=== PATIENT | male | born 1960 | race Caucasian/White ===

== ENCOUNTER → 2017-01-04 | Outpatient (CLI) | payer BC ==
[2016-03-27 10:04] VITALS: BP 153/91
[2017-01-04 15:57] LABS: BLOOD UREA NITROGEN 23 mg/dL (7-18); CALCIUM 8.4 mg/dL (8.5-10.1); CARBON DIOXIDE 27.5 mmol/L (21-32); CHLORIDE 104 mmol/L (98-107); COR NA(FOR HYPERGLY) 144 mmol/L (136-145); GLUCOSE 166 mg/dL (65-99); SODIUM 142 mmol/L (136-145); eGFR BLACK RACES > 60 (>60); eGFR NON BLACK RACES > 60 (>60)
[2017-01-04 16:09] LABS: B-TYPE NATRIURETIC PEPTIDE 76.9 pg/mL (0-79)
--- NOTE | 2017-01-04 16:20 | RAD ---
HISTORY: Edema Study: Chest two-view Comparison: March 26, 2016 Findings: The trachea is midline. The cardiac silhouette is upper limits normal in size. No congestive heart failure is noted.. The lungs are clear without focal infiltrate or effusion. The bony thorax is un remarkable. IMPRESSION: 1. No acute cardiopulmonary disease. Reported By:
== END ==
LOC: LAB 15:23
PROVIDERS: ATTEND Obstetrics & Gynecology Obstetrics
DX: R60.0 Localized edema (principal)
CPT/HCPCS: 36415; 71020; 80048; 83880

== ENCOUNTER 2020-10-19 06:38 | Inpatient (IN) ==
[2020-10-19] MEDS ORDERED: DUONEB 0.5 MG/3 MG (3 mL) NEB ONE (06:50)
[2020-10-19] MEDS ORDERED: NS 1000 ML 1,000 ML ONE ×2 (06:50→22:44)
[2020-10-19] MEDS ORDERED: SOLU-Medrol 125 MG VIAL ONE (06:50)
[2020-10-19] MEDS ORDERED: OFIRMEV IV 1000 MG VIAL 1,000 MG/100 ML VIAL IV ONE ×2 (06:50→07:10)
[2020-10-19 06:59] LABS: ABG BASE EXCESS 3.6 mmol/L (-2.0-2.0); ABG HCO3 25.9 mmol/L (22-26)
[2020-10-19 07:00] LABS: ABG ALLEN TEST POS
[2020-10-19] MEDS ORDERED: SOLU-Medrol 125 MG VIAL IVP ONE (07:05)
[2020-10-19] MEDS: NS 1000 ML 1,000 ML IV SCH ×2 (07:13→22:45)
[2020-10-19] MEDS ORDERED: ZOSYN VIAL 3.375 GRAMS 3.375 G in NS 100 ML IV + SPIKE MINIBAG* 100 ML IV ONE (07:22)
--- NOTE | 2020-10-19 07:23 | DR.SOBA ---
HPI Time Seen Time Seen by Provider: 10/19/20 07:24 Primary Care Physician Primary Care Physician: ANA M ROLAND HPI Comment HPI Comment: PATIENT IS 60YR OLD MALE IN ER WITH INCREASING SOB, COUGH, CONGESTION, LOW OXYGEN SATURATION TIMES 2 DAYS. WORSE TODAY. OXYGEN SATURATION IN THIRTIES IN ER. PATIENT TESTED POSITIVE COVID 19 VIRUS TEST ON 09/12/2021. PATIENT IS WEAK, TIRED AND HAVING GENERALIZED BODY ACHE. PATIENT IS RUNNING FEVER. Complaints Chief Complaint Doctors Comments: INCREASING SOB, LOW OXYGEN SAT, COUGH, CONGESTION AND COVID 19 VIRUS POSITIVE. Chief Complaint:: COVID POSITIVE ON 10/13/20. SHORTNESS OF BREATH BECAME WORSE ON MONDAY. UPON ARRIVAL TO THE ER, PT. EMERY/ASHY IN COLOR. LABORED RESPIRATIONS WITH ACCESSORY MUSCLE USE. SHALLOW RESPIRATIONS. O2 SAT 39% ON ROOM AIR. COVID-19 Coronavirus risk:travel/contact w/high risk person: Yes Has patient experienced Coronavirus symptoms: Yes Coronavirus symptoms experienced: Fever and Shortness of Breath Reviewed Nurses Notes Reviewed: Yes Source History Provided: Patient Mode of Arrival Mode of Arrival: Wheelchair Timing Onset of Chief Complaint: 10/17/20 Duration Duration: Days Context Onset:: At Rest PE Risk Factors:: None History of:: None Currently on:: Neither Modifying Factors Worsens:: Exertion and Lying Flat Improves:: Rest and Sitting Up Associated Signs and Symptoms Associated Signs and Symptoms: Cough and Nasal Congestion If Chest Pain Quality: Aching and Pleuritic Location: Substernal If Cough Cough: Productive and Yellow PMH PMH Past Medical History: Yes Past Medical History: Diabetes, Hypertension and SVT Past Surgical History: Yes Surgical History: Appendectomy and Ortho Surgery Family History History of Family Medical Conditions: Yes Family Medical History: Diabetes Mellitus, Cancer and Hypertension Social History Does patient currently use any type of tobacco product: No Have you used tobacco products in the last 12 months: No Type of Tobacco Use: None Does any household member use tobacco: No Alcohol Use: None Do you use any recreational Drugs:: No Lives With: Family Lives Where: Home Travel Risk Coronavirus risk:travel/contact w/high risk person: Yes Has patient experienced Coronavirus symptoms: Yes Coronavirus symptoms experienced: Fever and Shortness of Breath Infectious screening In the last 2 months have you had wt loss of >10#?: NO Have you had fever, night sweats or hemotysis?: No Have you traveled outside the country in the last 6 months?: No Isolation: Droplet ROS Review of Systems Constitutional: See HPI, Fever, Weakness and Fatigue Eyes: No Symptoms Reported and See HPI ENTM: See HPI, Nose Discharge and Nose Congestion Respiratoy: See HPI, Productive Cough, Short of Breath and Wheezing Cardiovascular: See HPI and Chest Pain (PLEURITIC CHEST PAIN.) Gastrointestinal/Abdominal: No Symptoms Reported and See HPI; negative Abdominal Pain, Diarrhea and Vomiting Genitourinary: No Symptoms Reported and See HPI; negative Dysuria, Frequency and Hematuria Neurological: See HPI, Headache and Weakness Musculoskeletal: See HPI, Back Pain and Muscle Pain Integumentary: No Symptoms Reported and See HPI; negative Change in Color, Rash and Juandice Hematologic/Lymphatic: No Symptoms Reported and See HPI; negative Easy Bruising and Swollen Glands Endocrine: No Symptoms Reported and See HPI; negative Increased Thirst and Increased Urine Psychiatric: No Symptoms Reported and See HPI All Other Systems: Reviewed and Negative PE Vital Signs Vitals: Temperature 103.3 F Pulse Rate 97 Respiratory Rate 29 Blood Pressure [Left Arm] 133/73 Blood Pressure 96/58 O2 Sat by Pulse Oximetry 98 General Limitations: No Limitations General Appearance: Alert and In Distress Head Head Exam: Normal Inspection and Atraumatic Eyes Eye exam: Normal Appearance and PERRL; negative Scleral Icterus and Conjunctival Injection ENT ENT Exam: Normal External Ear Exam and TM's Normal Bilaterally; negative Normal Oropharynx Neck Neck Exam: Normal Inspection, Trachea Midline and Lymphadenopathy; negative Tenderness Chest Chest Inspection: Normal Inspection and Symmetric Chest Wall Rise; negative Tenderness Respiratory Respiratory Exam: Normal Lung Sounds Bilat; negative Accessory Muscle Use Respiratory Exam: Bilateral: Wheezing and Bilateral: Crackles and Lower: Wheezing and Lower: Crackles Cardiovascular Cardiovascular Exam: Regular Rate, Normal Rhythm and Normal Heart Sounds; negative Systolic Murmur and Diastolic Murmur Abdominal Exam Abdominal Exam: Normal Inspection, Normal Bowel Sounds and Soft; negative Tenderness Extremities Extremities Exam: Normal Inspection, Tenderness and Normal Capillary Refill; negative Edema and Calf Tenderness Back Back Exam: Normal Inspection and Tenderness Neurologic Neurological Exam: Alert, Oriented X3 and CN II-XII Intact; negative Motor Sensory Deficit Psychiatric Psychiatric Exam: Normal Affect and Anxious Skin Skin Exam: Dry MDM Additional Information Obtained Additional Information Obtained From: Old Records Differential Diagnosis Differential Diagnosis: Asthma, Bronchitis, CHF, Mycardial Infarction, Pneumonia, Pneumothorax, Pulmonary embolism and Respiratory Insufficiency COURSE Treatment Treatment: SEE ORDERS. PATIENT PLACED ON BI-PAP BY RT IN ER, O2 SAT IMPROVED. NS 1L IV BOLUS, SOLUMEDROL 125MG IV, DUO NEB, TYLENOL 1GM IVPB, ZOSYN 3.375MG IVPB AND REMDISIVIR 200MG IVPB IN ER. Reevaluation 1st: Improved (TEMP IMPROVED) Consultation Consultation Comments: DISCUSSED PATIENT WITH DR. BRUMFIELD. HE WILL ADMIT PATIENT. Education/Counseling Education/Counseling: Patient Educated On: Diagnosis ROR Labs Reviewed Laboratory Results Reviewed?: Yes Result Diagrams: 11/05/20 04:25 11/05/20 04:25 Laboratory: 10/19/20 06:50 Blood Blood Culture - Final 10/19/20 06:50 Blood Blood Culture - Final WBC 23.0 X10^3/uL (3.6-10.0) H 10/19/20 06:50 RBC 4.69 X10^6/uL (4.7-6.0) L 10/19/20 06:50 Hgb 14.8 g/dL (13.5-18.0) 10/19/20 06:50 Hct 43.3 % (42.0-54.0) 10/19/20 06:50 MCV 92.2 fL (80.0-100.0) 10/19/20 06:50 MCH 31.6 pg (27.0-34.0) 10/19/20 06:50 MCHC 34.3 g/dL (33.0-35.0) 10/19/20 06:50 RDW 13.3 % (11.6-16.5) 10/19/20 06:50 Plt Count 331 X10^3/uL (150.0-450.0) 10/19/20 06:50 Plt Count Comment Adequate (ADEQUATE) 10/19/20 06:50 MPV 7.9 fL (7.4-11.0) 10/19/20 06:50 Neut % (Auto) 88.4 % (42.0-75.0) H 10/19/20 06:50 Lymph % (Auto) 4.6 % (21.0-51.0) L 10/19/20 06:50 Lake % (Auto) 6.6 % (0.0-13.0) 10/19/20 06:50 Eos % (Auto) 0.0 % (0.9-2.9) L 10/19/20 06:50 Baso % (Auto) 0.4 % (0.2-1.0) 10/19/20 06:50 Neut # (Auto) 20.3 x10^3/uL (2.2-4.8) H 10/19/20 06:50 Lymph # (Auto) 1.1 X10^3/uL (1.3-2.9) L 10/19/20 06:50 Lake # (Auto) 1.5 x10^3/uL (0.3-0.8) H 10/19/20 06:50 Eos # (Auto) 0.0 x10^3/uL (0.0-0.2) 10/19/20 06:50 Baso # (Auto) 0.1 X10^3/uL (0.0-0.1) 10/19/20 06:50 Absolute Nucleated RBC 0.1 /100WBC 10/19/20 06:50 Total Counted 100 10/19/20 06:50 Neutrophils % (Manual) 93 % (39-76) H 10/19/20 06:50 Band Neutrophils % 1 % (0-10) 10/19/20 06:50 Lymphocytes % (Manual) 3 % (13-43) L 10/19/20 06:50 Monocytes % (Manual) 5 % (4-9) 10/19/20 06:50 Plt Morphology Comment Normal (NORMAL) 10/19/20 06:50 RBC Morphology Normal (NORMAL) 10/19/20 06:50 PT 16.1 SECONDS (11.8-14.3) 10/19/20 06:50 INR Target Range - 10/19/20 06:50 INR 1.33 (0.8-1.3) H 10/19/20 06:50 APTT 31.5 SECONDS (22.9-36.5) 10/19/20 06:50 PTT Comment - 10/19/20 06:50 D-Dimer 0.76 ug/ml (0.0-0.57) H* 10/19/20 06:50 Sample Site Rrad 10/19/20 06:47 ABG pH 7.530 (7.35-7.45) H 10/19/20 06:47 ABG pCO2 31.0 mmHg (35.0-45.0) L 10/19/20 06:47 ABG pO2 33.0 mmHg (80.0-100.0) L* 10/19/20 06:47 ABG HCO3 25.9 mmol/L (22-26) 10/19/20 06:47 ABG O2 Saturation 73.0 % (90-100) L* 10/19/20 06:47 ABG Base Excess 3.6 mmol/L (-2.0-2.0) H 10/19/20 06:47 Abad Test Pos 10/19/20 06:47 A-a Gradient 641.0 mmHg 10/19/20 06:47 FiO2 100.0 10/19/20 06:47 Blood Gas Comments Gail well ah 10/19/20 06:47 Sodium 139 mmol/L (136-145) 10/19/20 06:50 Corrected Sodium 145 mmol/L (136-145) 10/19/20 06:50 Potassium 3.4 mmol/L (3.5-5.1) L 10/19/20 06:50 Chloride 100 mmol/L (98-107) 10/19/20 06:50 Carbon Dioxide 23.5 mmol/L (21-32) 10/19/20 06:50 BUN 26 mg/dL (7-18) H 10/19/20 06:50 Creatinine 1.80 mg/dL (0.70-1.30) H 10/19/20 06:50 Est GFR (MDRD) Af Amer 50 (>60) L 10/19/20 06:50 Est GFR (MDRD) Non-Af 41 (>60) L 10/19/20 06:50 Glucose 361 mg/dL (65-99) H 10/19/20 06:50 Lactic Acid 3.9 mmol/L (0.4-2.0) H 10/19/20 06:50 Calcium 9.7 mg/dL (8.5-10.1) 10/19/20 06:50 Corrected Calcium 10.5 mg/dL (8.5-10.1) H 10/19/20 06:50 Ferritin 779 ng/mL (26-388) H 10/19/20 06:50 Total Bilirubin 1.00 mg/dL (0.2-1.0) 10/19/20 06:50 AST 25 Units/L (15-37) 10/19/20 06:50 ALT 18 Units/L (12-78) 10/19/20 06:50 Alkaline Phosphatase 107 Units/L (46-116) 10/19/20 06:50 Creatine Kinase 49 Units/L (39-308) 10/19/20 06:50 CK-MB (CK-2) < 1.0 ng/mL (0-4.0) 10/19/20 06:50 CK/CKMB % Calc 2.0 % (<4) 10/19/20 06:50 Troponin I 0.07 ng/mL (0-1.5) 10/19/20 06:50 C-Reactive Protein 373.20 mg/L (0-3.0) H 10/19/20 06:50 B-Natriuretic Peptide 227 pg/mL (0-79) H 10/19/20 06:50 Total Protein 8.7 g/dL (6.4-8.2) H 10/19/20 06:50 Albumin 3.0 g/dL (3.4-5.0) L 10/19/20 06:50 Globulin 5.7 g/dL (2.5-4.5) H 10/19/20 06:50 Albumin/Globulin Ratio 0.5 Ratio (1.1-2.1) L 10/19/20 06:50 XRAY XRAY Interpreted by: Radiologist (REPORT NOTED AND DISCUSSED WITH PATIENT.) and Self EKG Rate: 109 Barton: Normal Rhythm: ST Block: RBBB and IVCD Hypertrophy: LAE ST: Nonsp Opioid Opioid Risk Tool Age (Luiz box if 16-45): No History of Preadolescent Sexual Abuse: No Total: 0 Total Score Risk Category: Low Risk Copyright: Rah KRAFT predicting aberrant behaviors Diagnosis Discharge Problem: Hypoxia, Acute respiratory distress Pneumonia Qualifiers: Pneumonia type: due to unspecified organism Laterality: bilateral Lung location: lower lobe of lung Qualified Code(s): J18.9 - Pneumonia, unspecified organism Instructions Forms: EUA Consent Excuse From Work or School Precautions for COVID19 Patient Portal Social Distancing
--- NOTE | 2020-10-19 07:27 | RAD ---
HISTORYShortness of breath, COVID-19STUDYChest AP portableCOMPARISONNoneFINDINGSPatient is rotated slightly to the left. Hypo inflation accentuates the heart size. It is likely within normal limits. Bilateral mild interstitial lung changes are present. No definite ground-glass or alveolar infiltrates or pleural effusions identified. Bony thorax is unremarkable.IMPRESSIONHypo inflationBilateral perihilar interstitial infiltrates, mildElectronically signed by: HERNAN GALVIN (Oct 19, 2020 07:24:47)
[2020-10-19 07:42] LABS: BASOPHILS # (AUTO) 0.1 X10^3/uL (0.0-0.1); BASOPHILS % (AUTO) 0.4 % (0.2-1.0); HEMATOCRIT 43.3 % (42.0-54.0); HEMOGLOBIN 14.8 g/dL (13.5-18.0); LYMPHOCYTES # (AUTO) 1.1 X10^3/uL (1.3-2.9); LYMPHOCYTES % (AUTO) 4.6 % (21.0-51.0); MEAN CORPUSCULAR HEMOGLOBIN 31.6 pg (27.0-34.0); MEAN CORPUSCULAR HGB CONC 34.3 g/dL (33.0-35.0); MEAN CORPUSCULAR VOLUME 92.2 fL (80.0-100.0); MEAN PLATELET VOLUME 7.9 fL (7.4-11.0); MONOCYTES # (AUTO) 1.5 x10^3/uL (0.3-0.8); MONOCYTES % (AUTO) 6.6 % (0.0-13.0); NEUTROPHILS # (AUTO) 20.3 x10^3/uL (2.2-4.8); NEUTROPHILS % (AUTO) 88.4 % (42.0-75.0); PLATELET COUNT 331 X10^3/uL (150.0-450.0); RED BLOOD COUNT 4.69 X10^6/uL (4.7-6.0); RED CELL DISTRIBUTION WIDTH 13.3 % (11.6-16.5)
[2020-10-19] MEDS ORDERED: ZOSYN VIAL 3.375 GRAMS IV ONE ×3 (07:52→22:03)
[2020-10-19 07:58] LABS: BLOOD UREA NITROGEN 26 mg/dL (7-18); CALCIUM 9.7 mg/dL (8.5-10.1); CARBON DIOXIDE 23.5 mmol/L (21-32); CHLORIDE 100 mmol/L (98-107); COR NA(FOR HYPERGLY) 145 mmol/L (136-145); LACTIC ACID 3.9 mmol/L (0.4-2.0); SODIUM 139 mmol/L (136-145); TROPONIN I 0.07 ng/mL (0-1.5); eGFR NON BLACK RACES 41 (>60)
[2020-10-19 08:02] LABS: ALANINE AMINOTRANSFERASE 18 Units/L (12-78); ALKALINE PHOSPHATASE 107 Units/L (46-116); ASPARTATE AMINO TRANSFERASE 25 Units/L (15-37); COR CA(FOR HYPOALB) 10.5 mg/dL (8.5-10.1); CREATINE KINASE 49 Units/L (39-308); CREATINE KINASE MB < 1.0 ng/mL (0-4.0); TOTAL PROTEIN 8.7 g/dL (6.4-8.2)
[2020-10-19 08:08] LABS: BAND NEUTROPHILS % 1 % (0-10); PLATELET MORPHOLOGY COMMENT NORMAL (NORMAL)
[2020-10-19] MEDS: ZOSYN VIAL 3.375 GRAMS 3.375 G in NS 100 ML IV + SPIKE MINIBAG* 100 ML IV SCH ×3 (09:41→23:25)
[2020-10-19] MEDS ORDERED: NS 250 ML IV 250 ML IV ONE ×2 (09:42→12:48)
[2020-10-19] MEDS ORDERED: REMDESIVIR IV ONE (09:42)
[2020-10-19] MEDS: REMDESIVIR 200 MG in NS 250 ML IV 250 ML IV ONE ×2 (09:52→09:53)
[2020-10-19] MEDS ORDERED: REMDESIVIR 200 MG in NS 250 ML IV 250 ML IV ONE (09:54)
[2020-10-19] MEDS ORDERED: TUSSIONEX PENNKINETIC SUSP PO PRN (09:54)
[2020-10-19] MEDS ORDERED: VITAMIN D (1.25MG) PO SCH (09:54)
[2020-10-19] MEDS ORDERED: VITAMIN A PO SCH (09:54)
[2020-10-19] MEDS ORDERED: LIPITOR TAB 80 MG ONE (10:35)
[2020-10-19] MEDS ORDERED: TRICOR TAB 160 MG ONE (10:36)
[2020-10-19] MEDS ORDERED: PEPCID TAB 40 MG ONE ×2 (10:36→22:02)
[2020-10-19] MEDS ORDERED: ROBITUSSIN DM ONE ×4 (10:36→22:03)
[2020-10-19] MEDS ORDERED: LOVENOX INJ 30 MG SYR SC ONE ×3 (10:36→22:24)
[2020-10-19] MEDS ORDERED: ZINC SULFATE ONE ×2 (10:36→22:02)
[2020-10-19] MEDS ORDERED: NS 100 ML IV 100 ML IV ONE ×2 (10:38→22:03)
[2020-10-19] MEDS: ASCORBIC ACID INJ MULTI-DOSE VIAL 1,500 MG in NS 100 ML IV 100 ML IV SCH ×3 (10:39→22:21)
[2020-10-19] MEDS: LIPITOR TAB 80 MG PO SCH (10:40)
[2020-10-19] MEDS: LOVENOX INJ 30 MG SYR SC SCH ×2 (10:41→22:25)
[2020-10-19] MEDS: PEPCID TAB 40 MG PO SCH ×2 (10:41→22:15)
[2020-10-19] MEDS: TRICOR TAB 160 MG PO SCH (10:42)
[2020-10-19] MEDS: ROBITUSSIN DM PO SCH ×4 (10:42→22:16)
[2020-10-19] MEDS: VSL#3 PO SCH (10:43)
[2020-10-19] MEDS: ZINC SULFATE PO SCH ×2 (10:44→22:15)
[2020-10-19] MEDS: NS 1/2 1000 ML IV 1,000 ML IV SCH ×2 (10:45→23:32)
[2020-10-19 11:30] VITALS: BMI 36.9
[2020-10-19] MEDS: HumuLIN R SUBCUT PRN ×3 (12:42→22:20)
[2020-10-19] MEDS ORDERED: HumuLIN R ONE ×4 (12:44→22:11)
[2020-10-19] MEDS ORDERED: ZITHROMAX INJ 500 MG VIAL IV ONE (12:47)
[2020-10-19] MEDS: ZITHROMAX INJ 500 MG VIAL 500 MG in NS 250 ML IV 250 ML IV SCH ×2 (12:53→12:54)
[2020-10-19] MEDS ORDERED: NS 100 ML IV + SPIKE MINIBAG* 100 ML IV ONE ×2 (14:49→22:03)
[2020-10-19] MEDS ORDERED: ASCORBIC ACID INJ MULTI-DOSE VIAL IV ONE ×2 (16:51→22:04)
[2020-10-19] MEDS ORDERED: NS 50 ML IV 50 ML IV ONE (16:51)
--- NOTE | 2020-10-19 18:55 | DR.H&P ---
H&P - History & Physical for Day of: H&P Date: 10/19/20 - Chief Complaint Chief Complaint: SOB, CHEST PRESSURE, COVID 19 + - History of Present Illness History of Present Illness: COVID POSITIVE ON 10/13/20. SHORTNESS OF BREATH BECAME WORSE ON MONDAY. UPON ARRIVAL TO THE ER, PT. EMERY/ASHY IN COLOR. LABORED RESPIRATIONS WITH ACCESSORY MUSCLE USE. SHALLOW RESPIRATIONS. O2 SAT 39% ON ROOM AIR. PT HAS TAKE ROUND OF ANTIBIOTICS AND STEROIDS SINCE 10/13. PT HAS PMH OF HTN AND DM. PT ADMITTED FOR TREATMENT OF COVID PNEUMONIA WITH ACUTE RESPIRATORY FAILURE. - Past Medical History Past Medical History: Arthritis, Diabetes, Hypertension, SVT - Past Surgical History Surgical History: Appendectomy, Ortho Surgery - Family History Family Medical History: Diabetes Mellitus, Cancer, Hypertension - Social History Does patient currently use any type of tobacco product: No Have you used tobacco products in the last 12 months: No Type of Tobacco Use: None Does any household member use tobacco: No Alcohol Use: None Drug Use: None - Medications Home Medications: No Known Drug Allergies Allergy (Verified 10/19/20 06:47) - Review of Systems Constitutional: Weakness, Malaise Eyes: No Symptoms Reported ENT: No Symptoms Reported Respiratory: Cough, Shortness of Breath, SOB with Excertion, Wheezing Cardiovascular: Chest Pain Gastrointestinal: Nausea Genitourinary: No Symptoms Reported Musculoskeletal: No Symptoms Reported Skin: No Symptoms Reported Neurological: No Symptoms Reported - Physical Exam Vital Signs: Temperature 98.2 F Pulse Rate [Apical] 77 Pulse Rate 115 Respiratory Rate 16 Blood Pressure [Left Arm] 125/62 Blood Pressure 96/58 O2 Sat by Pulse Oximetry 100 Oriented: Normal Eyes: Normal Ear: Normal Nose: Normal Throat: Normal Respiratory: Diminished Throughout Cardiovascular: Tachycardia : Normal Auscultation: Bowel Sounds: Normal Palpation: Normal Tenderness: Normal Skin: Decreased Turgur Musculoskeletal: Normal Psychiatric: Anxiety Affect: Anxious Speech Pattern: Clear, Appropriate - Assessment/Plan (1) Pneumonia due to COVID-19 virus Status: Acute Plan: ADMIT, SUPPLEMENTAL O2, BIPAP PRN. ADMISSION ABG, REPEAT Q AM, AM CXR. ADMISSION LABS, IV REMDESIVIR, IV ATBX. IV SOLU MEDROL, RT, PT, IV HYDRATION. BS CONTROL, BP AND CARDIAC MONITORING. (2) Hypertension Status: Acute (3) COVID-19 Status: Acute (4) Diabetes mellitus Status: Acute - Allergies Allergies/Adverse Reactions: Allergies Allergy/AdvReac Type Severity Reaction Status Date / Time No Known Drug Allergies Allergy Verified 10/19/20 06:47
[2020-10-19 19:56] LABS: CKMB % 1.7 % (<4); CREATINE KINASE 58 Units/L (39-308); CREATINE KINASE MB < 1.0 ng/mL (0-4.0)
[2020-10-19] MEDS: SNACK - Diabetic Appropriate PO SCH (22:08)
[2020-10-20] MEDS ORDERED: NS 100 ML IV 100 ML IV ONE ×3 (02:22→13:45)
[2020-10-20] MEDS ORDERED: ASCORBIC ACID INJ MULTI-DOSE VIAL IV ONE (02:22)
[2020-10-20] MEDS: ASCORBIC ACID INJ MULTI-DOSE VIAL 1,500 MG in NS 100 ML IV 100 ML IV SCH ×4 (03:18→21:18)
[2020-10-20 04:45] LABS: ABG ALLEN TEST POS; ABG BASE EXCESS 4.3 mmol/L (-2.0-2.0); ABG HCO3 29.2 mmol/L (22-26)
--- NOTE | 2020-10-20 05:09 | RAD ---
PROCEDURE: Chest X-ray 1 View .HISTORY: PNEUMONIA .TECHNIQUE: AP view .COMPARISON: 10/19/2020.TECHNICAL QUALITY: Satisfactory .FINDINGS:Patient is rotated to the left.Unchanged cardiomediastinal silhouette.Some mild consolidation lung bases consistent with pneumonia slightly increased on the right and unchanged on the left. No pleural fluid or pneumothorax.IMPRESSION:Some increase in pneumonia on the right and unchanged on the left.Electronically signed by: Manpreet Klein (Oct 20, 2020 05:07:59)
[2020-10-20] MEDS ORDERED: ZOSYN VIAL 3.375 GRAMS IV ONE ×2 (05:20→13:45)
[2020-10-20] MEDS ORDERED: NS 100 ML IV + SPIKE MINIBAG* 100 ML IV ONE ×2 (05:21→13:45)
[2020-10-20] MEDS: ZOSYN VIAL 3.375 GRAMS 3.375 G in NS 100 ML IV + SPIKE MINIBAG* 100 ML IV SCH ×3 (05:37→22:27)
[2020-10-20] MEDS ORDERED: HumuLIN R ONE ×2 (05:42→11:15)
[2020-10-20] MEDS: HumuLIN R SUBCUT PRN ×4 (05:45→21:08)
[2020-10-20 06:52] LABS: BASOPHILS % (AUTO) 0.1 % (0.2-1.0); HEMATOCRIT 37.4 % (42.0-54.0); HEMOGLOBIN 12.8 g/dL (13.5-18.0); LYMPHOCYTES # (AUTO) 0.5 X10^3/uL (1.3-2.9); LYMPHOCYTES % (AUTO) 2.5 % (21.0-51.0); MEAN CORPUSCULAR HEMOGLOBIN 31.7 pg (27.0-34.0); MEAN CORPUSCULAR HGB CONC 34.2 g/dL (33.0-35.0); MEAN CORPUSCULAR VOLUME 92.5 fL (80.0-100.0); MEAN PLATELET VOLUME 8.1 fL (7.4-11.0); MONOCYTES # (AUTO) 1.3 x10^3/uL (0.3-0.8); MONOCYTES % (AUTO) 6.7 % (0.0-13.0); NEUTROPHILS # (AUTO) 17.8 x10^3/uL (2.2-4.8); NEUTROPHILS % (AUTO) 90.7 % (42.0-75.0); PLATELET COUNT 258 X10^3/uL (150.0-450.0); RED BLOOD COUNT 4.04 X10^6/uL (4.7-6.0); RED CELL DISTRIBUTION WIDTH 13.7 % (11.6-16.5); WHITE BLOOD COUNT 19.6 X10^3/uL (3.6-10.0)
[2020-10-20 07:19] LABS: ALANINE AMINOTRANSFERASE 21 Units/L (12-78); ALBUMIN 2.6 g/dL (3.4-5.0); ALKALINE PHOSPHATASE 85 Units/L (46-116); ASPARTATE AMINO TRANSFERASE 24 Units/L (15-37); BLOOD UREA NITROGEN 39 mg/dL (7-18); CALCIUM 8.6 mg/dL (8.5-10.1); CARBON DIOXIDE 25.3 mmol/L (21-32); CHLORIDE 105 mmol/L (98-107); CKMB % 0.9 % (<4); COR CA(FOR HYPOALB) 9.7 mg/dL (8.5-10.1); COR NA(FOR HYPERGLY) 147 mmol/L (136-145); CREATINE KINASE 107 Units/L (39-308); CREATINE KINASE MB < 1.0 ng/mL (0-4.0); CREATININE 1.63 mg/dL (0.70-1.30); SODIUM 142 mmol/L (136-145); TOTAL PROTEIN 7.6 g/dL (6.4-8.2); TROPONIN I 0.14 ng/mL (0-1.5); eGFR NON BLACK RACES 46 (>60)
[2020-10-20] MEDS ORDERED: LIPITOR TAB 80 MG ONE (07:45)
[2020-10-20] MEDS ORDERED: TRICOR TAB 160 MG ONE (07:45)
[2020-10-20] MEDS ORDERED: ZINC SULFATE ONE (07:45)
[2020-10-20] MEDS ORDERED: PEPCID TAB 40 MG ONE (07:46)
[2020-10-20] MEDS ORDERED: REMDESIVIR IV ONE (07:47)
[2020-10-20] MEDS ORDERED: LOVENOX INJ 30 MG SYR SC ONE (07:47)
[2020-10-20] MEDS ORDERED: ZITHROMAX INJ 500 MG VIAL IV ONE (07:47)
[2020-10-20] MEDS ORDERED: ROBITUSSIN DM ONE ×2 (07:48→13:45)
[2020-10-20] MEDS ORDERED: NS 250 ML IV 500 ML IV ONE (07:48)
[2020-10-20 08:08] LABS: BAND NEUTROPHILS % 2 % (0-10); PLATELET MORPHOLOGY COMMENT NORMAL (NORMAL)
[2020-10-20] MEDS: ZITHROMAX INJ 500 MG VIAL 500 MG in NS 250 ML IV 250 ML IV SCH (08:24)
[2020-10-20] MEDS: ZINC SULFATE PO SCH ×2 (08:25→21:05)
[2020-10-20] MEDS: TRICOR TAB 160 MG PO SCH (08:26)
[2020-10-20] MEDS: VSL#3 PO SCH (08:26)
[2020-10-20] MEDS: ROBITUSSIN DM PO SCH ×4 (08:27→21:06)
[2020-10-20] MEDS: LIPITOR TAB 80 MG PO SCH (08:27)
[2020-10-20] MEDS: REMDESIVIR 100 MG in NS 250 ML IV 250 ML IV SCH (08:29)
[2020-10-20] MEDS: PEPCID TAB 40 MG PO SCH (08:30)
[2020-10-20] MEDS: LOVENOX INJ 30 MG SYR SC SCH ×2 (08:31→21:14)
[2020-10-20] MEDS ORDERED: ZOFRAN INJ 4 MG VIAL IVP ONE (10:35)
[2020-10-20] MEDS ORDERED: TYLENOL 325 MG TAB PO ONE ×3 (10:35→22:05)
[2020-10-20] MEDS ORDERED: ZOFRAN INJ 4 MG VIAL ONE (10:39)
[2020-10-20] MEDS ORDERED: PROTONIX INJ 40 MG VIAL ONE (13:45)
[2020-10-20 14:10] LABS: CKMB % 0.8 % (<4); CREATINE KINASE 129 Units/L (39-308); CREATINE KINASE MB < 1.0 ng/mL (0-4.0)
[2020-10-20 14:11] LABS: LACTIC ACID 1.4 mmol/L (0.4-2.0)
[2020-10-20 14:15] LABS: BILIRUBIN,URINE NEGATIVE (NEGATIVE); BLOOD/HEMOGLOBIN,URINE 1+ (NEGATIVE); GLUCOSE, URINE 3+ (NEGATIVE); KETONES,URINE NEGATIVE (NEGATIVE); LEUKOCYTE ESTERASE ,URINE NEGATIVE (NEGATIVE); NITRITES,URINE NEGATIVE (NEGATIVE); PROTEIN,URINE 2+ (NEGATIVE); UROBILINOGEN,URINE NORMAL (NORMAL)
[2020-10-20] MEDS: PROTONIX INJ 40 MG VIAL IVP SCH ×2 (14:16→21:13)
[2020-10-20 14:24] LABS: APPEARANCE,URINE HAZY (CLEAR); COLOR,URINE YELLOW (YELLOW)
[2020-10-20 14:25] LABS: AMORPHOUS SEDIMENT,UR 1+ /HPF (NEGATIVE); BACTERIA,URINE 1+ /HPF (NEGATIVE); MUCUS,URINE FEW /HPF (NEGATIVE); RBC,URINE 0-2 /HPF (0-3); SQUAMOUS EPITHELIAL CELL,UR RARE /HPF (NEGATIVE)
[2020-10-20] MEDS: NS 1/2 1000 ML IV 1,000 ML IV SCH (14:25)
[2020-10-20] MEDS ORDERED: POTASSIUM CHL 60 MEQ/NS 0.45% 500 ML IV PRN (19:35)
[2020-10-20] MEDS ORDERED: MICRO K EXTEN CAP 10 MEQ PO PRN (19:35)
[2020-10-20] MEDS ORDERED: KLOR-CON PO PRN (19:35)
[2020-10-20] MEDS ORDERED: POTASSIUM CHL 40 MEQ/NS 0.45% 500 ML IV PRN (19:35)
[2020-10-20] MEDS: SNACK - Diabetic Appropriate PO SCH (20:46)
[2020-10-20] MEDS: TYLENOL 325 MG TAB PO PRN (22:18)
[2020-10-20] MEDS: K-RIDER 10 MEQ/NS 100 ML 10 MEQ/100 ML BAG IV PRN ×2 (22:21→23:39)
[2020-10-21] MEDS ORDERED: NS 1/2 1000 ML IV 1,000 ML IV ONE (02:19)
[2020-10-21] MEDS: ASCORBIC ACID INJ MULTI-DOSE VIAL 1,500 MG in NS 100 ML IV 100 ML IV SCH ×4 (02:26→20:46)
[2020-10-21] MEDS: NS 1/2 1000 ML IV 1,000 ML IV SCH ×3 (02:27→18:24)
[2020-10-21] MEDS: ZOSYN VIAL 3.375 GRAMS 3.375 G in NS 100 ML IV + SPIKE MINIBAG* 100 ML IV SCH ×3 (05:05→21:50)
[2020-10-21] MEDS: HumuLIN R SUBCUT PRN ×2 (05:43→21:52)
[2020-10-21] MEDS ORDERED: LEVEMIR SC ONE ×2 (08:24→11:55)
[2020-10-21] MEDS: ZINC SULFATE PO SCH ×2 (08:30→20:48)
[2020-10-21] MEDS: ROBITUSSIN DM PO SCH ×4 (08:30→20:49)
[2020-10-21] MEDS: REMDESIVIR 100 MG in NS 250 ML IV 250 ML IV SCH (08:30)
[2020-10-21] MEDS: ZITHROMAX INJ 500 MG VIAL 500 MG in NS 250 ML IV 250 ML IV SCH (08:30)
[2020-10-21] MEDS: PROTONIX INJ 40 MG VIAL IVP SCH ×2 (08:30→20:50)
[2020-10-21] MEDS: VITAMIN D3 125 mcg (5,000 UNITS) PO SCH (08:30)
[2020-10-21] MEDS: TRICOR TAB 160 MG PO SCH (08:30)
[2020-10-21] MEDS: LOVENOX INJ 30 MG SYR SC SCH ×2 (08:30→20:51)
[2020-10-21] MEDS: VITAMIN A PO SCH (08:30)
[2020-10-21] MEDS: LIPITOR TAB 80 MG PO SCH (08:30)
[2020-10-21] MEDS: PEPCID TAB 40 MG PO SCH (08:30)
[2020-10-21] MEDS: VSL#3 PO SCH (08:30)
[2020-10-21 08:59] LABS: BASOPHILS % (AUTO) 0.1 % (0.2-1.0); EOSINOPHILS % (AUTO) 0.1 % (0.9-2.9); HEMATOCRIT 35.8 % (42.0-54.0); HEMOGLOBIN 12.2 g/dL (13.5-18.0); LYMPHOCYTES # (AUTO) 0.6 X10^3/uL (1.3-2.9); LYMPHOCYTES % (AUTO) 3.6 % (21.0-51.0); MEAN CORPUSCULAR HEMOGLOBIN 31.6 pg (27.0-34.0); MEAN CORPUSCULAR HGB CONC 33.9 g/dL (33.0-35.0); MEAN CORPUSCULAR VOLUME 93.2 fL (80.0-100.0); MEAN PLATELET VOLUME 7.8 fL (7.4-11.0); MONOCYTES # (AUTO) 1.6 x10^3/uL (0.3-0.8); MONOCYTES % (AUTO) 9.8 % (0.0-13.0); NEUTROPHILS # (AUTO) 14.4 x10^3/uL (2.2-4.8); NEUTROPHILS % (AUTO) 86.4 % (42.0-75.0); PLATELET COUNT 222 X10^3/uL (150.0-450.0); RED BLOOD COUNT 3.84 X10^6/uL (4.7-6.0); RED CELL DISTRIBUTION WIDTH 13.7 % (11.6-16.5); WHITE BLOOD COUNT 16.7 X10^3/uL (3.6-10.0)
[2020-10-21 09:02] LABS: ABG BASE EXCESS 5.3 mmol/L (-2.0-2.0)
[2020-10-21 09:03] LABS: ABG HCO3 30.5 mmol/L (22-26)
[2020-10-21 09:38] LABS: CKMB % 0.8 % (<4); CREATINE KINASE 120 Units/L (39-308); CREATINE KINASE MB < 1.0 ng/mL (0-4.0); TROPONIN I 0.04 ng/mL (0-1.5)
[2020-10-21 09:43] LABS: ALBUMIN 2.3 g/dL (3.4-5.0); CALCIUM 8.6 mg/dL (8.5-10.1); CARBON DIOXIDE 26.5 mmol/L (21-32); CREATININE 1.62 mg/dL (0.70-1.30); TOTAL PROTEIN 7.3 g/dL (6.4-8.2)
--- NOTE | 2020-10-21 09:53 | RAD ---
HISTORYPNEUMONIA, COVIDSTUDYCHEST, 1 VIEWCOMPARISONPortable chest October 20, 2020FINDINGSThe trachea is midline. The cardiac silhouette is enlarged and stable in size. There are low lung volumes with elevation the right hemidiaphragm.. The lungs are clear without focal infiltrate or effusion. The bony thorax is unremarkable.IMPRESSIONLow lung volumes especially on the right cardiomegaly and stable interstitial infiltrates in both lung bases without change compared to October 20, 2020 but mildly increased compared to the film of October 19, 2020.Electronically signed by: JENNIE BECERRA (Oct 21, 2020 09:51:55)
[2020-10-21] MEDS: TYLENOL 325 MG TAB PO PRN (11:28)
[2020-10-21] MEDS: SOLU-Medrol 125 MG VIAL IVP SCH ×3 (12:30→21:51)
[2020-10-21] MEDS ORDERED: SNACK - Diabetic Appropriate PO SCH (20:00)
[2020-10-21] MEDS: SNACK - Diabetic Appropriate PO SCH (22:22)
[2020-10-22] MEDS: ASCORBIC ACID INJ MULTI-DOSE VIAL 1,500 MG in NS 100 ML IV 100 ML IV SCH ×4 (02:51→22:21)
[2020-10-22 04:40] LABS: ABG BASE EXCESS 6.1 mmol/L (-2.0-2.0)
[2020-10-22 04:41] LABS: ABG ALLEN TEST POS
[2020-10-22] MEDS: ZOSYN VIAL 3.375 GRAMS 3.375 G in NS 100 ML IV + SPIKE MINIBAG* 100 ML IV SCH ×3 (05:00→22:22)
[2020-10-22] MEDS: SOLU-Medrol 125 MG VIAL IVP SCH ×3 (05:38→22:22)
[2020-10-22] MEDS: HumuLIN R SUBCUT PRN ×4 (06:00→22:23)
[2020-10-22 06:24] LABS: BASOPHILS % (AUTO) 0.1 % (0.2-1.0); HEMATOCRIT 34.9 % (42.0-54.0); HEMOGLOBIN 11.7 g/dL (13.5-18.0); LYMPHOCYTES # (AUTO) 0.4 X10^3/uL (1.3-2.9); LYMPHOCYTES % (AUTO) 3.2 % (21.0-51.0); MEAN CORPUSCULAR HEMOGLOBIN 31.2 pg (27.0-34.0); MEAN CORPUSCULAR HGB CONC 33.5 g/dL (33.0-35.0); MEAN CORPUSCULAR VOLUME 93.3 fL (80.0-100.0); MEAN PLATELET VOLUME 7.9 fL (7.4-11.0); MONOCYTES # (AUTO) 0.4 x10^3/uL (0.3-0.8); MONOCYTES % (AUTO) 3.1 % (0.0-13.0); NEUTROPHILS % (AUTO) 93.6 % (42.0-75.0); PLATELET COUNT 216 X10^3/uL (150.0-450.0); RED BLOOD COUNT 3.74 X10^6/uL (4.7-6.0); RED CELL DISTRIBUTION WIDTH 13.9 % (11.6-16.5); WHITE BLOOD COUNT 13.9 X10^3/uL (3.6-10.0)
[2020-10-22 06:36] LABS: ALANINE AMINOTRANSFERASE 19 Units/L (12-78); ALBUMIN 2.1 g/dL (3.4-5.0); ALKALINE PHOSPHATASE 77 Units/L (46-116); ASPARTATE AMINO TRANSFERASE 24 Units/L (15-37); BLOOD UREA NITROGEN 36 mg/dL (7-18); CALCIUM 8.5 mg/dL (8.5-10.1); CARBON DIOXIDE 28.9 mmol/L (21-32); CHLORIDE 108 mmol/L (98-107); COR NA(FOR HYPERGLY) 149 mmol/L (136-145); CREATININE 1.43 mg/dL (0.70-1.30); SODIUM 145 mmol/L (136-145); TOTAL PROTEIN 6.9 g/dL (6.4-8.2); eGFR NON BLACK RACES 54 (>60)
[2020-10-22 07:28] LABS: BAND NEUTROPHILS % 1 % (0-10); PLATELET MORPHOLOGY COMMENT NORMAL (NORMAL)
[2020-10-22] MEDS: PROTONIX INJ 40 MG VIAL IVP SCH ×2 (10:00→22:22)
[2020-10-22] MEDS: ZINC SULFATE PO SCH ×2 (10:00→22:22)
[2020-10-22] MEDS: TRICOR TAB 160 MG PO SCH (10:00)
[2020-10-22] MEDS: VITAMIN D3 125 mcg (5,000 UNITS) PO SCH (10:00)
[2020-10-22] MEDS: REMDESIVIR 100 MG in NS 250 ML IV 250 ML IV SCH (10:00)
[2020-10-22] MEDS: PEPCID TAB 40 MG PO SCH (10:00)
[2020-10-22] MEDS: VITAMIN A PO SCH (10:00)
[2020-10-22] MEDS: LIPITOR TAB 80 MG PO SCH (10:00)
[2020-10-22] MEDS: ZITHROMAX INJ 500 MG VIAL 500 MG in NS 250 ML IV 250 ML IV SCH (10:00)
[2020-10-22] MEDS: VSL#3 PO SCH (10:00)
[2020-10-22] MEDS: ROBITUSSIN DM PO SCH ×4 (10:00→22:23)
[2020-10-22] MEDS: LOVENOX INJ 30 MG SYR SC SCH ×2 (11:49→22:21)
[2020-10-22] MEDS: NS 1/2 1000 ML IV 1,000 ML IV SCH ×2 (16:10→22:22)
[2020-10-22] MEDS: SNACK - Diabetic Appropriate PO SCH (22:21)
[2020-10-23] MEDS: ASCORBIC ACID INJ MULTI-DOSE VIAL 1,500 MG in NS 100 ML IV 100 ML IV SCH ×4 (02:32→23:59)
[2020-10-23] MEDS: SOLU-Medrol 125 MG VIAL IVP SCH ×2 (05:27→14:27)
[2020-10-23] MEDS: ZOSYN VIAL 3.375 GRAMS 3.375 G in NS 100 ML IV + SPIKE MINIBAG* 100 ML IV SCH ×2 (05:27→15:00)
--- NOTE | 2020-10-23 05:39 | RAD ---
PROCEDURE: Chest X-ray 1 View .HISTORY: COVID+; F/U .TECHNIQUE: AP view .COMPARISON: 10/21/2020.TECHNICAL QUALITY: Poor inspiratory effort.FINDINGS:Unchanged prominent size heart.Mediastinum and hilar regions are unremarkable.Normal central vascularity.Increased density to the patient's pneumonia bilaterally with no pleural fluid or pneumothorax.IMPRESSION:Mild increase pneumonia bilaterally.Electronically signed by: Manpreet Klein (Oct 23, 2020 05:38:04)
[2020-10-23] MEDS: HumuLIN R SUBCUT PRN ×4 (05:52→22:32)
[2020-10-23 06:20] LABS: ABG BASE EXCESS 6.3 mmol/L (-2.0-2.0)
[2020-10-23 06:21] LABS: ABG HCO3 30.6 mmol/L (22-26)
[2020-10-23 06:22] LABS: ABG ALLEN TEST POSS
[2020-10-23 06:52] LABS: BASOPHILS % (AUTO) 0.1 % (0.2-1.0); HEMATOCRIT 36.6 % (42.0-54.0); HEMOGLOBIN 11.9 g/dL (13.5-18.0); LYMPHOCYTES # (AUTO) 0.5 X10^3/uL (1.3-2.9); MEAN CORPUSCULAR HEMOGLOBIN 30.6 pg (27.0-34.0); MEAN CORPUSCULAR HGB CONC 32.6 g/dL (33.0-35.0); MEAN CORPUSCULAR VOLUME 93.7 fL (80.0-100.0); MEAN PLATELET VOLUME 8.9 fL (7.4-11.0); MONOCYTES # (AUTO) 0.7 x10^3/uL (0.3-0.8); MONOCYTES % (AUTO) 2.9 % (0.0-13.0); NEUTROPHILS # (AUTO) 22.2 x10^3/uL (2.2-4.8); PLATELET COUNT 263 X10^3/uL (150.0-450.0); RED CELL DISTRIBUTION WIDTH 13.7 % (11.6-16.5)
[2020-10-23 06:56] LABS: ALANINE AMINOTRANSFERASE 19 Units/L (12-78); ALBUMIN 2.1 g/dL (3.4-5.0); ALKALINE PHOSPHATASE 87 Units/L (46-116); ASPARTATE AMINO TRANSFERASE 26 Units/L (15-37); BLOOD UREA NITROGEN 43 mg/dL (7-18); CALCIUM 8.7 mg/dL (8.5-10.1); CARBON DIOXIDE 25.7 mmol/L (21-32); CHLORIDE 105 mmol/L (98-107); COR CA(FOR HYPOALB) 10.2 mg/dL (8.5-10.1); COR NA(FOR HYPERGLY) 151 mmol/L (136-145); CREATININE 1.41 mg/dL (0.70-1.30); SODIUM 144 mmol/L (136-145); TOTAL PROTEIN 6.7 g/dL (6.4-8.2); eGFR NON BLACK RACES 55 (>60)
[2020-10-23 07:33] LABS: WHITE BLOOD COUNT 23.4 X10^3/uL (3.6-10.0)
[2020-10-23 07:34] LABS: BAND NEUTROPHILS % 1 % (0-10); PLATELET MORPHOLOGY COMMENT NORMAL (NORMAL)
[2020-10-23] MEDS: LIPITOR TAB 80 MG PO SCH (08:51)
[2020-10-23] MEDS: PEPCID TAB 40 MG PO SCH (08:55)
[2020-10-23] MEDS: LOVENOX INJ 30 MG SYR SC SCH ×2 (08:56→22:32)
[2020-10-23] MEDS: ROBITUSSIN DM PO SCH ×3 (09:02→18:09)
[2020-10-23] MEDS: TRICOR TAB 160 MG PO SCH (09:03)
[2020-10-23] MEDS: REMDESIVIR 100 MG in NS 250 ML IV 250 ML IV SCH (09:03)
[2020-10-23] MEDS: VITAMIN D3 125 mcg (5,000 UNITS) PO SCH (09:04)
[2020-10-23] MEDS: VITAMIN A PO SCH (09:05)
[2020-10-23] MEDS: VSL#3 PO SCH (09:06)
[2020-10-23] MEDS: ZINC SULFATE PO SCH ×2 (09:07→21:29)
[2020-10-23] MEDS: PROTONIX INJ 40 MG VIAL IVP SCH (10:00)
[2020-10-23] MEDS: ZITHROMAX INJ 500 MG VIAL 500 MG in NS 250 ML IV 250 ML IV SCH (11:00)
[2020-10-23] MEDS: NS 1/2 1000 ML IV 1,000 ML IV SCH ×2 (14:28→18:08)
[2020-10-23 16:00] LABS: ABG ALLEN TEST POS; ABG BASE EXCESS 6.3 mmol/L (-2.0-2.0); ABG HCO3 29.4 mmol/L (22-26)
[2020-10-23] MEDS ORDERED: LASIX IVP SCH (16:00)
[2020-10-23] MEDS ORDERED: K-DUR TAB 20 MEQ PO SCH (16:00)
[2020-10-23] MEDS: COREG TAB 12.5 MG PO SCH ×2 (17:45→21:28)
[2020-10-23] MEDS: ZESTRIL TAB 5 MG PO SCH (17:45)
[2020-10-23] MEDS ORDERED: NS 1/2 1000 ML IV 1,000 ML IV ONE (17:53)
[2020-10-23] MEDS ORDERED: SNACK - Diabetic Appropriate PO SCH (20:00)
[2020-10-23] MEDS: SNACK - Diabetic Appropriate PO SCH (21:19)
[2020-10-23] MEDS: ARTIFICIAL TEARS DROPS AFFEYE SCH (23:59)
[2020-10-24] MEDS: ASCORBIC ACID INJ MULTI-DOSE VIAL 1,500 MG in NS 100 ML IV 100 ML IV SCH ×4 (02:31→21:15)
[2020-10-24] MEDS: SOLU-Medrol 125 MG VIAL IVP SCH ×4 (05:31→21:30)
[2020-10-24] MEDS: NS 1/2 1000 ML IV 1,000 ML IV SCH ×2 (05:31→18:55)
[2020-10-24] MEDS: ZOSYN VIAL 3.375 GRAMS 3.375 G in NS 100 ML IV + SPIKE MINIBAG* 100 ML IV SCH ×5 (05:31→22:00)
[2020-10-24 06:20] LABS: ABG BASE EXCESS 6.4 mmol/L (-2.0-2.0)
[2020-10-24 06:21] LABS: BASOPHILS % (AUTO) 0.1 % (0.2-1.0); HEMATOCRIT 35.9 % (42.0-54.0); HEMOGLOBIN 12.3 g/dL (13.5-18.0); LYMPHOCYTES # (AUTO) 0.3 X10^3/uL (1.3-2.9); LYMPHOCYTES % (AUTO) 1.7 % (21.0-51.0); MEAN CORPUSCULAR HEMOGLOBIN 31.1 pg (27.0-34.0); MEAN CORPUSCULAR HGB CONC 34.1 g/dL (33.0-35.0); MEAN CORPUSCULAR VOLUME 91.3 fL (80.0-100.0); MEAN PLATELET VOLUME 7.7 fL (7.4-11.0); MONOCYTES # (AUTO) 0.9 x10^3/uL (0.3-0.8); NEUTROPHILS # (AUTO) 17.3 x10^3/uL (2.2-4.8); NEUTROPHILS % (AUTO) 93.2 % (42.0-75.0); PLATELET COUNT 265 X10^3/uL (150.0-450.0); RED BLOOD COUNT 3.94 X10^6/uL (4.7-6.0); RED CELL DISTRIBUTION WIDTH 13.6 % (11.6-16.5); WHITE BLOOD COUNT 18.5 X10^3/uL (3.6-10.0)
[2020-10-24 06:21] LABS: ABG ALLEN TEST POSS; ABG HCO3 30.5 mmol/L (22-26)
[2020-10-24 06:34] LABS: ALANINE AMINOTRANSFERASE 23 Units/L (12-78); ALBUMIN 2.3 g/dL (3.4-5.0); ALKALINE PHOSPHATASE 99 Units/L (46-116); ASPARTATE AMINO TRANSFERASE 33 Units/L (15-37); BLOOD UREA NITROGEN 42 mg/dL (7-18); CALCIUM 8.5 mg/dL (8.5-10.1); CARBON DIOXIDE 28.8 mmol/L (21-32); CHLORIDE 107 mmol/L (98-107); COR CA(FOR HYPOALB) 9.9 mg/dL (8.5-10.1); COR NA(FOR HYPERGLY) 152 mmol/L (136-145); CREATININE 1.39 mg/dL (0.70-1.30); SODIUM 146 mmol/L (136-145); TOTAL PROTEIN 6.6 g/dL (6.4-8.2); eGFR NON BLACK RACES 56 (>60)
--- NOTE | 2020-10-24 06:43 | RAD ---
HISTORYPneumonia SOBSTUDYAP [id number]/2021FINDINGSHeart size is unchanged, cardiac margins partly obscured by adjacent confluent airspace disease bilaterally. Subcutaneous emphysema and pneumomediastinum identified. No pneumothorax or large pleural effusion seen.IMPRESSIONStable extent and distribution of bilateral pulmonary densities/pneumonia. Extrapulmonary air identified in the subcutaneous tissues and mediastinum. No pneumothorax seen.Electronically signed by: KLEBER LONDON (Oct 24, 2020 06:41:25)
[2020-10-24 07:42] LABS: BAND NEUTROPHILS % 3 % (0-10); BASOPHILS % (MANUAL) 1 % (0-1); MYELOCYTES % 4; PLATELET MORPHOLOGY COMMENT NORMAL (NORMAL)
[2020-10-24] MEDS: HumuLIN R SUBCUT PRN ×4 (08:21→21:15)
[2020-10-24] MEDS: COREG TAB 12.5 MG PO SCH ×2 (08:42→21:15)
[2020-10-24] MEDS: LIPITOR TAB 80 MG PO SCH (08:43)
[2020-10-24] MEDS: LOVENOX INJ 30 MG SYR SC SCH ×2 (08:43→21:15)
[2020-10-24] MEDS: PEPCID TAB 40 MG PO SCH (08:44)
[2020-10-24] MEDS: PROTONIX INJ 40 MG VIAL IVP SCH ×3 (08:44→21:15)
[2020-10-24] MEDS: TRICOR TAB 160 MG PO SCH (08:45)
[2020-10-24] MEDS: ROBITUSSIN DM PO SCH ×4 (08:45→17:04)
[2020-10-24] MEDS: ZESTRIL TAB 5 MG PO SCH (08:46)
[2020-10-24] MEDS: VSL#3 PO SCH (08:46)
[2020-10-24] MEDS: VITAMIN D3 125 mcg (5,000 UNITS) PO SCH (08:46)
[2020-10-24] MEDS: ZITHROMAX INJ 500 MG VIAL 500 MG in NS 250 ML IV 250 ML IV SCH (08:47)
[2020-10-24] MEDS: ZINC SULFATE PO SCH ×2 (08:47→21:15)
[2020-10-24] MEDS ORDERED: LEVEMIR SC SCH (09:00)
[2020-10-24] MEDS: VITAMIN A PO SCH (09:09)
[2020-10-24] MEDS: DUONEB 0.5 MG/3 MG (3 mL) NEB SCH ×3 (09:15→20:00)
[2020-10-24] MEDS: K-DUR TAB 20 MEQ PO PRN (11:00)
--- NOTE | 2020-10-24 13:31 | RAD ---
EXAM: CHEST X-RAYHISTORY: Verification of PICC line position status post PICC placementTECHNIQUE: AP chest x-ray dated 10/24/2020 at 1:07 PM.COMPARISON: CXR dated 10/24/2020 at 4:53 AM.FINDINGS:Note: Exam degraded by shallow inspiratory effort.There is a new left upper extremity PICC line with the distal tip in the expected location of the SVC (adequate position). Recommend careful clinical correlation to ensure venous blood return.There is evidence for borderline cardiomegaly. There are diffuse bilateral lung infiltrates, consistent with moderate CHF or volume overload in the appropriate clinical setting; differential diagnosis includes (but is not limited to) acute pneumonia in the appropriate clinical setting.There is no gross focal lung consolidation, pleural effusion, or pneumothorax seen. The visualized bony structures are within normal limits.IMPRESSION:1. New left upper extremity PICC line with the distal tip in the expected location of the SVC (adequate position). Recommend careful clinical correlation to ensure venous blood return.2. Findings in keeping with moderate CHF or volume overload in the appropriate clinical setting; DDX includes (but is not limited to) severe acute pneumonia (e.g. Covid pneumonia) in the appropriate clinical setting.3. Recommend clinical correlation and appropriate follow evaluation to ensure interval clearance as clinically warranted.Electronically signed by: Concepcion Maxwell (Oct 24, 2020 13:30:02)
--- NOTE | 2020-10-24 13:37 | DR.UPDATE ---
H&P Update History and Physical Update: History and Physical reviewed and patient examined. Changes noted: NO Yes with the following:agree with H&P. Will place central line for poor iv access H&P Reviewed: Yes Patient was examined?: Yes Procedures (ALL) - Central Line Placement PCM.CLCO: written consent Time out performed: Yes Patient placed pm monitor/pulse ox: Yes MD prep: mask, gown, gloves, other Centrial line prep: chlorhexidine scrub, sterile drapes applied Local anesthsia used: lidocane 1% Ultrasound used for placement: Yes (left basilic id'd via u/s, cannulated under direct u/s vis.) Central line lumen ininserted: double (5.5fr arrow picc. 50cm cath, 3cm exposed) Post procedure: good blood return, all ports aspirated, flushed,capped, sterile dressing applied Post procedure xray: tip oc catheter in good position, no pneumothorax seen Patient tolerated procedure: Yes Complications: none
[2020-10-24] MEDS ORDERED: DUONEB 0.5 MG/3 MG (3 mL) NEB ONE (14:25)
[2020-10-24] MEDS: SNACK - Diabetic Appropriate PO SCH (20:00)
[2020-10-24] MEDS: ARTIFICIAL TEARS DROPS AFFEYE SCH (21:00)
[2020-10-25] MEDS: ROBITUSSIN DM PO SCH ×6 (00:21→22:32)
[2020-10-25] MEDS: ASCORBIC ACID INJ MULTI-DOSE VIAL 1,500 MG in NS 100 ML IV 100 ML IV SCH ×4 (02:48→22:34)
[2020-10-25] MEDS: DUONEB 0.5 MG/3 MG (3 mL) NEB SCH ×3 (05:00→20:50)
[2020-10-25] MEDS: SOLU-Medrol 125 MG VIAL IVP SCH ×3 (05:18→22:32)
[2020-10-25] MEDS: ZOSYN VIAL 3.375 GRAMS 3.375 G in NS 100 ML IV + SPIKE MINIBAG* 100 ML IV SCH ×3 (05:18→22:34)
[2020-10-25] MEDS: HumuLIN R SUBCUT PRN ×4 (05:58→22:33)
[2020-10-25 06:12] LABS: BASOPHILS % (AUTO) 0 % (0.2-1.0); HEMATOCRIT 36.1 % (42.0-54.0); HEMOGLOBIN 12.1 g/dL (13.5-18.0); LYMPHOCYTES # (AUTO) 0.3 X10^3/uL (1.3-2.9); LYMPHOCYTES % (AUTO) 1.8 % (21.0-51.0); MEAN CORPUSCULAR HGB CONC 33.6 g/dL (33.0-35.0); MEAN CORPUSCULAR VOLUME 92.5 fL (80.0-100.0); MONOCYTES # (AUTO) 0.8 x10^3/uL (0.3-0.8); MONOCYTES % (AUTO) 4.5 % (0.0-13.0); NEUTROPHILS # (AUTO) 16.5 x10^3/uL (2.2-4.8); NEUTROPHILS % (AUTO) 93.7 % (42.0-75.0); PLATELET COUNT 247 X10^3/uL (150.0-450.0); RED CELL DISTRIBUTION WIDTH 13.4 % (11.6-16.5); WHITE BLOOD COUNT 17.6 X10^3/uL (3.6-10.0)
[2020-10-25 06:13] LABS: ABG BASE EXCESS 8.2 mmol/L (-2.0-2.0)
[2020-10-25 06:15] LABS: ABG ALLEN TEST POSS; ABG HCO3 31.9 mmol/L (22-26)
[2020-10-25 06:20] LABS: ALANINE AMINOTRANSFERASE 25 Units/L (12-78); ALBUMIN 2.2 g/dL (3.4-5.0); ALKALINE PHOSPHATASE 93 Units/L (46-116); ASPARTATE AMINO TRANSFERASE 25 Units/L (15-37); BLOOD UREA NITROGEN 33 mg/dL (7-18); CALCIUM 8.3 mg/dL (8.5-10.1); CARBON DIOXIDE 29.7 mmol/L (21-32); CHLORIDE 107 mmol/L (98-107); COR CA(FOR HYPOALB) 9.7 mg/dL (8.5-10.1); COR NA(FOR HYPERGLY) 153 mmol/L (136-145); CREATININE 1.24 mg/dL (0.70-1.30); SODIUM 146 mmol/L (136-145); TOTAL PROTEIN 6.5 g/dL (6.4-8.2); eGFR NON BLACK RACES > 60 (>60)
--- NOTE | 2020-10-25 06:27 | RAD ---
HISTORYcovidSTUDYPortable AP [id number]/16/2021FINDINGSMild stable cardiac enlargement. Persistent bilateral airspace disease with slight interval improvement in aeration of the lungs. No complicating pneumothorax or large pleural effusion. Stable position of left PICC.IMPRESSIONStable cardiac enlargement with interval improvement in bilateral pneumonia/edema. No new abnormality demonstrated.Electronically signed by: KLEBER LONDON (Oct 25, 2020 06:25:30)
[2020-10-25] MEDS: NS 1/2 1000 ML IV 1,000 ML IV SCH (06:44)
[2020-10-25 06:46] LABS: PLATELET MORPHOLOGY COMMENT NORMAL (NORMAL)
[2020-10-25] MEDS: LIPITOR TAB 80 MG PO SCH (09:03)
[2020-10-25] MEDS: PROTONIX INJ 40 MG VIAL IVP SCH ×2 (09:05→22:34)
[2020-10-25] MEDS: LEVEMIR SC SCH (09:05)
[2020-10-25] MEDS: LOVENOX INJ 30 MG SYR SC SCH ×2 (09:05→22:33)
[2020-10-25] MEDS: ZESTRIL TAB 5 MG PO SCH (09:05)
[2020-10-25] MEDS: COREG TAB 12.5 MG PO SCH ×2 (09:05→22:34)
[2020-10-25] MEDS: PEPCID TAB 40 MG PO SCH (09:06)
[2020-10-25] MEDS: ZINC SULFATE PO SCH ×2 (09:06→22:32)
[2020-10-25] MEDS: TRICOR TAB 160 MG PO SCH (09:07)
[2020-10-25] MEDS: VITAMIN A PO SCH (09:07)
[2020-10-25] MEDS: VSL#3 PO SCH (09:08)
[2020-10-25] MEDS: VITAMIN D3 125 mcg (5,000 UNITS) PO SCH (09:08)
[2020-10-25] MEDS: ZITHROMAX INJ 500 MG VIAL 500 MG in NS 250 ML IV 250 ML IV SCH (09:12)
[2020-10-25] MEDS ORDERED: APRESOLINE INJ 20 MG VIAL IVP ONE (09:39)
[2020-10-25] MEDS ORDERED: APRESOLINE INJ 20 MG VIAL ONE (09:46)
[2020-10-25] MEDS ORDERED: BENADRYL INJ 50 MG VIAL IVP ONE (09:49)
[2020-10-25] MEDS ORDERED: LASIX IVP SCH (10:00)
[2020-10-25] MEDS ORDERED: NYSTATIN POWDER ONE (10:44)
[2020-10-25 10:47] LABS: ABG BASE EXCESS 8.1 mmol/L (-2.0-2.0)
[2020-10-25] MEDS ORDERED: NS 100 ML IV 100 ML IV ONE (14:03)
[2020-10-25] MEDS: NYSTATIN POWDER TOP SCH (22:00)
[2020-10-25] MEDS: SNACK - Diabetic Appropriate PO SCH (22:31)
[2020-10-25] MEDS: ARTIFICIAL TEARS DROPS AFFEYE SCH (22:31)
[2020-10-26] MEDS: NS 1/2 1000 ML IV 1,000 ML IV SCH ×2 (00:07→22:39)
[2020-10-26] MEDS: ASCORBIC ACID INJ MULTI-DOSE VIAL 1,500 MG in NS 100 ML IV 100 ML IV SCH ×4 (02:30→21:24)
[2020-10-26 04:19] LABS: ABG BASE EXCESS 13.2 mmol/L (-2.0-2.0)
[2020-10-26 04:21] LABS: ABG ALLEN TEST POS; ABG HCO3 36.7 mmol/L (22-26)
[2020-10-26] MEDS: DUONEB 0.5 MG/3 MG (3 mL) NEB SCH ×3 (05:20→20:20)
[2020-10-26] MEDS: SOLU-Medrol 125 MG VIAL IVP SCH ×3 (06:18→21:24)
[2020-10-26] MEDS: HumuLIN R SUBCUT PRN ×4 (06:18→21:31)
[2020-10-26] MEDS: ZOSYN VIAL 3.375 GRAMS 3.375 G in NS 100 ML IV + SPIKE MINIBAG* 100 ML IV SCH ×3 (06:18→21:24)
[2020-10-26 06:29] LABS: ALANINE AMINOTRANSFERASE 21 Units/L (12-78); ALBUMIN 2.2 g/dL (3.4-5.0); ALKALINE PHOSPHATASE 97 Units/L (46-116); ASPARTATE AMINO TRANSFERASE 26 Units/L (15-37); BLOOD UREA NITROGEN 31 mg/dL (7-18); CALCIUM 8.3 mg/dL (8.5-10.1); CARBON DIOXIDE 30.5 mmol/L (21-32); CHLORIDE 106 mmol/L (98-107); COR CA(FOR HYPOALB) 9.7 mg/dL (8.5-10.1); COR NA(FOR HYPERGLY) 150 mmol/L (136-145); CREATININE 1.25 mg/dL (0.70-1.30); SODIUM 146 mmol/L (136-145); TOTAL PROTEIN 6.4 g/dL (6.4-8.2); eGFR NON BLACK RACES > 60 (>60)
--- NOTE | 2020-10-26 07:00 | RAD ---
HISTORYPNEUMONIA, COVID+STUDYCHEST, 1 VIEWCOMPARISONOne day prior.TECHNIQUEAP view of the chestFINDINGSThe cardiac silhouette is stably enlarged. Mediastinal contours appear stable. Left upper extremity PICC line in good position. No significant change in hazy bilateral lung opacities. No large pleural effusion. No pneumothorax.IMPRESSIONNo significant change.Electronically signed by: David Ladd (Oct 26, 2020 06:58:58)
[2020-10-26 07:23] LABS: BASOPHILS # (AUTO) 0.1 X10^3/uL (0.0-0.1); BASOPHILS % (AUTO) 0.5 % (0.2-1.0); HEMOGLOBIN 12.5 g/dL (13.5-18.0); LYMPHOCYTES # (AUTO) 0.3 X10^3/uL (1.3-2.9); LYMPHOCYTES % (AUTO) 1.4 % (21.0-51.0); MEAN CORPUSCULAR HEMOGLOBIN 30.5 pg (27.0-34.0); MEAN CORPUSCULAR HGB CONC 32.8 g/dL (33.0-35.0); MEAN PLATELET VOLUME 8.6 fL (7.4-11.0); MONOCYTES # (AUTO) 0.5 x10^3/uL (0.3-0.8); MONOCYTES % (AUTO) 2.7 % (0.0-13.0); NEUTROPHILS # (AUTO) 18.4 x10^3/uL (2.2-4.8); NEUTROPHILS % (AUTO) 95.4 % (42.0-75.0); PLATELET COUNT 256 X10^3/uL (150.0-450.0); RED BLOOD COUNT 4.08 X10^6/uL (4.7-6.0); RED CELL DISTRIBUTION WIDTH 13.5 % (11.6-16.5); WHITE BLOOD COUNT 19.3 X10^3/uL (3.6-10.0)
[2020-10-26 08:00] LABS: PLATELET MORPHOLOGY COMMENT NORMAL (NORMAL)
[2020-10-26] MEDS: LIPITOR TAB 80 MG PO SCH (08:03)
[2020-10-26] MEDS: LOVENOX INJ 30 MG SYR SC SCH ×2 (08:03→21:24)
[2020-10-26] MEDS: COREG TAB 12.5 MG PO SCH ×2 (08:03→21:24)
[2020-10-26] MEDS: NYSTATIN POWDER TOP SCH ×2 (08:04→21:30)
[2020-10-26] MEDS: PROTONIX INJ 40 MG VIAL IVP SCH ×2 (08:04→21:25)
[2020-10-26] MEDS: PEPCID TAB 40 MG PO SCH (08:04)
[2020-10-26] MEDS: VITAMIN D3 125 mcg (5,000 UNITS) PO SCH (08:05)
[2020-10-26] MEDS: TRICOR TAB 160 MG PO SCH (08:05)
[2020-10-26] MEDS: VITAMIN A PO SCH (08:05)
[2020-10-26] MEDS: ZINC SULFATE PO SCH ×2 (08:06→21:25)
[2020-10-26] MEDS: VSL#3 PO SCH (08:06)
[2020-10-26] MEDS: ZESTRIL TAB 5 MG PO SCH (08:06)
[2020-10-26] MEDS: ZITHROMAX INJ 500 MG VIAL 500 MG in NS 250 ML IV 250 ML IV SCH (08:06)
[2020-10-26] MEDS: LEVEMIR SC SCH (09:48)
[2020-10-26] MEDS: ROBITUSSIN DM PO SCH ×4 (10:41→21:31)
[2020-10-26] MEDS ORDERED: K-DUR TAB 20 MEQ PO SCH (14:00)
[2020-10-26 14:26] LABS: ABG BASE EXCESS 11.5 mmol/L (-2.0-2.0)
[2020-10-26 14:28] LABS: ABG ALLEN TEST POS; ABG HCO3 35.9 mmol/L (22-26)
[2020-10-26] MEDS ORDERED: LEXAPRO ONE (14:29)
[2020-10-26] MEDS: LEXAPRO PO SCH (14:38)
[2020-10-26] MEDS: LASIX IVP SCH (14:38)
[2020-10-26] MEDS: DIFLUCAN 200 MG IV PREMIX* 200 MG/100 ML BAG IV SCH (14:51)
[2020-10-26] MEDS ORDERED: DIFLUCAN 100 MG IV (MIX by PHARMACY)* 100 MG/50 ML BAG IV SCH (15:00)
[2020-10-26] MEDS: SNACK - Diabetic Appropriate PO SCH (21:23)
[2020-10-26] MEDS: ARTIFICIAL TEARS DROPS AFFEYE SCH (21:23)
[2020-10-27] MEDS: NS 1/2 1000 ML IV 1,000 ML IV SCH ×2 (00:52→14:28)
[2020-10-27] MEDS: K-DUR TAB 20 MEQ PO PRN (01:01)
[2020-10-27] MEDS: ASCORBIC ACID INJ MULTI-DOSE VIAL 1,500 MG in NS 100 ML IV 100 ML IV SCH ×4 (02:31→21:26)
[2020-10-27 04:48] LABS: ABG ALLEN TEST POS; ABG BASE EXCESS 13.5 mmol/L (-2.0-2.0); ABG HCO3 37.6 mmol/L (22-26)
[2020-10-27] MEDS: ZOSYN VIAL 3.375 GRAMS 3.375 G in NS 100 ML IV + SPIKE MINIBAG* 100 ML IV SCH ×3 (05:50→22:10)
[2020-10-27] MEDS: SOLU-Medrol 125 MG VIAL IVP SCH ×3 (05:50→21:24)
[2020-10-27 05:53] LABS: BASOPHILS # (AUTO) 0.1 X10^3/uL (0.0-0.1); BASOPHILS % (AUTO) 0.3 % (0.2-1.0); HEMATOCRIT 38.2 % (42.0-54.0); HEMOGLOBIN 12.8 g/dL (13.5-18.0); LYMPHOCYTES # (AUTO) 0.4 X10^3/uL (1.3-2.9); LYMPHOCYTES % (AUTO) 1.9 % (21.0-51.0); MEAN CORPUSCULAR HEMOGLOBIN 30.6 pg (27.0-34.0); MEAN CORPUSCULAR HGB CONC 33.5 g/dL (33.0-35.0); MEAN CORPUSCULAR VOLUME 91.4 fL (80.0-100.0); MEAN PLATELET VOLUME 8.3 fL (7.4-11.0); MONOCYTES % (AUTO) 4.5 % (0.0-13.0); NEUTROPHILS % (AUTO) 93.3 % (42.0-75.0); PLATELET COUNT 244 X10^3/uL (150.0-450.0); RED BLOOD COUNT 4.17 X10^6/uL (4.7-6.0); RED CELL DISTRIBUTION WIDTH 13.4 % (11.6-16.5); WHITE BLOOD COUNT 21.5 X10^3/uL (3.6-10.0)
[2020-10-27 05:56] LABS: ALANINE AMINOTRANSFERASE 22 Units/L (12-78); ALBUMIN 2.1 g/dL (3.4-5.0); ALKALINE PHOSPHATASE 93 Units/L (46-116); ASPARTATE AMINO TRANSFERASE 25 Units/L (15-37); BLOOD UREA NITROGEN 28 mg/dL (7-18); CALCIUM 8.2 mg/dL (8.5-10.1); CARBON DIOXIDE 31.5 mmol/L (21-32); CHLORIDE 106 mmol/L (98-107); COR CA(FOR HYPOALB) 9.7 mg/dL (8.5-10.1); COR NA(FOR HYPERGLY) 148 mmol/L (136-145); CREATININE 1.12 mg/dL (0.70-1.30); SODIUM 145 mmol/L (136-145); TOTAL PROTEIN 6.2 g/dL (6.4-8.2); eGFR NON BLACK RACES > 60 (>60)
--- NOTE | 2020-10-27 06:15 | RAD ---
HISTORYPNEUMONIA, COVID+STUDYCHEST, 1 VIEWCOMPARISONOne day prior.TECHNIQUEAP view of the chestFINLif[facility] in good position. The cardiac silhouette is stably enlarged. Mediastinal contours appear stable. No significant change in bilateral airspace and interstitial opacities. No large pleural effusion. No pneumothorax. Soft tissue attenuation limits evaluation.IMPRESSIONNo significant change.Electronically signed by: David Ladd (Oct 27, 2020 06:14:37)
[2020-10-27] MEDS ORDERED: MORPHINE SULFATE INJ 2 MG INJ IVP ONE (06:33)
[2020-10-27] MEDS ORDERED: MORPHINE SULFATE INJ 2 MG INJ ONE (06:36)
[2020-10-27 06:53] LABS: PLATELET MORPHOLOGY COMMENT NORMAL (NORMAL)
[2020-10-27] MEDS ORDERED: LEXAPRO ONE (07:59)
[2020-10-27] MEDS: COREG TAB 12.5 MG PO SCH ×2 (08:26→21:26)
[2020-10-27] MEDS: VSL#3 PO SCH (08:27)
[2020-10-27] MEDS: ZINC SULFATE PO SCH ×2 (08:27→21:25)
[2020-10-27] MEDS: ZESTRIL TAB 5 MG PO SCH (08:27)
[2020-10-27] MEDS: VITAMIN D3 125 mcg (5,000 UNITS) PO SCH (08:27)
[2020-10-27] MEDS: TRICOR TAB 160 MG PO SCH (08:28)
[2020-10-27] MEDS: LASIX IVP SCH (08:28)
[2020-10-27] MEDS: ROBITUSSIN DM PO SCH ×4 (08:28→21:23)
[2020-10-27] MEDS: LEXAPRO PO SCH (08:28)
[2020-10-27] MEDS: PEPCID TAB 40 MG PO SCH (08:28)
[2020-10-27] MEDS: LIPITOR TAB 80 MG PO SCH (08:28)
[2020-10-27] MEDS: VITAMIN A PO SCH (08:28)
[2020-10-27] MEDS: DIFLUCAN 200 MG IV PREMIX* 200 MG/100 ML BAG IV SCH (09:31)
[2020-10-27] MEDS: LOVENOX INJ 30 MG SYR SC SCH ×2 (09:31→22:09)
[2020-10-27] MEDS: PROTONIX INJ 40 MG VIAL IVP SCH ×2 (09:31→21:25)
[2020-10-27] MEDS: LEVEMIR SC SCH (09:31)
[2020-10-27] MEDS: ZITHROMAX INJ 500 MG VIAL 500 MG in NS 250 ML IV 250 ML IV SCH (10:30)
[2020-10-27] MEDS ORDERED: NS 100 ML IV 100 ML IV ONE (10:38)
[2020-10-27] MEDS: NYSTATIN POWDER TOP SCH ×2 (10:48→22:10)
[2020-10-27] MEDS: DUONEB 0.5 MG/3 MG (3 mL) NEB SCH ×2 (14:05→21:58)
[2020-10-27] MEDS: HumuLIN R SUBCUT PRN ×2 (17:15→22:11)
[2020-10-27] MEDS ORDERED: BUTT CREAM (COMPOUND) ONE (20:24)
[2020-10-27] MEDS: SNACK - Diabetic Appropriate PO SCH (21:22)
[2020-10-27] MEDS: BUTT CREAM (COMPOUND) TOP PRN (21:24)
[2020-10-27] MEDS: ARTIFICIAL TEARS DROPS AFFEYE SCH (21:26)
[2020-10-28] MEDS ORDERED: NS 1/2 1000 ML IV 1,000 ML IV ONE ×2 (01:54→08:09)
[2020-10-28] MEDS: ASCORBIC ACID INJ MULTI-DOSE VIAL 1,500 MG in NS 100 ML IV 100 ML IV SCH ×4 (02:38→21:47)
[2020-10-28 05:02] LABS: ABG BASE EXCESS 13.8 mmol/L (-2.0-2.0)
[2020-10-28 05:05] LABS: ABG ALLEN TEST POS; ABG HCO3 39.5 mmol/L (22-26)
[2020-10-28] MEDS: ZOSYN VIAL 3.375 GRAMS 3.375 G in NS 100 ML IV + SPIKE MINIBAG* 100 ML IV SCH ×3 (05:16→21:48)
[2020-10-28] MEDS: SOLU-Medrol 125 MG VIAL IVP SCH ×3 (05:16→21:48)
[2020-10-28] MEDS: DUONEB 0.5 MG/3 MG (3 mL) NEB SCH ×3 (05:25→22:32)
[2020-10-28] MEDS: HumuLIN R SUBCUT PRN ×4 (05:43→22:10)
[2020-10-28 06:33] LABS: ALANINE AMINOTRANSFERASE 21 Units/L (12-78); ALBUMIN 2.2 g/dL (3.4-5.0); ALKALINE PHOSPHATASE 92 Units/L (46-116); ASPARTATE AMINO TRANSFERASE 22 Units/L (15-37); BLOOD UREA NITROGEN 33 mg/dL (7-18); CALCIUM 8.4 mg/dL (8.5-10.1); CARBON DIOXIDE 32.4 mmol/L (21-32); CHLORIDE 105 mmol/L (98-107); COR CA(FOR HYPOALB) 9.8 mg/dL (8.5-10.1); COR NA(FOR HYPERGLY) 151 mmol/L (136-145); CREATININE 1.16 mg/dL (0.70-1.30); SODIUM 147 mmol/L (136-145); TOTAL PROTEIN 6.3 g/dL (6.4-8.2); eGFR NON BLACK RACES > 60 (>60)
[2020-10-28 06:40] LABS: BASOPHILS % (AUTO) 0.2 % (0.2-1.0); HEMOGLOBIN 12.8 g/dL (13.5-18.0); LYMPHOCYTES # (AUTO) 0.2 X10^3/uL (1.3-2.9); LYMPHOCYTES % (AUTO) 1.3 % (21.0-51.0); MEAN CORPUSCULAR HEMOGLOBIN 30.4 pg (27.0-34.0); MEAN CORPUSCULAR HGB CONC 32.9 g/dL (33.0-35.0); MEAN CORPUSCULAR VOLUME 92.3 fL (80.0-100.0); MEAN PLATELET VOLUME 8.8 fL (7.4-11.0); MONOCYTES # (AUTO) 0.4 x10^3/uL (0.3-0.8); MONOCYTES % (AUTO) 2.1 % (0.0-13.0); NEUTROPHILS # (AUTO) 18.5 x10^3/uL (2.2-4.8); NEUTROPHILS % (AUTO) 96.4 % (42.0-75.0); PLATELET COUNT 255 X10^3/uL (150.0-450.0); RED BLOOD COUNT 4.22 X10^6/uL (4.7-6.0); RED CELL DISTRIBUTION WIDTH 13.4 % (11.6-16.5); WHITE BLOOD COUNT 19.2 X10^3/uL (3.6-10.0)
[2020-10-28 07:31] LABS: PLATELET MORPHOLOGY COMMENT NORMAL (NORMAL)
[2020-10-28] MEDS ORDERED: LEXAPRO ONE (08:07)
[2020-10-28] MEDS: DIFLUCAN 200 MG IV PREMIX* 200 MG/100 ML BAG IV SCH (08:20)
[2020-10-28] MEDS: LASIX IVP SCH (08:22)
[2020-10-28] MEDS: LEVEMIR SC SCH (08:24)
[2020-10-28] MEDS: COREG TAB 12.5 MG PO SCH ×2 (08:25→21:51)
[2020-10-28] MEDS: VSL#3 PO SCH (08:26)
[2020-10-28] MEDS: LEXAPRO PO SCH (08:27)
[2020-10-28] MEDS: LIPITOR TAB 80 MG PO SCH (08:27)
[2020-10-28] MEDS: LOVENOX INJ 30 MG SYR SC SCH ×2 (08:27→21:51)
[2020-10-28] MEDS: PEPCID TAB 40 MG PO SCH (08:28)
[2020-10-28] MEDS: NYSTATIN POWDER TOP SCH ×2 (08:28→21:49)
[2020-10-28] MEDS: ROBITUSSIN DM PO SCH ×5 (08:29→21:48)
[2020-10-28] MEDS: PROTONIX INJ 40 MG VIAL IVP SCH ×2 (08:29→21:49)
[2020-10-28] MEDS: TRICOR TAB 160 MG PO SCH (08:29)
[2020-10-28] MEDS: VITAMIN D3 125 mcg (5,000 UNITS) PO SCH (08:30)
[2020-10-28] MEDS: VITAMIN A PO SCH (08:30)
[2020-10-28] MEDS: ZINC SULFATE PO SCH ×2 (08:30→21:48)
[2020-10-28] MEDS: ZESTRIL TAB 5 MG PO SCH (08:31)
[2020-10-28] MEDS: ZITHROMAX INJ 500 MG VIAL 500 MG in NS 250 ML IV 250 ML IV SCH (08:31)
[2020-10-28] MEDS ORDERED: IMODIUM CAP 2 MG PO PRN (13:54)
[2020-10-28] MEDS: SNACK - Diabetic Appropriate PO SCH (21:49)
[2020-10-28] MEDS: K-DUR TAB 20 MEQ PO PRN (21:50)
[2020-10-28] MEDS: ARTIFICIAL TEARS DROPS AFFEYE SCH (21:51)
[2020-10-28] MEDS: NS 1/2 1000 ML IV 1,000 ML IV SCH ×2 (21:52→21:53)
[2020-10-29] MEDS ORDERED: NS 100 ML IV 100 ML IV ONE (02:22)
[2020-10-29] MEDS: ASCORBIC ACID INJ MULTI-DOSE VIAL 1,500 MG in NS 100 ML IV 100 ML IV SCH ×4 (02:42→21:45)
[2020-10-29 06:09] LABS: BASOPHILS % (AUTO) 0 % (0.2-1.0); HEMOGLOBIN 12.9 g/dL (13.5-18.0); LYMPHOCYTES # (AUTO) 0.3 X10^3/uL (1.3-2.9); LYMPHOCYTES % (AUTO) 1.5 % (21.0-51.0); MEAN CORPUSCULAR HEMOGLOBIN 30.8 pg (27.0-34.0); MEAN CORPUSCULAR HGB CONC 33.9 g/dL (33.0-35.0); MEAN CORPUSCULAR VOLUME 91.1 fL (80.0-100.0); MEAN PLATELET VOLUME 8.6 fL (7.4-11.0); MONOCYTES # (AUTO) 0.6 x10^3/uL (0.3-0.8); MONOCYTES % (AUTO) 3.3 % (0.0-13.0); NEUTROPHILS # (AUTO) 17.6 x10^3/uL (2.2-4.8); NEUTROPHILS % (AUTO) 95.2 % (42.0-75.0); PLATELET COUNT 221 X10^3/uL (150.0-450.0); RED BLOOD COUNT 4.18 X10^6/uL (4.7-6.0); RED CELL DISTRIBUTION WIDTH 13.4 % (11.6-16.5); WHITE BLOOD COUNT 18.5 X10^3/uL (3.6-10.0)
[2020-10-29 06:24] LABS: ALANINE AMINOTRANSFERASE 20 Units/L (12-78); ALBUMIN 2.1 g/dL (3.4-5.0); ALKALINE PHOSPHATASE 89 Units/L (46-116); ASPARTATE AMINO TRANSFERASE 18 Units/L (15-37); BLOOD UREA NITROGEN 31 mg/dL (7-18); CALCIUM 8.2 mg/dL (8.5-10.1); CARBON DIOXIDE 36.1 mmol/L (21-32); CHLORIDE 103 mmol/L (98-107); COR CA(FOR HYPOALB) 9.7 mg/dL (8.5-10.1); COR NA(FOR HYPERGLY) 148 mmol/L (136-145); CREATININE 1.08 mg/dL (0.70-1.30); SODIUM 145 mmol/L (136-145); eGFR NON BLACK RACES > 60 (>60)
--- NOTE | 2020-10-29 06:25 | RAD ---
HISTORYCOVID+; F/USTUDYCHEST, 1 [id number]/19/2021TECHNIQUEAP view of the chestFINGe[facility] P[facility] line in good position. The cardiac silhouette is stably enlarged. Mediastinal contours appear stable. No significant change in bilateral airspace and interstitial opacities. No large pleural effusion. No pneumothorax. Soft tissue attenuation limits evaluation.IMPRESSIONNo significant change.Electronically signed by: David Ladd (Oct 29, 2020 06:23:54)
[2020-10-29] MEDS: DUONEB 0.5 MG/3 MG (3 mL) NEB SCH ×3 (06:30→20:05)
[2020-10-29] MEDS: SOLU-Medrol 125 MG VIAL IVP SCH ×3 (06:44→21:45)
[2020-10-29] MEDS: ZOSYN VIAL 3.375 GRAMS 3.375 G in NS 100 ML IV + SPIKE MINIBAG* 100 ML IV SCH (06:44)
[2020-10-29] MEDS: NS 1/2 1000 ML IV 1,000 ML IV SCH ×2 (06:45→17:41)
[2020-10-29] MEDS: HumuLIN R SUBCUT PRN ×3 (07:00→22:30)
[2020-10-29 07:17] LABS: BAND NEUTROPHILS % 1 % (0-10); PLATELET MORPHOLOGY COMMENT NORMAL (NORMAL)
[2020-10-29 07:17] LABS: ABG BASE EXCESS 16.4 mmol/L (-2.0-2.0)
[2020-10-29 07:20] LABS: ABG ALLEN TEST POS; ABG HCO3 41.6 mmol/L (22-26)
[2020-10-29] MEDS ORDERED: LEXAPRO ONE (09:23)
[2020-10-29] MEDS: DIFLUCAN 200 MG IV PREMIX* 200 MG/100 ML BAG IV SCH (09:32)
[2020-10-29] MEDS: COREG TAB 12.5 MG PO SCH ×2 (09:32→21:45)
[2020-10-29] MEDS: LEVEMIR SC SCH (09:33)
[2020-10-29] MEDS: LASIX IVP SCH (09:33)
[2020-10-29] MEDS: LEXAPRO PO SCH (09:34)
[2020-10-29] MEDS: LOVENOX INJ 30 MG SYR SC SCH ×2 (09:35→21:45)
[2020-10-29] MEDS: LIPITOR TAB 80 MG PO SCH (09:35)
[2020-10-29] MEDS: NYSTATIN POWDER TOP SCH ×2 (09:35→21:45)
[2020-10-29] MEDS: TRICOR TAB 160 MG PO SCH (09:36)
[2020-10-29] MEDS: VITAMIN D3 125 mcg (5,000 UNITS) PO SCH (09:36)
[2020-10-29] MEDS: PEPCID TAB 40 MG PO SCH (09:36)
[2020-10-29] MEDS: PROTONIX INJ 40 MG VIAL IVP SCH ×2 (09:36→21:45)
[2020-10-29] MEDS: VITAMIN A PO SCH (09:37)
[2020-10-29] MEDS: VSL#3 PO SCH (09:37)
[2020-10-29] MEDS: ZESTRIL TAB 5 MG PO SCH (09:37)
[2020-10-29] MEDS: ROBITUSSIN DM PO SCH ×5 (09:37→23:32)
[2020-10-29] MEDS: ZINC SULFATE PO SCH ×2 (09:38→21:45)
[2020-10-29] MEDS: ZITHROMAX INJ 500 MG VIAL 500 MG in NS 250 ML IV 250 ML IV SCH (09:38)
[2020-10-29] MEDS ORDERED: LANTISEPTIC TOP PRN (16:34)
[2020-10-29] MEDS: K-DUR TAB 20 MEQ PO PRN ×2 (17:00→17:43)
[2020-10-29] MEDS: ARTIFICIAL TEARS DROPS AFFEYE SCH (21:45)
[2020-10-29] MEDS: SNACK - Diabetic Appropriate PO SCH ×2 (21:45→23:36)
[2020-10-30] MEDS: ASCORBIC ACID INJ MULTI-DOSE VIAL 1,500 MG in NS 100 ML IV 100 ML IV SCH ×4 (03:00→20:31)
[2020-10-30] MEDS: DUONEB 0.5 MG/3 MG (3 mL) NEB SCH ×3 (05:31→20:45)
[2020-10-30 06:21] LABS: ALANINE AMINOTRANSFERASE 19 Units/L (12-78); ALBUMIN 2.1 g/dL (3.4-5.0); ALKALINE PHOSPHATASE 87 Units/L (46-116); ASPARTATE AMINO TRANSFERASE 18 Units/L (15-37); BLOOD UREA NITROGEN 32 mg/dL (7-18); CALCIUM 8.2 mg/dL (8.5-10.1); CARBON DIOXIDE 37.8 mmol/L (21-32); CHLORIDE 104 mmol/L (98-107); COR CA(FOR HYPOALB) 9.7 mg/dL (8.5-10.1); COR NA(FOR HYPERGLY) 148 mmol/L (136-145); CREATININE 1.09 mg/dL (0.70-1.30); SODIUM 145 mmol/L (136-145); TOTAL PROTEIN 5.8 g/dL (6.4-8.2); eGFR NON BLACK RACES > 60 (>60)
[2020-10-30 06:36] LABS: BASOPHILS # (AUTO) 0.1 X10^3/uL (0.0-0.1); BASOPHILS % (AUTO) 0.3 % (0.2-1.0); HEMATOCRIT 38.4 % (42.0-54.0); HEMOGLOBIN 12.7 g/dL (13.5-18.0); LYMPHOCYTES # (AUTO) 0.3 X10^3/uL (1.3-2.9); LYMPHOCYTES % (AUTO) 1.4 % (21.0-51.0); MEAN CORPUSCULAR HEMOGLOBIN 30.2 pg (27.0-34.0); MEAN CORPUSCULAR HGB CONC 33.1 g/dL (33.0-35.0); MEAN CORPUSCULAR VOLUME 91.3 fL (80.0-100.0); MEAN PLATELET VOLUME 8.8 fL (7.4-11.0); MONOCYTES # (AUTO) 0.4 x10^3/uL (0.3-0.8); MONOCYTES % (AUTO) 2.4 % (0.0-13.0); NEUTROPHILS # (AUTO) 17.7 x10^3/uL (2.2-4.8); NEUTROPHILS % (AUTO) 95.9 % (42.0-75.0); PLATELET COUNT 255 X10^3/uL (150.0-450.0); RED CELL DISTRIBUTION WIDTH 13.1 % (11.6-16.5); WHITE BLOOD COUNT 18.4 X10^3/uL (3.6-10.0)
[2020-10-30 06:37] LABS: BAND NEUTROPHILS % 2 % (0-10); PLATELET MORPHOLOGY COMMENT NORMAL (NORMAL)
[2020-10-30] MEDS: SOLU-Medrol 125 MG VIAL IVP SCH ×3 (06:41→22:11)
[2020-10-30] MEDS: NS 1/2 1000 ML IV 1,000 ML IV SCH ×3 (07:21→20:30)
[2020-10-30] MEDS ORDERED: LEXAPRO ONE (07:35)
[2020-10-30] MEDS: LASIX IVP SCH (08:15)
[2020-10-30] MEDS: COREG TAB 12.5 MG PO SCH ×2 (09:07→20:51)
[2020-10-30] MEDS: LEVEMIR SC SCH (09:08)
[2020-10-30] MEDS: LOVENOX INJ 30 MG SYR SC SCH ×2 (09:09→20:28)
[2020-10-30] MEDS: LEXAPRO PO SCH (09:09)
[2020-10-30] MEDS: LIPITOR TAB 80 MG PO SCH (09:09)
[2020-10-30] MEDS: NYSTATIN POWDER TOP SCH ×2 (09:09→21:47)
[2020-10-30] MEDS: PROTONIX INJ 40 MG VIAL IVP SCH ×2 (09:10→20:33)
[2020-10-30] MEDS: VITAMIN D3 125 mcg (5,000 UNITS) PO SCH (09:10)
[2020-10-30] MEDS: ROBITUSSIN DM PO SCH ×4 (09:10→21:48)
[2020-10-30] MEDS: VITAMIN A PO SCH (09:10)
[2020-10-30] MEDS: PEPCID TAB 40 MG PO SCH (09:10)
[2020-10-30] MEDS: TRICOR TAB 160 MG PO SCH (09:10)
[2020-10-30] MEDS: ZESTRIL TAB 5 MG PO SCH (09:11)
[2020-10-30] MEDS: VSL#3 PO SCH (09:11)
[2020-10-30] MEDS: ZINC SULFATE PO SCH ×2 (09:11→20:51)
[2020-10-30 09:58] LABS: ABG BASE EXCESS 18.1 mmol/L (-2.0-2.0)
[2020-10-30 09:59] LABS: ABG ALLEN TEST POS; ABG HCO3 42.9 mmol/L (22-26)
[2020-10-30] MEDS: DIFLUCAN 200 MG IV PREMIX* 200 MG/100 ML BAG IV SCH (10:02)
[2020-10-30] MEDS: ZITHROMAX INJ 500 MG VIAL 500 MG in NS 250 ML IV 250 ML IV SCH (11:55)
[2020-10-30] MEDS: HumuLIN R SUBCUT PRN ×3 (12:02→21:10)
[2020-10-30] MEDS ORDERED: NS 100 ML IV 100 ML IV ONE (14:52)
--- NOTE | 2020-10-30 16:35 | CT ---
HISTORYCOVID PNEUMONIA, HYPOXIASTUDYCTA CHESTCOMPARISONNone availableTECHNIQUECT scan was performed following ALARA (As low as Reasonably Achievable).Coronal and Sagittal reformatted images were performed.. Pulmonary angiogram protocol was performed after the administration of contrast. 3D MIPS images were performed.FINDINGSThe thyroid gland is no significant enlarged. There is no axillary or mediastinal adenopathy. There is atrace pericardial effusion, no pleural effusions. There is a right lateral limb adrenal nodule measuring 1.8 by 1.5 centimeters with Hounsfield units less than 10 probably an adenoma. The left adrenal gland is unremarkable, there is no gallstones, the stomach is not distended, the pancreas demonstrate no focal abnormalities, there is no ascites in the included images. No significant mediastinal or axillary adenopathyThere is no evidence of pulmonary embolism, no focal filling defects are seen despite motion artifactLung windows there is severe ground-glass and alveolar radiopacities involving the entire lower lobes and patchy ground-glass radiopacities in the upper lobes there is some air bronchogram in the bases as well as in the right middle lobe and lingula.. There is pneumomediastinum surrounding the left heart border and at the anterior mediastinum.Bone windows there is no evidence of acute fractures multiple anterior bridging osteophytes.The ascending aorta measures 3.8 by 3.9 centimeters. AndIMPRESSIONNo evidence of central pulmonary edema. Pneumomediastinum. no pneumothoraxSevere confluent ground-glass and alveolar radiopacities with air bronchograms in the bases and in the middle lobes and ground-glass radiopacities in the upper lobes.Electronically signed by: Colette Fofana (Oct 30, 2020 16:33:42)
[2020-10-30] MEDS: SNACK - Diabetic Appropriate PO SCH (20:03)
[2020-10-30] MEDS: ARTIFICIAL TEARS DROPS AFFEYE SCH (20:36)
[2020-10-31] MEDS: BUTT CREAM (COMPOUND) TOP PRN
[2020-10-31] MEDS: ASCORBIC ACID INJ MULTI-DOSE VIAL 1,500 MG in NS 100 ML IV 100 ML IV SCH ×4 (02:47→21:36)
[2020-10-31] MEDS: APRESOLINE INJ 20 MG VIAL IVP PRN (04:17)
[2020-10-31] MEDS: SOLU-Medrol 125 MG VIAL IVP SCH ×3 (05:26→21:38)
[2020-10-31] MEDS: NS 1/2 1000 ML IV 1,000 ML IV SCH ×2 (05:31→21:34)
[2020-10-31] MEDS: HumuLIN R SUBCUT PRN ×4 (05:43→21:00)
[2020-10-31 05:46] LABS: BASOPHILS % (AUTO) 0.1 % (0.2-1.0); HEMATOCRIT 38.1 % (42.0-54.0); HEMOGLOBIN 12.6 g/dL (13.5-18.0); LYMPHOCYTES # (AUTO) 0.3 X10^3/uL (1.3-2.9); LYMPHOCYTES % (AUTO) 1.4 % (21.0-51.0); MEAN CORPUSCULAR HEMOGLOBIN 30.6 pg (27.0-34.0); MEAN CORPUSCULAR HGB CONC 33.1 g/dL (33.0-35.0); MEAN CORPUSCULAR VOLUME 92.6 fL (80.0-100.0); MEAN PLATELET VOLUME 8.9 fL (7.4-11.0); MONOCYTES # (AUTO) 0.6 x10^3/uL (0.3-0.8); MONOCYTES % (AUTO) 3.1 % (0.0-13.0); NEUTROPHILS # (AUTO) 18.1 x10^3/uL (2.2-4.8); NEUTROPHILS % (AUTO) 95.4 % (42.0-75.0); PLATELET COUNT 246 X10^3/uL (150.0-450.0); RED BLOOD COUNT 4.11 X10^6/uL (4.7-6.0); RED CELL DISTRIBUTION WIDTH 13.2 % (11.6-16.5)
[2020-10-31 05:48] LABS: ABG BASE EXCESS 15.7 mmol/L (-2.0-2.0)
[2020-10-31 05:49] LABS: ABG ALLEN TEST POS; ABG HCO3 40.2 mmol/L (22-26)
[2020-10-31] MEDS: DUONEB 0.5 MG/3 MG (3 mL) NEB SCH ×3 (06:00→20:30)
[2020-10-31 06:05] LABS: ALANINE AMINOTRANSFERASE 23 Units/L (12-78); ALBUMIN 2.1 g/dL (3.4-5.0); ALKALINE PHOSPHATASE 96 Units/L (46-116); ASPARTATE AMINO TRANSFERASE 19 Units/L (15-37); BLOOD UREA NITROGEN 30 mg/dL (7-18); CALCIUM 8.2 mg/dL (8.5-10.1); CARBON DIOXIDE 36.4 mmol/L (21-32); CHLORIDE 103 mmol/L (98-107); COR CA(FOR HYPOALB) 9.7 mg/dL (8.5-10.1); COR NA(FOR HYPERGLY) 147 mmol/L (136-145); CREATININE 0.92 mg/dL (0.70-1.30); SODIUM 144 mmol/L (136-145); TOTAL PROTEIN 5.6 g/dL (6.4-8.2); eGFR NON BLACK RACES > 60 (>60)
--- NOTE | 2020-10-31 06:14 | RAD ---
HISTORYSOBSTUDYAP [id number]/21/2021FINDINGSSimilar heart size, upper-normal. Bilateral infiltrates are present, similar on the left and slightly increased at the right base. There is no evidence for pneumothorax or large pleural effusion. Stable position of left PICC.IMPRESSIONPersistent bilateral pneumonia with slight interval progression in the right lower lobe.Electronically signed by: KLEBER LONDON (Oct 31, 2020 06:12:00)
[2020-10-31 07:39] LABS: PLATELET MORPHOLOGY COMMENT NORMAL (NORMAL)
[2020-10-31] MEDS ORDERED: LEXAPRO ONE (08:23)
[2020-10-31] MEDS: ZESTRIL TAB 5 MG PO SCH (08:40)
[2020-10-31] MEDS: COREG TAB 12.5 MG PO SCH ×2 (08:40→21:36)
[2020-10-31] MEDS: TRICOR TAB 160 MG PO SCH (08:40)
[2020-10-31] MEDS: PROTONIX INJ 40 MG VIAL IVP SCH ×2 (08:40→21:37)
[2020-10-31] MEDS: LOVENOX INJ 30 MG SYR SC SCH ×2 (08:40→21:36)
[2020-10-31] MEDS: LIPITOR TAB 80 MG PO SCH (08:40)
[2020-10-31] MEDS: VITAMIN A PO SCH (08:40)
[2020-10-31] MEDS: PEPCID TAB 40 MG PO SCH (08:40)
[2020-10-31] MEDS: NYSTATIN POWDER TOP SCH ×2 (08:40→21:37)
[2020-10-31] MEDS: LEXAPRO PO SCH (08:40)
[2020-10-31] MEDS: LEVEMIR SC SCH (08:40)
[2020-10-31] MEDS: LASIX IVP SCH (08:40)
[2020-10-31] MEDS: VITAMIN D3 125 mcg (5,000 UNITS) PO SCH (08:40)
[2020-10-31] MEDS: ZINC SULFATE PO SCH ×2 (08:40→21:38)
[2020-10-31] MEDS: VSL#3 PO SCH (08:57)
[2020-10-31] MEDS: ROBITUSSIN DM PO SCH ×5 (08:59→22:13)
[2020-10-31] MEDS: DIFLUCAN 200 MG IV PREMIX* 200 MG/100 ML BAG IV SCH (09:20)
[2020-10-31] MEDS: ZITHROMAX INJ 500 MG VIAL 500 MG in NS 250 ML IV 250 ML IV SCH (10:31)
[2020-10-31] MEDS: SNACK - Diabetic Appropriate PO SCH (20:00)
[2020-10-31] MEDS: ARTIFICIAL TEARS DROPS AFFEYE SCH (21:00)
[2020-11-01] MEDS: ASCORBIC ACID INJ MULTI-DOSE VIAL 1,500 MG in NS 100 ML IV 100 ML IV SCH ×4 (02:29→21:00)
[2020-11-01] MEDS ORDERED: NS 1/2 1000 ML IV 1,000 ML IV ONE (03:08)
[2020-11-01] MEDS: NS 1/2 1000 ML IV 1,000 ML IV SCH ×3 (03:25→21:37)
[2020-11-01 05:01] LABS: ABG BASE EXCESS 15.4 mmol/L (-2.0-2.0)
[2020-11-01 05:02] LABS: ABG ALLEN TEST POS; ABG HCO3 40.1 mmol/L (22-26)
[2020-11-01] MEDS: DUONEB 0.5 MG/3 MG (3 mL) NEB SCH ×3 (05:03→22:05)
[2020-11-01 05:14] LABS: BASOPHILS # (AUTO) 0.1 X10^3/uL (0.0-0.1); BASOPHILS % (AUTO) 0.3 % (0.2-1.0); HEMATOCRIT 39.4 % (42.0-54.0); LYMPHOCYTES # (AUTO) 0.3 X10^3/uL (1.3-2.9); LYMPHOCYTES % (AUTO) 1.3 % (21.0-51.0); MEAN CORPUSCULAR HEMOGLOBIN 30.4 pg (27.0-34.0); MEAN CORPUSCULAR HGB CONC 33.1 g/dL (33.0-35.0); MEAN CORPUSCULAR VOLUME 91.8 fL (80.0-100.0); MEAN PLATELET VOLUME 8.7 fL (7.4-11.0); MONOCYTES # (AUTO) 0.7 x10^3/uL (0.3-0.8); MONOCYTES % (AUTO) 3.2 % (0.0-13.0); NEUTROPHILS # (AUTO) 20.2 x10^3/uL (2.2-4.8); NEUTROPHILS % (AUTO) 95.2 % (42.0-75.0); PLATELET COUNT 271 X10^3/uL (150.0-450.0); RED BLOOD COUNT 4.29 X10^6/uL (4.7-6.0); RED CELL DISTRIBUTION WIDTH 12.8 % (11.6-16.5); WHITE BLOOD COUNT 21.2 X10^3/uL (3.6-10.0)
[2020-11-01 05:21] LABS: ALANINE AMINOTRANSFERASE 25 Units/L (12-78); ALBUMIN 2.1 g/dL (3.4-5.0); ALKALINE PHOSPHATASE 99 Units/L (46-116); ASPARTATE AMINO TRANSFERASE 22 Units/L (15-37); BLOOD UREA NITROGEN 30 mg/dL (7-18); CALCIUM 8.5 mg/dL (8.5-10.1); CARBON DIOXIDE 35.2 mmol/L (21-32); CHLORIDE 105 mmol/L (98-107); COR NA(FOR HYPERGLY) 149 mmol/L (136-145); CREATININE 1.05 mg/dL (0.70-1.30); SODIUM 145 mmol/L (136-145); TOTAL PROTEIN 5.8 g/dL (6.4-8.2); eGFR NON BLACK RACES > 60 (>60)
[2020-11-01 05:50] LABS: PLATELET MORPHOLOGY COMMENT NORMAL (NORMAL)
--- NOTE | 2020-11-01 06:21 | RAD ---
HISTORYSOB pneumoniaSTUDYPortable AP [id number]/23/2021FINDINGSMild stable cardiomegaly. Similar degree and distribution of bilateral interstitial-airspace infiltrates. Interval development of extrapulmonary air in the subcutaneous tissues and mediastinum. No definite pneumothorax seen. Left PICC stable in position.IMPRESSIONPersistent cardiac prominence and similar appearance of bilateral pneumonia. Interval appearance of subcutaneous emphysema and pneumomediastinum.Electronically signed by: KLEBER LONDON (Nov 01, 2020 06:19:59)
[2020-11-01] MEDS: SOLU-Medrol 125 MG VIAL IVP SCH ×3 (06:33→22:10)
[2020-11-01] MEDS: HumuLIN R SUBCUT PRN ×3 (06:34→21:00)
[2020-11-01] MEDS ORDERED: LEXAPRO ONE (08:56)
[2020-11-01] MEDS: ZINC SULFATE PO SCH ×2 (09:30→21:00)
[2020-11-01] MEDS: LEXAPRO PO SCH (09:30)
[2020-11-01] MEDS: VITAMIN A PO SCH (09:30)
[2020-11-01] MEDS: ZESTRIL TAB 5 MG PO SCH (09:30)
[2020-11-01] MEDS: LEVEMIR SC SCH (09:30)
[2020-11-01] MEDS: COREG TAB 12.5 MG PO SCH ×2 (09:30→21:00)
[2020-11-01] MEDS: VITAMIN D3 125 mcg (5,000 UNITS) PO SCH (09:30)
[2020-11-01] MEDS: LASIX IVP SCH (09:30)
[2020-11-01] MEDS: LIPITOR TAB 80 MG PO SCH (09:30)
[2020-11-01] MEDS: VSL#3 PO SCH (09:30)
[2020-11-01] MEDS: ZITHROMAX INJ 500 MG VIAL 500 MG in NS 250 ML IV 250 ML IV SCH (10:15)
[2020-11-01] MEDS: TRICOR TAB 160 MG PO SCH (10:17)
[2020-11-01] MEDS: PROTONIX INJ 40 MG VIAL IVP SCH ×2 (10:18→21:00)
[2020-11-01] MEDS: LOVENOX INJ 30 MG SYR SC SCH ×2 (10:18→21:00)
[2020-11-01] MEDS: ROBITUSSIN DM PO SCH ×4 (10:18→22:14)
[2020-11-01] MEDS: PEPCID TAB 40 MG PO SCH (10:18)
[2020-11-01] MEDS: NYSTATIN POWDER TOP SCH ×2 (10:20→21:00)
[2020-11-01] MEDS ORDERED: PHARMACY CONSULT - TPN XX SCH (11:00)
[2020-11-01] MEDS: DIFLUCAN 200 MG IV PREMIX* 200 MG/100 ML BAG IV SCH (13:29)
[2020-11-01] MEDS: CLINIMIX 4.25 %/10 % 1,000 ML with TPN ELECTROLYTES 20 ML, MVI INJ (ADULT) 10 ML IV SCH ×3 (14:15)
--- NOTE | 2020-11-01 19:58 | PCM.PROG ---
Progress Note - Progress Note for Day of Date of Exam: 10/31/20 - Subjective Subjective: WAS ADMITTED FOR TREATMENT OF PNEUMONIA DUE TO COVID-19 AND HYPOXIA. TODAY, HE IS ALERT, LYING IN BED ON MORNING ROUNDS. HE CONTINUES WITH COMPLAINT OF A NON-PRODUCTIVE COUGH, SHORTNESS OF BREATH, AND GENERALIZED WEAKNESS. HE DENIES SIGNIFICANT IMPROVEMENT SINCE PREVIOUS DAY. HE IS CURRENTLY ON THE BIPAP. HIS OXYGEN SATURATIONS HAVE BEEN 92-94% THIS MORNING AND THROUGHOUT THE NIGHT. CONVALESCENT PLASMA HAS BEEN ORDERED, BUT HAS NOT ARRIVED AT THIS TIME. ON EXAMINATION, HEART IS REGULAR IN RATE AND RHYTHM. BILATERAL LUNGS ARE NOTED WITH RALES THROUGHOUT. ABDOMEN IS ROUND, SOFT, AND NON-TENDER WITH NORMAL BOWEL SOUNDS NOTED IN ALL QUADRANTS. HIS VITALS THIS MORNING ARE: 98.8-74-19-93%-188/89. LABS WERE OBTAINED. ABNORMAL LAB VALUES INCLUDE THE FOLLOWING: WBC 19.0, RBC 4.11, HGB 12.6, HCT 38.1, D-DIMER 2.02, CARBON DIOXIDE 36.4, BUN 30, GLUCOSE 227, CALCIUM 8.2, CRP 11.50, BNP 157, TOTAL PROTEIN 5.6, ALBUMIN 2.1 BLOOD CULTURES ARE PENDING. AN ABG WAS OBTAINED AND REVEALED: PH 7.460, PC02 40, P02 75, HC03 28.4, 02 SAT 96, BASE EXCESS 4.2, A-A GRADIENT 531, FI02 92. BLOOD CULTURES ARE PENDING. A CHEST XRAY WAS OBTAINED AND REVEALED: Persistent bilateral pneumonia with slight interval progression in the right lower lobe. HE HAS RECEIVED A COURSE OF REMDESIVIR. WE WILL CONTINUE WITH IV FLUIDS, IV ANTIBIOTICS, NEB TX, AND CURRENT PLAN OF CARE. OTHERWISE, WE PLAN TO FOLLOW UP WITH AM LABS, XRAY, ABG AND CONTINUE TO MONITOR. TIME SPENT ON CLINICAL ASSESSMENT, REVIEWING LABS AND IMAGING, DECISION MAKING, AND DOCUMENTATION GREATER THAN 75 MINUTES. - Past Medical Family Social History Past Med/Fam/Surg Hx: No changes since H&P Allergies: Allergies No Known Drug Allergies Allergy (Verified 10/19/20 06:47) - Review of Systems ROS: No change since H&P - Vital Signs and I&O's Vital Signs: Temperature 99.1 F Pulse Rate [Apical] 80 Pulse Rate 80 Respiratory Rate 26 Blood Pressure [Right Arm] 155/86 Blood Pressure [Right Radial 162/77 Artery] Blood Pressure [Left Arm] 188/81 Blood Pressure 170/81 O2 Sat by Pulse Oximetry 92 Intake and Output: Intake & Output 10/30/20 10/31/20 11/01/20 11/02/20 11:59 11:59 11:59 11:59 Intake Total 4700 / 4700 3510 / 3510 2169 / 2169 1200 / 1200 Output Total 1500 / 1500 2630 / 2630 2300 / 2300 950 / 950 Balance 3200 / 3200 880 / 880 -131 / -131 250 / 250 - Physical Exam Oriented: Normal Eyes: Normal Ear: Normal Nose: Normal Throat: Normal Cardiovascular: Normal : Normal Auscultation: Bowel Sounds: Normal Palpation: Normal Tenderness: Normal Skin: Decreased Turgur Musculoskeletal: Normal Psychiatric: Anxiety Affect: Anxious Speech Pattern: Clear, Appropriate - Laboratory and Diagnostics Result Diagrams: 11/01/20 04:35 11/01/20 04:35 Labs: 10/28/20 14:45 Stool Stool Culture - Final 10/28/20 14:45 Stool - Final 10/19/20 06:50 Blood Blood Culture - Final 10/19/20 06:50 Blood Blood Culture - Final 10/20/20 13:30 Urine,Clean Catch Urine Culture - Final 10/21/20 04:05 Sputum - Expectorated Sputum Sputum Culture - Final 10/21/20 04:05 Sputum - Expectorated Sputum - Final Laboratory WBC 21.2 X10^3/uL (3.6-10.0) H 11/01/20 04:35 RBC 4.29 X10^6/uL (4.7-6.0) L 11/01/20 04:35 Hgb 13.0 g/dL (13.5-18.0) L 11/01/20 04:35 Hct 39.4 % (42.0-54.0) L 11/01/20 04:35 MCV 91.8 fL (80.0-100.0) 11/01/20 04:35 MCH 30.4 pg (27.0-34.0) 11/01/20 04:35 MCHC 33.1 g/dL (33.0-35.0) 11/01/20 04:35 RDW 12.8 % (11.6-16.5) 11/01/20 04:35 Plt Count 271 X10^3/uL (150.0-450.0) 11/01/20 04:35 Plt Count Comment Adequate (ADEQUATE) 11/01/20 04:35 MPV 8.7 fL (7.4-11.0) 11/01/20 04:35 Neut % (Auto) 95.2 % (42.0-75.0) H 11/01/20 04:35 Lymph % (Auto) 1.3 % (21.0-51.0) L 11/01/20 04:35 [place] % (Auto) 3.2 % (0.0-13.0) 11/01/20 04:35 Eos % (Auto) 0.0 % (0.9-2.9) L 11/01/20 04:35 Baso % (Auto) 0.3 % (0.2-1.0) 11/01/20 04:35 Neut # (Auto) 20.2 x10^3/uL (2.2-4.8) H 11/01/20 04:35 Lymph # (Auto) 0.3 X10^3/uL (1.3-2.9) L 11/01/20 04:35 [place] # (Auto) 0.7 x10^3/uL (0.3-0.8) 11/01/20 04:35 Eos # (Auto) 0.0 x10^3/uL (0.0-0.2) 11/01/20 04:35 Baso # (Auto) 0.1 X10^3/uL (0.0-0.1) 11/01/20 04:35 Absolute Nucleated RBC 0.0 /100WBC 11/01/20 04:35 Total Counted 100 11/01/20 04:35 Neutrophils % (Manual) 97 % (39-76) H 11/01/20 04:35 Band Neutrophils % 2 % (0-10) 10/30/20 04:50 Lymphocytes % (Manual) 2 % (13-43) L 11/01/20 04:35 Monocytes % (Manual) 1 % (4-9) L 11/01/20 04:35 Basophils % (Manual) 1 % (0-1) 10/24/20 06:05 Myelocytes % 4 10/24/20 06:05 Plt Clumps, EDTA Few 10/23/20 05:35 Plt Morphology Comment Normal (NORMAL) 11/01/20 04:35 RBC Morphology Normal (NORMAL) 11/01/20 04:35 PT 16.1 SECONDS (11.8-14.3) 10/19/20 06:50 INR Target Range - 10/19/20 06:50 INR 1.33 (0.8-1.3) H 10/19/20 06:50 APTT 31.5 SECONDS (22.9-36.5) 10/19/20 06:50 PTT Comment - 10/19/20 06:50 D-Dimer 1.95 ug/ml (0.0-0.57) H* 11/01/20 04:45 Sample Site Rr 11/01/20 04:55 ABG pH 7.530 (7.35-7.45) H 11/01/20 04:55 ABG pCO2 48.0 mmHg (35.0-45.0) H 11/01/20 04:55 ABG pO2 61.0 mmHg (80.0-100.0) L 11/01/20 04:55 ABG HCO3 40.1 mmol/L (22-26) H* 11/01/20 04:55 ABG O2 Saturation 94.0 % (90-100) 11/01/20 04:55 ABG Base Excess 15.4 mmol/L (-2.0-2.0) H 11/01/20 04:55 Abad Test Pos 11/01/20 04:55 A-a Gradient 307.0 mmHg 11/01/20 04:55 FiO2 60.0 11/01/20 04:55 Blood Gas Comments Gail well ae 11/01/20 04:55 Sodium 145 mmol/L (136-145) 11/01/20 04:35 Corrected Sodium 149 mmol/L (136-145) H 11/01/20 04:35 Potassium 3.8 mmol/L (3.5-5.1) 11/01/20 04:35 Chloride 105 mmol/L (98-107) 11/01/20 04:35 Carbon Dioxide 35.2 mmol/L (21-32) H 11/01/20 04:35 BUN 30 mg/dL (7-18) H 11/01/20 04:35 Creatinine 1.05 mg/dL (0.70-1.30) 11/01/20 04:35 Est GFR (MDRD) Af Amer > 60 (>60) 11/01/20 04:35 Est GFR (MDRD) Non-Af > 60 (>60) 11/01/20 04:35 Glucose 263 mg/dL (65-99) H 11/01/20 04:35 POC Glucose (mg/dL) 313 mg/dL (65-99) H 11/01/20 19:45 Hemoglobin A1c 6.7 % 10/21/20 08:40 Lactic Acid 1.4 mmol/L (0.4-2.0) 10/20/20 13:43 Calcium 8.5 mg/dL (8.5-10.1) 11/01/20 04:35 Corrected Calcium 10.0 mg/dL (8.5-10.1) 11/01/20 04:35 Magnesium 2.4 mg/dL (1.7-2.9) 10/30/20 04:50 Ferritin 779 ng/mL (26-388) H 10/19/20 06:50 Total Bilirubin 0.70 mg/dL (0.2-1.0) 11/01/20 04:35 AST 22 Units/L (15-37) 11/01/20 04:35 ALT 25 Units/L (12-78) 11/01/20 04:35 Alkaline Phosphatase 99 Units/L (46-116) 11/01/20 04:35 Creatine Kinase 120 Units/L (39-308) 10/21/20 08:40 CK-MB (CK-2) < 1.0 ng/mL (0-4.0) 10/21/20 08:40 CK/CKMB % Calc 0.8 % (<4) 10/21/20 08:40 Troponin I 0.04 ng/mL (0-1.5) 10/21/20 08:40 C-Reactive Protein 8.50 mg/L (0-3.0) H 11/01/20 04:35 B-Natriuretic Peptide 202 pg/mL (0-79) H 11/01/20 04:35 Total Protein 5.8 g/dL (6.4-8.2) L 11/01/20 04:35 Albumin 2.1 g/dL (3.4-5.0) L 11/01/20 04:35 Globulin 3.7 g/dL (2.5-4.5) 11/01/20 04:35 Albumin/Globulin Ratio 0.6 Ratio (1.1-2.1) L 11/01/20 04:35 Prealbumin 17.7 mg/dL (18-35.7) L 11/01/20 04:35 Specimen Type Clean catch urine 10/20/20 13:30 Urine Color Yellow (YELLOW) 10/20/20 13:30 Urine Appearance Hazy (CLEAR) 10/20/20 13:30 Urine pH 5.0 (5.0 - 8.0) 10/20/20 13:30 Ur Specific [place] 1.020 (1.000-1.030) 10/20/20 13:30 Urine Protein 2+ (NEGATIVE) 10/20/20 13:30 Urine Glucose (UA) 3+ (NEGATIVE) 10/20/20 13:30 Urine Ketones Negative (NEGATIVE) 10/20/20 13:30 Urine Occult Blood 1+ (NEGATIVE) 10/20/20 13:30 Urine Nitrite Negative (NEGATIVE) 10/20/20 13:30 Urine Bilirubin Negative (NEGATIVE) 10/20/20 13:30 Urine Urobilinogen Normal (NORMAL) 10/20/20 13:30 Ur Leukocyte Esterase Negative (NEGATIVE) 10/20/20 13:30 Urine RBC 0-2 /HPF (0-3) 10/20/20 13:30 Urine WBC 0-2 /HPF (0-5) 10/20/20 13:30 Ur Squamous Epith Cells Rare /HPF (NEGATIVE) 10/20/20 13:30 Amorphous Sediment 1+ /HPF (NEGATIVE) 10/20/20 13:30 Urine Bacteria 1+ /HPF (NEGATIVE) 10/20/20 13:30 Urine Mucus Few /HPF (NEGATIVE) 10/20/20 13:30 Ur Culture Indicated? Yes/culture set up 10/20/20 13:30 SARS CoV-2 RNA Rapid HARINDER Positive (NEGATIVE) A 10/19/20 12:28 Miscellaneous Test Cancelled 10/29/20 16:35 Blood Type B POSITIVE 10/21/20 08:40 - Plan (1) Pneumonia due to COVID-19 virus Status: Acute Plan: BIPAP, IV FLUIDS, IV ANTIBIOTICS, NEB TS, CONTINUE CURRENT PLAN OF CARE, CONTINUE TO MONITOR. (2) Hypoxia Status: Acute
[2020-11-01] MEDS: SNACK - Diabetic Appropriate PO SCH (20:00)
--- NOTE | 2020-11-01 20:21 | PCM.PROG ---
Progress Note - Progress Note for Day of Date of Exam: 11/01/20 - Subjective Subjective: WAS ADMITTED FOR TREATMENT OF PNEUMONIA DUE TO COVID-19 AND HYPOXIA. TODAY, HE IS ALERT, LYING IN BED ON MORNING ROUNDS. HE CONTINUES WITH COMPLAINT OF A NON-PRODUCTIVE COUGH, SHORTNESS OF BREATH, AND GENERALIZED WEAKNESS. HE REPORTS SLIGHT INCREASE IN SHORTNESS OF BREATH THIS MORNING. HE IS CURRENTLY ON THE BIPAP. HIS OXYGEN SATURATIONS HAVE BEEN 87-92% THIS MORNING AND THROUGHOUT THE NIGHT. CONVALESCENT PLASMA HAS BEEN ORDERED, BUT HAS NOT ARRIVED AT THIS TIME. ON EXAMINATION, HEART IS REGULAR IN RATE AND RHYTHM. BILATERAL LUNGS ARE NOTED WITH RALES THROUGHOUT. ABDOMEN IS ROUND, SOFT, AND NON-TENDER WITH NORMAL BOWEL SOUNDS NOTED IN ALL QUADRANTS. HIS VITALS THIS MORNING ARE: 99.1-81-21-87%BIPAP-192/98. LABS WERE OBTAINED. ABNORMAL LAB VALUES INCLUDE THE FOLLOWING: WBC 21.2, RBC 4.29, HGB 13.0, HCT 39.4, D-DIMER 1.95, CARBON DIOXIDE 35.2, BUN 30, GLUCOSE 263, CRP 8.50, BNP 202, TOTAL PROTEIN 5.8, ALBUMIN 2.1. AN ABG WAS OBTAINED AND REVEALED: PH 7.530, PC02 48, P02 61, HC03 40.1, P02 94, BASE EXCESS 15.4, A-A GRADIENT 307, FI02 60. A CHEST XRAY WAS OBTAINED AND REVEALED: Persistent cardiac prominence and similar appearance of bilateral pneumonia. Interval appearance of subcutaneous emphysema and pneumomediastinum. HE HAS RECEIVED A COURSE OF REMDESIVIR. WE WILL CONTINUE WITH IV FLUIDS, IV ANTIBIOTICS, NEB TX, AND CURRENT PLAN OF CARE. WE WILL ADD TPN. OTHERWISE, WE PLAN TO FOLLOW UP WITH AM LABS, XRAY, ABG AND CONTINUE TO MONITOR. TIME SPENT ON CLINICAL ASSESSMENT, REVIEWING LABS AND IMAGING, DECISION MAKING, AND DOCUMENTATION GREATER THAN 75 MINUTES. - Past Medical Family Social History Past Med/Fam/Surg Hx: No changes since H&P Allergies: Allergies No Known Drug Allergies Allergy (Verified 10/19/20 06:47) - Review of Systems ROS: No change since H&P - Vital Signs and I&O's Vital Signs: Temperature 99.1 F Pulse Rate [Apical] 80 Pulse Rate 80 Respiratory Rate 26 Blood Pressure [Right Arm] 155/86 Blood Pressure [Right Radial 162/77 Artery] Blood Pressure [Left Arm] 188/81 Blood Pressure 170/81 O2 Sat by Pulse Oximetry 92 Intake and Output: Intake & Output 10/30/20 10/31/20 11/01/20 11/02/20 11:59 11:59 11:59 11:59 Intake Total 4700 / 4700 3510 / 3510 2169 / 2169 1200 / 1200 Output Total 1500 / 1500 2630 / 2630 2300 / 2300 950 / 950 Balance 3200 / 3200 880 / 880 -131 / -131 250 / 250 - Physical Exam Oriented: Normal Eyes: Normal Ear: Normal Nose: Normal Throat: Normal Cardiovascular: Normal : Normal Auscultation: Bowel Sounds: Normal Palpation: Normal Tenderness: Normal Skin: Decreased [place]urgur Musculoskeletal: Normal Psychiatric: Anxiety Affect: Anxious Speech Pattern: Clear, Appropriate - Laboratory and Diagnostics Result Diagrams: 11/01/20 04:35 11/01/20 04:35 Labs: 10/28/20 14:45 Stool Stool Culture - Final 10/28/20 14:45 Stool - Final 10/19/20 06:50 Blood Blood Culture - Final 10/19/20 06:50 Blood Blood Culture - Final 10/20/20 13:30 Urine,Clean Catch Urine Culture - Final 10/21/20 04:05 Sputum - Expectorated Sputum Sputum Culture - Final 10/21/20 04:05 Sputum - Expectorated Sputum - Final Laboratory WBC 21.2 X10^3/uL (3.6-10.0) H 11/01/20 04:35 RBC 4.29 X10^6/uL (4.7-6.0) L 11/01/20 04:35 Hgb 13.0 g/dL (13.5-18.0) L 11/01/20 04:35 Hct 39.4 % (42.0-54.0) L 11/01/20 04:35 MCV 91.8 fL (80.0-100.0) 11/01/20 04:35 MCH 30.4 pg (27.0-34.0) 11/01/20 04:35 MCHC 33.1 g/dL (33.0-35.0) 11/01/20 04:35 RDW 12.8 % (11.6-16.5) 11/01/20 04:35 Plt Count 271 X10^3/uL (150.0-450.0) 11/01/20 04:35 Plt Count Comment Adequate (ADEQUATE) 11/01/20 04:35 MPV 8.7 fL (7.4-11.0) 11/01/20 04:35 Neut % (Auto) 95.2 % (42.0-75.0) H 11/01/20 04:35 Lymph % (Auto) 1.3 % (21.0-51.0) L 11/01/20 04:35 [place] % (Auto) 3.2 % (0.0-13.0) 11/01/20 04:35 Eos % (Auto) 0.0 % (0.9-2.9) L 11/01/20 04:35 Baso % (Auto) 0.3 % (0.2-1.0) 11/01/20 04:35 Neut # (Auto) 20.2 x10^3/uL (2.2-4.8) H 11/01/20 04:35 Lymph # (Auto) 0.3 X10^3/uL (1.3-2.9) L 11/01/20 04:35 [place] # (Auto) 0.7 x10^3/uL (0.3-0.8) 11/01/20 04:35 Eos # (Auto) 0.0 x10^3/uL (0.0-0.2) 11/01/20 04:35 Baso # (Auto) 0.1 X10^3/uL (0.0-0.1) 11/01/20 04:35 Absolute Nucleated RBC 0.0 /100WBC 11/01/20 04:35 Total Counted 100 11/01/20 04:35 Neutrophils % (Manual) 97 % (39-76) H 11/01/20 04:35 Band Neutrophils % 2 % (0-10) 10/30/20 04:50 Lymphocytes % (Manual) 2 % (13-43) L 11/01/20 04:35 Monocytes % (Manual) 1 % (4-9) L 11/01/20 04:35 Basophils % (Manual) 1 % (0-1) 10/24/20 06:05 Myelocytes % 4 10/24/20 06:05 Plt Clumps, EDTA Few 10/23/20 05:35 Plt Morphology Comment Normal (NORMAL) 11/01/20 04:35 RBC Morphology Normal (NORMAL) 11/01/20 04:35 PT 16.1 SECONDS (11.8-14.3) 10/19/20 06:50 INR Target Range - 10/19/20 06:50 INR 1.33 (0.8-1.3) H 10/19/20 06:50 APTT 31.5 SECONDS (22.9-36.5) 10/19/20 06:50 PTT Comment - 10/19/20 06:50 D-Dimer 1.95 ug/ml (0.0-0.57) H* 11/01/20 04:45 Sample Site Rr 11/01/20 04:55 ABG pH 7.530 (7.35-7.45) H 11/01/20 04:55 ABG pCO2 48.0 mmHg (35.0-45.0) H 11/01/20 04:55 ABG pO2 61.0 mmHg (80.0-100.0) L 11/01/20 04:55 ABG HCO3 40.1 mmol/L (22-26) H* 11/01/20 04:55 ABG O2 Saturation 94.0 % (90-100) 11/01/20 04:55 ABG Base Excess 15.4 mmol/L (-2.0-2.0) H 11/01/20 04:55 Abad Test Pos 11/01/20 04:55 A-a Gradient 307.0 mmHg 11/01/20 04:55 FiO2 60.0 11/01/20 04:55 Blood Gas Comments Gail well ae 11/01/20 04:55 Sodium 145 mmol/L (136-145) 11/01/20 04:35 Corrected Sodium 149 mmol/L (136-145) H 11/01/20 04:35 Potassium 3.8 mmol/L (3.5-5.1) 11/01/20 04:35 Chloride 105 mmol/L (98-107) 11/01/20 04:35 Carbon Dioxide 35.2 mmol/L (21-32) H 11/01/20 04:35 BUN 30 mg/dL (7-18) H 11/01/20 04:35 Creatinine 1.05 mg/dL (0.70-1.30) 11/01/20 04:35 Est GFR (MDRD) Af Amer > 60 (>60) 11/01/20 04:35 Est GFR (MDRD) Non-Af > 60 (>60) 11/01/20 04:35 Glucose 263 mg/dL (65-99) H 11/01/20 04:35 POC Glucose (mg/dL) 313 mg/dL (65-99) H 11/01/20 19:45 Hemoglobin A1c 6.7 % 10/21/20 08:40 Lactic Acid 1.4 mmol/L (0.4-2.0) 10/20/20 13:43 Calcium 8.5 mg/dL (8.5-10.1) 11/01/20 04:35 Corrected Calcium 10.0 mg/dL (8.5-10.1) 11/01/20 04:35 Magnesium 2.4 mg/dL (1.7-2.9) 10/30/20 04:50 Ferritin 779 ng/mL (26-388) H 10/19/20 06:50 Total Bilirubin 0.70 mg/dL (0.2-1.0) 11/01/20 04:35 AST 22 Units/L (15-37) 11/01/20 04:35 ALT 25 Units/L (12-78) 11/01/20 04:35 Alkaline Phosphatase 99 Units/L (46-116) 11/01/20 04:35 Creatine Kinase 120 Units/L (39-308) 10/21/20 08:40 CK-MB (CK-2) < 1.0 ng/mL (0-4.0) 10/21/20 08:40 CK/CKMB % Calc 0.8 % (<4) 10/21/20 08:40 Troponin I 0.04 ng/mL (0-1.5) 10/21/20 08:40 C-Reactive Protein 8.50 mg/L (0-3.0) H 11/01/20 04:35 B-Natriuretic Peptide 202 pg/mL (0-79) H 11/01/20 04:35 Total Protein 5.8 g/dL (6.4-8.2) L 11/01/20 04:35 Albumin 2.1 g/dL (3.4-5.0) L 11/01/20 04:35 Globulin 3.7 g/dL (2.5-4.5) 11/01/20 04:35 Albumin/Globulin Ratio 0.6 Ratio (1.1-2.1) L 11/01/20 04:35 Prealbumin 17.7 mg/dL (18-35.7) L 11/01/20 04:35 Specimen Type Clean catch urine 10/20/20 13:30 Urine Color Yellow (YELLOW) 10/20/20 13:30 Urine Appearance Hazy (CLEAR) 10/20/20 13:30 Urine pH 5.0 (5.0 - 8.0) 10/20/20 13:30 Ur Specific [place] 1.020 (1.000-1.030) 10/20/20 13:30 Urine Protein 2+ (NEGATIVE) 10/20/20 13:30 Urine Glucose (UA) 3+ (NEGATIVE) 10/20/20 13:30 Urine Ketones Negative (NEGATIVE) 10/20/20 13:30 Urine Occult Blood 1+ (NEGATIVE) 10/20/20 13:30 Urine Nitrite Negative (NEGATIVE) 10/20/20 13:30 Urine Bilirubin Negative (NEGATIVE) 10/20/20 13:30 Urine Urobilinogen Normal (NORMAL) 10/20/20 13:30 Ur Leukocyte Esterase Negative (NEGATIVE) 10/20/20 13:30 Urine RBC 0-2 /HPF (0-3) 10/20/20 13:30 Urine WBC 0-2 /HPF (0-5) 10/20/20 13:30 Ur Squamous Epith Cells Rare /HPF (NEGATIVE) 10/20/20 13:30 Amorphous Sediment 1+ /HPF (NEGATIVE) 10/20/20 13:30 Urine Bacteria 1+ /HPF (NEGATIVE) 10/20/20 13:30 Urine Mucus Few /HPF (NEGATIVE) 10/20/20 13:30 Ur Culture Indicated? Yes/culture set up 10/20/20 13:30 SARS CoV-2 RNA Rapid HARINDER Positive (NEGATIVE) A 10/19/20 12:28 Miscellaneous Test Cancelled 10/29/20 16:35 Blood Type B POSITIVE 10/21/20 08:40 - Plan (1) Pneumonia due to COVID-19 virus Status: Acute Plan: BIPAP, IV FLUIDS, IV ANTIBIOTICS, NEB TS, CONTINUE CURRENT PLAN OF CARE, CONTINUE TO MONITOR. (2) Hypoxia Status: Acute
[2020-11-01] MEDS: ARTIFICIAL TEARS DROPS AFFEYE SCH (21:00)
[2020-11-02] MEDS: ASCORBIC ACID INJ MULTI-DOSE VIAL 1,500 MG in NS 100 ML IV 100 ML IV SCH ×4 (03:51→21:00)
[2020-11-02 05:23] LABS: BASOPHILS # (AUTO) 0.1 X10^3/uL (0.0-0.1); BASOPHILS % (AUTO) 0.2 % (0.2-1.0); HEMATOCRIT 40.7 % (42.0-54.0); HEMOGLOBIN 13.4 g/dL (13.5-18.0); LYMPHOCYTES # (AUTO) 0.3 X10^3/uL (1.3-2.9); LYMPHOCYTES % (AUTO) 1.4 % (21.0-51.0); MEAN CORPUSCULAR HEMOGLOBIN 30.4 pg (27.0-34.0); MEAN CORPUSCULAR VOLUME 92.4 fL (80.0-100.0); MEAN PLATELET VOLUME 8.7 fL (7.4-11.0); MONOCYTES # (AUTO) 0.7 x10^3/uL (0.3-0.8); NEUTROPHILS # (AUTO) 22.3 x10^3/uL (2.2-4.8); NEUTROPHILS % (AUTO) 95.4 % (42.0-75.0); PLATELET COUNT 317 X10^3/uL (150.0-450.0); RED BLOOD COUNT 4.41 X10^6/uL (4.7-6.0); WHITE BLOOD COUNT 23.4 X10^3/uL (3.6-10.0)
[2020-11-02] MEDS ORDERED: NS 1/2 1000 ML IV 1,000 ML IV ONE (05:26)
[2020-11-02 05:34] LABS: ALANINE AMINOTRANSFERASE 27 Units/L (12-78); ALBUMIN 2.2 g/dL (3.4-5.0); ALKALINE PHOSPHATASE 93 Units/L (46-116); ASPARTATE AMINO TRANSFERASE 20 Units/L (15-37); BLOOD UREA NITROGEN 34 mg/dL (7-18); CALCIUM 8.3 mg/dL (8.5-10.1); CHLORIDE 104 mmol/L (98-107); COR CA(FOR HYPOALB) 9.7 mg/dL (8.5-10.1); COR NA(FOR HYPERGLY) 151 mmol/L (136-145); CREATININE 1.17 mg/dL (0.70-1.30); SODIUM 146 mmol/L (136-145); TOTAL PROTEIN 5.9 g/dL (6.4-8.2); eGFR NON BLACK RACES > 60 (>60)
[2020-11-02 06:06] LABS: PLATELET MORPHOLOGY COMMENT NORMAL (NORMAL)
[2020-11-02] MEDS: SOLU-Medrol 125 MG VIAL IVP SCH ×3 (06:18→21:33)
[2020-11-02] MEDS: NS 1/2 1000 ML IV 1,000 ML IV SCH ×3 (06:18→11:48)
[2020-11-02] MEDS: HumuLIN R SUBCUT PRN ×4 (06:19→21:38)
[2020-11-02] MEDS: DUONEB 0.5 MG/3 MG (3 mL) NEB SCH ×3 (06:45→21:50)
[2020-11-02 06:54] LABS: ABG ALLEN TEST POS
[2020-11-02 07:10] LABS: ABG BASE EXCESS 15.5 mmol/L (-2.0-2.0)
[2020-11-02 07:11] LABS: ABG HCO3 40.7 mmol/L (22-26)
--- NOTE | 2020-11-02 07:17 | RAD ---
HISTORYShortness of breathSTUDYChest AP [id number]/24/2021FINDINGSThere is a left-sided PICC line with its tip in the superior vena cava. Hypo inflation accentuates the heart size. It is likely mildly enlarged. No congestive heart f ailure is noted. No change subcutaneous emphysema and mediastinal air likely due to a poorly demonstr ated pneumomediastinum. There does appear to be a trace right pneumothorax visualized along the right lateral chest wall. Bilateral infiltrates are unchanged. Bony thorax is unremarkable.IMPRESSIONInter diallo visualization of a trace right pneumothorax since the prior examinationNo change subcutaneous emp hysema and mediastinal air likely due to pneumomediastinumNo change bilateral infiltratesElectronical ly signed by: HERNAN GALVIN (Nov 02, 2020 07:16:31)
[2020-11-02] MEDS ORDERED: LEXAPRO ONE (09:08)
[2020-11-02] MEDS: ROBITUSSIN DM PO SCH ×4 (09:35→21:37)
[2020-11-02] MEDS: VITAMIN A PO SCH (09:35)
[2020-11-02] MEDS: TRICOR TAB 160 MG PO SCH (09:35)
[2020-11-02] MEDS: LEXAPRO PO SCH (09:35)
[2020-11-02] MEDS: PROTONIX INJ 40 MG VIAL IVP SCH ×2 (09:35→21:33)
[2020-11-02] MEDS: LASIX IVP SCH (09:35)
[2020-11-02] MEDS: LEVEMIR SC SCH (09:35)
[2020-11-02] MEDS: NYSTATIN POWDER TOP SCH ×2 (09:35→21:33)
[2020-11-02] MEDS: PEPCID TAB 40 MG PO SCH (09:35)
[2020-11-02] MEDS: ZINC SULFATE PO SCH ×2 (09:35→21:32)
[2020-11-02] MEDS: ZESTRIL TAB 5 MG PO SCH ×2 (09:35→21:32)
[2020-11-02] MEDS: VITAMIN D3 125 mcg (5,000 UNITS) PO SCH (09:35)
[2020-11-02] MEDS: COREG TAB 12.5 MG PO SCH ×2 (09:35→21:32)
[2020-11-02] MEDS: ZITHROMAX INJ 500 MG VIAL 500 MG in NS 250 ML IV 250 ML IV SCH (09:35)
[2020-11-02] MEDS: VSL#3 PO SCH (09:35)
[2020-11-02] MEDS: LIPITOR TAB 80 MG PO SCH (09:40)
[2020-11-02] MEDS: LOVENOX INJ 30 MG SYR SC SCH ×2 (09:40→21:37)
[2020-11-02] MEDS: DIFLUCAN 200 MG IV PREMIX* 200 MG/100 ML BAG IV SCH (09:40)
[2020-11-02] MEDS: CLINIMIX 4.25 %/10 % 1,000 ML with TPN ELECTROLYTES 20 ML, MVI INJ (ADULT) 10 ML IV SCH ×3 (11:48)
--- NOTE | 2020-11-02 17:16 | RAD ---
HISTORYFOLLOW UP RT TRACE PTXSTUDYCHEST, 1 VIEWCOMPARISONEarlier same dayFINDINGSThe trachea is midline. The cardiac silhouette is unremarkable. Left-sided PICC line is in stable position. The lungs demonstrate stable subcutaneous emphysema in pneumomediastinum similar to prior. A stable tiny pneumothorax is noted. The lungs demonstrate scattered airspace opacities which are unchanged the bony thorax is unremarkable.IMPRESSIONStable chest.Electronically signed by: LOPEZ MERA (Nov 02, 2020 17:13:50)
[2020-11-02] MEDS: SNACK - Diabetic Appropriate PO SCH (21:31)
[2020-11-02] MEDS: ARTIFICIAL TEARS DROPS AFFEYE SCH (21:32)
[2020-11-02] MEDS: VIBRAMYCIN 100 MG in D5W 250 ML IV 250 ML IV SCH (21:33)
[2020-11-02] MEDS: BUTT CREAM (COMPOUND) TOP PRN (21:49)
[2020-11-03] MEDS: ASCORBIC ACID INJ MULTI-DOSE VIAL 1,500 MG in NS 100 ML IV 100 ML IV SCH ×4 (02:14→21:50)
[2020-11-03] MEDS: NS 1/2 1000 ML IV 1,000 ML IV SCH ×2 (03:17→18:06)
[2020-11-03] MEDS: APRESOLINE INJ 20 MG VIAL IVP PRN ×2 (05:30→23:10)
[2020-11-03] MEDS: SOLU-Medrol 125 MG VIAL IVP SCH ×3 (05:46→22:07)
[2020-11-03 05:48] LABS: ABG BASE EXCESS 14.7 mmol/L (-2.0-2.0)
[2020-11-03 05:49] LABS: ABG ALLEN TEST POS; ABG HCO3 39.3 mmol/L (22-26)
[2020-11-03] MEDS: DUONEB 0.5 MG/3 MG (3 mL) NEB SCH ×3 (05:50→21:50)
[2020-11-03] MEDS: HumuLIN R SUBCUT PRN ×3 (06:00→21:51)
[2020-11-03 06:15] LABS: BASOPHILS % (AUTO) 0.1 % (0.2-1.0); HEMATOCRIT 37.9 % (42.0-54.0); HEMOGLOBIN 12.8 g/dL (13.5-18.0); LYMPHOCYTES # (AUTO) 0.3 X10^3/uL (1.3-2.9); LYMPHOCYTES % (AUTO) 1.7 % (21.0-51.0); MEAN CORPUSCULAR HGB CONC 33.7 g/dL (33.0-35.0); MEAN PLATELET VOLUME 8.6 fL (7.4-11.0); MONOCYTES # (AUTO) 0.8 x10^3/uL (0.3-0.8); MONOCYTES % (AUTO) 3.8 % (0.0-13.0); NEUTROPHILS # (AUTO) 19.6 x10^3/uL (2.2-4.8); NEUTROPHILS % (AUTO) 94.4 % (42.0-75.0); PLATELET COUNT 234 X10^3/uL (150.0-450.0); RED BLOOD COUNT 4.12 X10^6/uL (4.7-6.0); RED CELL DISTRIBUTION WIDTH 12.8 % (11.6-16.5); WHITE BLOOD COUNT 20.7 X10^3/uL (3.6-10.0)
[2020-11-03 06:22] LABS: ALANINE AMINOTRANSFERASE 32 Units/L (12-78); ALBUMIN 2.1 g/dL (3.4-5.0); ALKALINE PHOSPHATASE 88 Units/L (46-116); ASPARTATE AMINO TRANSFERASE 18 Units/L (15-37); BLOOD UREA NITROGEN 31 mg/dL (7-18); CALCIUM 8.3 mg/dL (8.5-10.1); CARBON DIOXIDE 35.2 mmol/L (21-32); CHLORIDE 107 mmol/L (98-107); COR CA(FOR HYPOALB) 9.8 mg/dL (8.5-10.1); COR NA(FOR HYPERGLY) 150 mmol/L (136-145); CREATININE 0.93 mg/dL (0.70-1.30); SODIUM 147 mmol/L (136-145); TOTAL PROTEIN 5.6 g/dL (6.4-8.2); eGFR NON BLACK RACES > 60 (>60)
[2020-11-03 07:01] LABS: PLATELET MORPHOLOGY COMMENT NORMAL (NORMAL)
--- NOTE | 2020-11-03 07:19 | RAD ---
HISTORYSOBSTUDYCHEST, 1 [id number]/25/2021.TECHNIQUEAP view of the chestFINDINGUnion [facility] General Hospital upper extremity PICC line in good position. The cardiac silhouette is stably enlarged. Mediastinal contours appear stable. No significant change in bilateral airspace and interstitial opacities. No significant change in pneumomediastinum and subcutaneous emphysema in the neck and chest. No significant change in tiny right apical pneumothorax with approximately 3 mm of pleural separation.IMPRESSIONNo significant change.Electronically signed by: David aLdd (Nov 03, 2020 07:17:13)
[2020-11-03] MEDS ORDERED: LEXAPRO ONE (08:21)
[2020-11-03] MEDS: DIFLUCAN 200 MG IV PREMIX* 200 MG/100 ML BAG IV SCH (08:40)
[2020-11-03] MEDS: LEXAPRO PO SCH (08:45)
[2020-11-03] MEDS: COREG TAB 12.5 MG PO SCH ×2 (08:46→21:49)
[2020-11-03] MEDS: LASIX IVP SCH (08:47)
[2020-11-03] MEDS: LIPITOR TAB 80 MG PO SCH (08:48)
[2020-11-03] MEDS: LOVENOX INJ 30 MG SYR SC SCH ×2 (08:48→21:50)
[2020-11-03] MEDS: NYSTATIN POWDER TOP SCH ×2 (08:49→21:51)
[2020-11-03] MEDS: PEPCID TAB 40 MG PO SCH (08:49)
[2020-11-03] MEDS: PROTONIX INJ 40 MG VIAL IVP SCH ×2 (08:50→21:51)
[2020-11-03] MEDS: ROBITUSSIN DM PO SCH ×4 (08:51→21:51)
[2020-11-03] MEDS: TRICOR TAB 160 MG PO SCH (08:52)
[2020-11-03] MEDS: LEVEMIR SC SCH (08:53)
[2020-11-03] MEDS: VITAMIN D3 125 mcg (5,000 UNITS) PO SCH (08:54)
[2020-11-03] MEDS: VITAMIN A PO SCH (08:54)
[2020-11-03] MEDS: ZESTRIL TAB 5 MG PO SCH ×2 (08:55→21:49)
[2020-11-03] MEDS: ZINC SULFATE PO SCH ×2 (08:55→21:49)
[2020-11-03] MEDS: VSL#3 PO SCH (08:55)
[2020-11-03] MEDS: VIBRAMYCIN 100 MG in D5W 250 ML IV 250 ML IV SCH ×2 (10:11→22:07)
[2020-11-03] MEDS: MAGIC MOUTHWASH MT PRN (10:13)
[2020-11-03] MEDS: ZITHROMAX INJ 500 MG VIAL 500 MG in NS 250 ML IV 250 ML IV SCH (11:00)
[2020-11-03] MEDS ORDERED: SEROquel TAB 25 mg PO ONE (19:37)
[2020-11-03] MEDS: SNACK - Diabetic Appropriate PO SCH (20:00)
[2020-11-03] MEDS: K-DUR TAB 20 MEQ PO PRN (21:00)
[2020-11-03] MEDS: ARTIFICIAL TEARS DROPS AFFEYE SCH (21:48)
[2020-11-03] MEDS: SEROquel TAB 25 mg PO SCH (22:00)
[2020-11-04] MEDS: ASCORBIC ACID INJ MULTI-DOSE VIAL 1,500 MG in NS 100 ML IV 100 ML IV SCH ×4 (02:17→21:00)
[2020-11-04 04:19] LABS: ABG ALLEN TEST POS; ABG HCO3 35.1 mmol/L (22-26)
[2020-11-04] MEDS: SOLU-Medrol 125 MG VIAL IVP SCH ×3 (05:14→21:00)
[2020-11-04] MEDS: HumuLIN R SUBCUT PRN ×4 (05:34→21:00)
[2020-11-04 05:35] LABS: BASOPHILS # (AUTO) 0.1 X10^3/uL (0.0-0.1); BASOPHILS % (AUTO) 0.4 % (0.2-1.0); HEMATOCRIT 39.3 % (42.0-54.0); HEMOGLOBIN 13.1 g/dL (13.5-18.0); LYMPHOCYTES # (AUTO) 0.2 X10^3/uL (1.3-2.9); LYMPHOCYTES % (AUTO) 1.3 % (21.0-51.0); MEAN CORPUSCULAR HEMOGLOBIN 30.5 pg (27.0-34.0); MEAN CORPUSCULAR HGB CONC 33.2 g/dL (33.0-35.0); MEAN CORPUSCULAR VOLUME 91.8 fL (80.0-100.0); MEAN PLATELET VOLUME 8.5 fL (7.4-11.0); MONOCYTES # (AUTO) 0.4 x10^3/uL (0.3-0.8); MONOCYTES % (AUTO) 2.3 % (0.0-13.0); NEUTROPHILS # (AUTO) 17.2 x10^3/uL (2.2-4.8); PLATELET COUNT 239 X10^3/uL (150.0-450.0); RED BLOOD COUNT 4.28 X10^6/uL (4.7-6.0); RED CELL DISTRIBUTION WIDTH 12.8 % (11.6-16.5); WHITE BLOOD COUNT 17.9 X10^3/uL (3.6-10.0)
[2020-11-04] MEDS: NS 1/2 1000 ML IV 1,000 ML IV SCH ×2 (05:35→16:55)
[2020-11-04 05:51] LABS: ALANINE AMINOTRANSFERASE 41 Units/L (12-78); ALBUMIN 2.2 g/dL (3.4-5.0); ALKALINE PHOSPHATASE 107 Units/L (46-116); ASPARTATE AMINO TRANSFERASE 26 Units/L (15-37); BLOOD UREA NITROGEN 31 mg/dL (7-18); CALCIUM 8.4 mg/dL (8.5-10.1); CARBON DIOXIDE 34.1 mmol/L (21-32); CHLORIDE 107 mmol/L (98-107); COR CA(FOR HYPOALB) 9.8 mg/dL (8.5-10.1); COR NA(FOR HYPERGLY) 150 mmol/L (136-145); CREATININE 1.05 mg/dL (0.70-1.30); SODIUM 145 mmol/L (136-145); TOTAL PROTEIN 5.6 g/dL (6.4-8.2); eGFR NON BLACK RACES > 60 (>60)
--- NOTE | 2020-11-04 06:35 | RAD ---
HISTORYSOBSTUDYCHEST, 1 VIEWCOMPARISONOne day prior.TECHNIQUEAP view of the chestFINDINGSThe cardiac silhouette is stably enlarged. Mediastinal contours appear stable. Left upper extremity PICC line in good position. Subcutaneous emphysema in the neck and pneumomediastinum has mildly improved. Similar appearance of mid and lower lung predominant airspace opacities. No definite pleural effusion or pneumothorax. Left costophrenic sulcus not completely visualized.IMPRESSIONImproved pneumomediastinum and subcutaneous emphysema. Similar appearing bilateral lung infiltrates.Electronically signed by: David Ladd (Nov 04, 2020 06:33:34)
[2020-11-04 06:36] LABS: PLATELET MORPHOLOGY COMMENT NORMAL (NORMAL)
[2020-11-04] MEDS ORDERED: LEXAPRO ONE (08:05)
[2020-11-04] MEDS: LEXAPRO PO SCH (08:34)
[2020-11-04] MEDS: COREG TAB 12.5 MG PO SCH ×2 (08:35→21:00)
[2020-11-04] MEDS: LEVEMIR SC SCH (08:36)
[2020-11-04] MEDS: LIPITOR TAB 80 MG PO SCH (08:38)
[2020-11-04] MEDS: NYSTATIN POWDER TOP SCH ×2 (08:39→21:00)
[2020-11-04] MEDS: LOVENOX INJ 30 MG SYR SC SCH ×2 (08:39→21:00)
[2020-11-04] MEDS: PEPCID TAB 40 MG PO SCH (08:40)
[2020-11-04] MEDS: PROTONIX INJ 40 MG VIAL IVP SCH ×2 (08:41→21:00)
[2020-11-04] MEDS: ROBITUSSIN DM PO SCH ×3 (08:42→16:57)
[2020-11-04] MEDS: VITAMIN A PO SCH (08:43)
[2020-11-04] MEDS: TRICOR TAB 160 MG PO SCH (08:43)
[2020-11-04] MEDS: VITAMIN D3 125 mcg (5,000 UNITS) PO SCH (08:44)
[2020-11-04] MEDS: VSL#3 PO SCH (08:44)
[2020-11-04] MEDS: ZINC SULFATE PO SCH ×2 (08:46→21:00)
[2020-11-04] MEDS: ZESTRIL TAB 5 MG PO SCH ×2 (08:46→21:00)
[2020-11-04] MEDS: VIBRAMYCIN 100 MG in D5W 250 ML IV 250 ML IV SCH ×2 (10:00→22:00)
[2020-11-04] MEDS: DIFLUCAN 200 MG IV PREMIX* 200 MG/100 ML BAG IV SCH (10:00)
[2020-11-04] MEDS: ZITHROMAX INJ 500 MG VIAL 500 MG in NS 250 ML IV 250 ML IV SCH (10:30)
[2020-11-04] MEDS: LASIX IVP SCH (12:00)
[2020-11-04] MEDS: DUONEB 0.5 MG/3 MG (3 mL) NEB SCH ×3 (12:20→21:45)
[2020-11-04] MEDS: SNACK - Diabetic Appropriate PO SCH (20:00)
[2020-11-04] MEDS: ARTIFICIAL TEARS DROPS AFFEYE SCH (21:00)
[2020-11-04] MEDS: SEROquel TAB 25 mg PO SCH (21:00)
[2020-11-04] MEDS: BUTT CREAM (COMPOUND) TOP PRN (22:00)
[2020-11-05] MEDS: ROBITUSSIN DM PO SCH ×4 (00:28→19:25)
[2020-11-05] MEDS: ASCORBIC ACID INJ MULTI-DOSE VIAL 1,500 MG in NS 100 ML IV 100 ML IV SCH ×4 (03:45→21:00)
[2020-11-05] MEDS: NS 1/2 1000 ML IV 1,000 ML IV SCH ×3 (04:00→19:26)
[2020-11-05] MEDS: APRESOLINE INJ 20 MG VIAL IVP PRN (04:30)
[2020-11-05 05:20] LABS: ABG BASE EXCESS 10.1 mmol/L (-2.0-2.0)
[2020-11-05 05:21] LABS: ABG ALLEN TEST POS; ABG HCO3 33.2 mmol/L (22-26)
[2020-11-05] MEDS: DUONEB 0.5 MG/3 MG (3 mL) NEB SCH ×3 (05:22→21:37)
[2020-11-05] MEDS: SOLU-Medrol 125 MG VIAL IVP SCH ×3 (05:24→21:00)
[2020-11-05 05:36] LABS: BASOPHILS % (AUTO) 0.1 % (0.2-1.0); HEMATOCRIT 38.1 % (42.0-54.0); HEMOGLOBIN 12.6 g/dL (13.5-18.0); LYMPHOCYTES # (AUTO) 0.3 X10^3/uL (1.3-2.9); LYMPHOCYTES % (AUTO) 1.4 % (21.0-51.0); MEAN CORPUSCULAR HEMOGLOBIN 30.5 pg (27.0-34.0); MEAN CORPUSCULAR HGB CONC 33.1 g/dL (33.0-35.0); MEAN CORPUSCULAR VOLUME 92.2 fL (80.0-100.0); MEAN PLATELET VOLUME 8.9 fL (7.4-11.0); MONOCYTES # (AUTO) 0.3 x10^3/uL (0.3-0.8); MONOCYTES % (AUTO) 1.5 % (0.0-13.0); NEUTROPHILS # (AUTO) 17.5 x10^3/uL (2.2-4.8); PLATELET COUNT 220 X10^3/uL (150.0-450.0); RED BLOOD COUNT 4.14 X10^6/uL (4.7-6.0)
[2020-11-05 05:51] LABS: ALANINE AMINOTRANSFERASE 49 Units/L (12-78); ALBUMIN 2.1 g/dL (3.4-5.0); ALKALINE PHOSPHATASE 109 Units/L (46-116); ASPARTATE AMINO TRANSFERASE 27 Units/L (15-37); BLOOD UREA NITROGEN 33 mg/dL (7-18); CALCIUM 8.2 mg/dL (8.5-10.1); CARBON DIOXIDE 32.8 mmol/L (21-32); CHLORIDE 106 mmol/L (98-107); COR CA(FOR HYPOALB) 9.7 mg/dL (8.5-10.1); COR NA(FOR HYPERGLY) 149 mmol/L (136-145); CREATININE 1.08 mg/dL (0.70-1.30); SODIUM 144 mmol/L (136-145); TOTAL PROTEIN 5.4 g/dL (6.4-8.2); eGFR NON BLACK RACES > 60 (>60)
[2020-11-05 06:30] LABS: PLATELET MORPHOLOGY COMMENT NORMAL (NORMAL)
[2020-11-05] MEDS: HumuLIN R SUBCUT PRN ×4 (07:05→21:00)
[2020-11-05] MEDS ORDERED: LEXAPRO ONE (09:21)
[2020-11-05] MEDS: LASIX IVP SCH (10:00)
[2020-11-05] MEDS: COREG TAB 12.5 MG PO SCH ×2 (10:00→21:30)
[2020-11-05] MEDS: LEVEMIR SC SCH (10:00)
[2020-11-05] MEDS: LOVENOX INJ 30 MG SYR SC SCH ×2 (10:01→21:00)
[2020-11-05] MEDS: LEXAPRO PO SCH (10:01)
[2020-11-05] MEDS: LIPITOR TAB 80 MG PO SCH (10:01)
[2020-11-05] MEDS: PEPCID TAB 40 MG PO SCH (10:03)
[2020-11-05] MEDS: TRICOR TAB 160 MG PO SCH (10:04)
[2020-11-05] MEDS: PROTONIX INJ 40 MG VIAL IVP SCH ×2 (10:04→21:00)
[2020-11-05] MEDS: VIBRAMYCIN 100 MG in D5W 250 ML IV 250 ML IV SCH ×2 (10:07→22:00)
[2020-11-05] MEDS: VITAMIN A PO SCH (10:07)
[2020-11-05] MEDS: VITAMIN D3 125 mcg (5,000 UNITS) PO SCH (10:07)
[2020-11-05] MEDS: MAGIC MOUTHWASH MT PRN (10:08)
[2020-11-05] MEDS: VSL#3 PO SCH (10:08)
[2020-11-05] MEDS: ZINC SULFATE PO SCH ×2 (10:09→21:00)
[2020-11-05] MEDS: ZESTRIL TAB 5 MG PO SCH ×2 (10:09→21:00)
[2020-11-05] MEDS: ZOFRAN INJ 4 MG VIAL IVP PRN (10:49)
[2020-11-05] MEDS ORDERED: NS 1/2 1000 ML IV 1,000 ML IV ONE (11:31)
[2020-11-05] MEDS: DIFLUCAN 200 MG IV PREMIX* 200 MG/100 ML BAG IV SCH (12:00)
[2020-11-05] MEDS: ZITHROMAX INJ 500 MG VIAL 500 MG in NS 250 ML IV 250 ML IV SCH (13:00)
[2020-11-05] MEDS: NYSTATIN POWDER TOP SCH ×2 (19:25→21:00)
[2020-11-05] MEDS: SEROquel TAB 25 mg PO SCH (21:00)
[2020-11-05] MEDS: ARTIFICIAL TEARS DROPS AFFEYE SCH (21:00)
[2020-11-06] MEDS: SNACK - Diabetic Appropriate PO SCH ×2 (00:05→21:32)
[2020-11-06] MEDS: ROBITUSSIN DM PO SCH ×6 (00:08→21:41)
[2020-11-06] MEDS ORDERED: NS 100 ML IV 100 ML IV ONE (02:56)
[2020-11-06] MEDS: ASCORBIC ACID INJ MULTI-DOSE VIAL 1,500 MG in NS 100 ML IV 100 ML IV SCH ×4 (03:00→21:32)
[2020-11-06] MEDS: DUONEB 0.5 MG/3 MG (3 mL) NEB SCH ×3 (05:35→21:31)
[2020-11-06 05:58] LABS: BASOPHILS % (AUTO) 0 % (0.2-1.0); HEMATOCRIT 37.7 % (42.0-54.0); HEMOGLOBIN 12.8 g/dL (13.5-18.0); LYMPHOCYTES # (AUTO) 0.5 X10^3/uL (1.3-2.9); MEAN CORPUSCULAR HEMOGLOBIN 31.2 pg (27.0-34.0); MEAN CORPUSCULAR HGB CONC 33.9 g/dL (33.0-35.0); MEAN CORPUSCULAR VOLUME 92.1 fL (80.0-100.0); MEAN PLATELET VOLUME 8.7 fL (7.4-11.0); MONOCYTES # (AUTO) 1.1 x10^3/uL (0.3-0.8); MONOCYTES % (AUTO) 4.6 % (0.0-13.0); NEUTROPHILS # (AUTO) 21.7 x10^3/uL (2.2-4.8); NEUTROPHILS % (AUTO) 93.4 % (42.0-75.0); PLATELET COUNT 223 X10^3/uL (150.0-450.0); RED CELL DISTRIBUTION WIDTH 13.1 % (11.6-16.5); WHITE BLOOD COUNT 23.3 X10^3/uL (3.6-10.0)
[2020-11-06 06:01] LABS: ALANINE AMINOTRANSFERASE 49 Units/L (12-78); ALBUMIN 2.1 g/dL (3.4-5.0); ALKALINE PHOSPHATASE 128 Units/L (46-116); ASPARTATE AMINO TRANSFERASE 25 Units/L (15-37); BLOOD UREA NITROGEN 33 mg/dL (7-18); CALCIUM 8.3 mg/dL (8.5-10.1); CARBON DIOXIDE 31.7 mmol/L (21-32); CHLORIDE 108 mmol/L (98-107); COR CA(FOR HYPOALB) 9.8 mg/dL (8.5-10.1); COR NA(FOR HYPERGLY) 149 mmol/L (136-145); CREATININE 1.11 mg/dL (0.70-1.30); SODIUM 146 mmol/L (136-145); TOTAL PROTEIN 5.4 g/dL (6.4-8.2); eGFR NON BLACK RACES > 60 (>60)
[2020-11-06] MEDS: NS 1/2 1000 ML IV 1,000 ML IV SCH ×2 (06:16→21:29)
[2020-11-06] MEDS: SOLU-Medrol 125 MG VIAL IVP SCH ×3 (06:17→21:43)
[2020-11-06] MEDS: HumuLIN R SUBCUT PRN ×4 (06:24→21:44)
[2020-11-06 07:24] LABS: BAND NEUTROPHILS % 1 % (0-10); PLATELET MORPHOLOGY COMMENT NORMAL (NORMAL)
[2020-11-06] MEDS ORDERED: LEXAPRO ONE (07:55)
[2020-11-06] MEDS: LASIX IVP SCH (08:13)
[2020-11-06] MEDS: LEVEMIR SC SCH (08:14)
[2020-11-06] MEDS: PROTONIX INJ 40 MG VIAL IVP SCH ×2 (08:16→21:39)
[2020-11-06] MEDS: LOVENOX INJ 30 MG SYR SC SCH ×2 (08:16→21:33)
[2020-11-06] MEDS: ZINC SULFATE PO SCH ×2 (08:19→21:42)
[2020-11-06] MEDS: VSL#3 PO SCH (08:19)
[2020-11-06] MEDS: COREG TAB 12.5 MG PO SCH ×2 (08:19→21:32)
[2020-11-06] MEDS: VITAMIN D3 125 mcg (5,000 UNITS) PO SCH (08:20)
[2020-11-06] MEDS: LIPITOR TAB 80 MG PO SCH (08:20)
[2020-11-06] MEDS: LEXAPRO PO SCH (08:20)
[2020-11-06] MEDS: ZESTRIL TAB 5 MG PO SCH ×2 (08:21→21:42)
[2020-11-06] MEDS: PEPCID TAB 40 MG PO SCH (08:21)
[2020-11-06] MEDS: TRICOR TAB 160 MG PO SCH (08:21)
[2020-11-06] MEDS: VITAMIN A PO SCH (08:22)
[2020-11-06] MEDS: DIFLUCAN 200 MG IV PREMIX* 200 MG/100 ML BAG IV SCH (10:28)
[2020-11-06] MEDS: NYSTATIN POWDER TOP SCH ×2 (10:50→21:38)
--- NOTE | 2020-11-06 11:05 | RAD ---
HISTORYSOB/ COVID +STUDYCHEST, 1 VIEWCOMPARISONPortable chest November 04, 2020.FINDINGSThe trachea is midline left-sided PICC line is in good position at the junction of the superior vena cava to the right atrium.. The cardiac silhouette is unremarkable . The bilateral left greater than right lower lobe interstitial infiltrates are stable compared to November 04. Pneumomediastinum along the left heart border and diaphragm are unchanged from prior study. A small amount of residual subcutaneous emphysema is seen over the right lower neck and upper chest wall. There is no evidence of pneumothorax. The bony thorax is unremarkable.IMPRESSIONPersistent left greater than right interstitial infiltrates, pneumomediastinum and subcutaneous emphysema all without significant change from November 04, 2020.PICC line is in place unchanged in position.Electronically signed by: JENNIE BECERRA (Nov 06, 2020 11:04:39)
[2020-11-06] MEDS: VIBRAMYCIN 100 MG in D5W 250 ML IV 250 ML IV SCH ×2 (13:21→21:42)
[2020-11-06] MEDS: ZITHROMAX INJ 500 MG VIAL 500 MG in NS 250 ML IV 250 ML IV SCH (14:45)
[2020-11-06] MEDS ORDERED: ACTIVASE CATHFLO IJ ONE (16:40)
[2020-11-06] MEDS: ARTIFICIAL TEARS DROPS AFFEYE SCH (21:29)
[2020-11-06] MEDS: SEROquel TAB 25 mg PO SCH (21:41)
[2020-11-07] MEDS: ASCORBIC ACID INJ MULTI-DOSE VIAL 1,500 MG in NS 100 ML IV 100 ML IV SCH ×4 (03:31→20:13)
[2020-11-07] MEDS: SOLU-Medrol 125 MG VIAL IVP SCH ×3 (05:34→22:00)
[2020-11-07] MEDS: HumuLIN R SUBCUT PRN ×4 (05:48→20:17)
[2020-11-07] MEDS: DUONEB 0.5 MG/3 MG (3 mL) NEB SCH ×3 (06:03→21:43)
[2020-11-07 06:12] LABS: ALANINE AMINOTRANSFERASE 57 Units/L (12-78); ALBUMIN 2.2 g/dL (3.4-5.0); ALKALINE PHOSPHATASE 168 Units/L (46-116); ASPARTATE AMINO TRANSFERASE 22 Units/L (15-37); BLOOD UREA NITROGEN 31 mg/dL (7-18); CALCIUM 8.4 mg/dL (8.5-10.1); CARBON DIOXIDE 33.8 mmol/L (21-32); CHLORIDE 104 mmol/L (98-107); COR CA(FOR HYPOALB) 9.8 mg/dL (8.5-10.1); COR NA(FOR HYPERGLY) 147 mmol/L (136-145); CREATININE 0.92 mg/dL (0.70-1.30); MAGNESIUM 2.1 mg/dL (1.7-2.9); SODIUM 143 mmol/L (136-145); TOTAL PROTEIN 5.4 g/dL (6.4-8.2); eGFR NON BLACK RACES > 60 (>60)
[2020-11-07 06:13] LABS: ABG ALLEN TEST POS; ABG BASE EXCESS 11.6 mmol/L (-2.0-2.0); ABG HCO3 36.6 mmol/L (22-26)
[2020-11-07 06:19] LABS: BASOPHILS # (AUTO) 0.1 X10^3/uL (0.0-0.1); BASOPHILS % (AUTO) 0.3 % (0.2-1.0); HEMATOCRIT 38.3 % (42.0-54.0); HEMOGLOBIN 12.9 g/dL (13.5-18.0); LYMPHOCYTES # (AUTO) 0.3 X10^3/uL (1.3-2.9); LYMPHOCYTES % (AUTO) 1.9 % (21.0-51.0); MEAN CORPUSCULAR HEMOGLOBIN 30.8 pg (27.0-34.0); MEAN CORPUSCULAR HGB CONC 33.6 g/dL (33.0-35.0); MEAN CORPUSCULAR VOLUME 91.9 fL (80.0-100.0); MEAN PLATELET VOLUME 8.8 fL (7.4-11.0); MONOCYTES # (AUTO) 0.3 x10^3/uL (0.3-0.8); MONOCYTES % (AUTO) 1.8 % (0.0-13.0); PLATELET COUNT 164 X10^3/uL (150.0-450.0); RED BLOOD COUNT 4.17 X10^6/uL (4.7-6.0); RED CELL DISTRIBUTION WIDTH 12.8 % (11.6-16.5); WHITE BLOOD COUNT 17.7 X10^3/uL (3.6-10.0)
[2020-11-07 06:52] LABS: BAND NEUTROPHILS % 3 % (0-10)
[2020-11-07 06:53] LABS: PLATELET MORPHOLOGY COMMENT NORMAL (NORMAL)
[2020-11-07] MEDS ORDERED: LEXAPRO ONE (08:07)
[2020-11-07] MEDS: PROTONIX INJ 40 MG VIAL IVP SCH ×2 (08:35→20:15)
[2020-11-07] MEDS: COREG TAB 12.5 MG PO SCH ×2 (08:41→20:14)
[2020-11-07] MEDS: LEVEMIR SC SCH (08:42)
[2020-11-07] MEDS: LASIX IVP SCH (08:42)
[2020-11-07] MEDS: LEXAPRO PO SCH (08:43)
[2020-11-07] MEDS: VITAMIN A PO SCH (08:44)
[2020-11-07] MEDS: VSL#3 PO SCH (08:44)
[2020-11-07] MEDS: VITAMIN D3 125 mcg (5,000 UNITS) PO SCH (08:44)
[2020-11-07] MEDS: LIPITOR TAB 80 MG PO SCH (08:44)
[2020-11-07] MEDS: LOVENOX INJ 30 MG SYR SC SCH ×2 (08:45→20:14)
[2020-11-07] MEDS: ZINC SULFATE PO SCH ×2 (08:47→20:13)
[2020-11-07] MEDS: PEPCID TAB 40 MG PO SCH (08:47)
[2020-11-07] MEDS: ZESTRIL TAB 5 MG PO SCH ×2 (08:47→20:13)
[2020-11-07] MEDS: TRICOR TAB 160 MG PO SCH (08:48)
[2020-11-07] MEDS: ROBITUSSIN DM PO SCH (08:48)
[2020-11-07] MEDS: NYSTATIN POWDER TOP SCH ×2 (08:50→22:00)
[2020-11-07] MEDS: NS 1/2 1000 ML IV 1,000 ML IV SCH ×2 (08:50→20:13)
[2020-11-07] MEDS: VIBRAMYCIN 100 MG in D5W 250 ML IV 250 ML IV SCH ×2 (12:11→20:16)
[2020-11-07] MEDS: DIFLUCAN 200 MG IV PREMIX* 200 MG/100 ML BAG IV SCH (12:13)
[2020-11-07] MEDS ORDERED: NS 250 ML IV 250 ML IV ONE (12:49)
--- NOTE | 2020-11-07 13:01 | PCM.PROG ---
Progress Note Progress Note for Day of Date of Exam: 11/07/20 Subjective Subjective: PT IS A 60 YEAR OLD MALE ADMITTED FOR TREATMENT OF PNEUMONIA DUE TO COVID-19 AND HYPOXIA. THIS MORNING HE APPEARS VERY SLEEPY AND WILL AROUSE WITH VERBAL STIMULI. HE CONTINUES TO HAVE NON-PRODUCTIVE COUGH, SHORTNESS OF BREATH, AND GENERALIZED WEAKNESS. HE IS CURRENTLY ON THE HEATED HIGH FLOW WITH FIO2 82%. HIS OXYGEN SATURATIONS HAVE BEEN 87-92%. CONVALESCENT PLASMA HAS BEEN ORDERED, BUT HAS NOT ARRIVED AT THIS TIME. ON EXAMINATION, HEART IS REGULAR IN RATE AND RHYTHM. BILATERAL LUNGS ARE NOTED WITH RALES THROUGHOUT. ABDOMEN IS ROUND, SOFT, AND NON-TENDER WITH NORMAL BOWEL SOUNDS NOTED IN ALL QUADRANTS. HIS VITALS THIS MORNING ARE: 98.7-81-23-89% ON HHF, 172/82. LABS/IMAGING WERE OBTAINED AND INCLUDE THE FOLLOWING: WBC 21.2>17.7, HGB 12.9, PLT 164, NA 143, K 4.0, CREATININE 0.92, GLUCOSE 278, AST 22, ALT 57, ALP 168, ABG WAS OBTAINED AND REVEALED: PH 7.49, PC02 48, P02 53, HC03 36, P02 90, FI02 70%. A CHEST XRAY WAS OBTAINED AND REVEALED: Persistent left greater than right interstitial infiltrates, pneumomediastinum and subcutaneous emphysema all without significant change from November 04, 2020. PICC line is in place unchanged in position. HE HAS RECEIVED A COURSE OF REMDESIVIR. WILL CONTINUE WITH IV FLUIDS, IV ANTIBIOTICS: AZITHROMYCIN AND DOXYCYCLINE, IV SOLUMEDROL, BRONCHODILATORS. DISCONTINUE SEROQUEL TONIGHT TO SEE IF CHANGES PATIENT'S DROWSINESS. OTHERWISE, CONTINUE WITH CURRENT PLAN OF CARE, WEAN SUPPLEMENTAL OXYGEN TOLERATED. PLAN TO FOLLOW UP WITH AM LABS, XRAY, ABG IN THE MORNING. TIME SPENT ON CLINICAL ASSESSMENT, REVIEWING LABS AND IMAGING, DECISION MAKING, AND DOCUMENTATION GREATER THAN 75 MINUTES. Past Medical Family Social History Past Med/Fam/Surg Hx: No changes since H&P Allergies: Allergies No Known Drug Allergies Allergy (Verified 10/19/20 06:47) Review of Systems ROS: No change since H&P Vital Signs and I&O's Vital Signs: Temperature 98.7 F Pulse Rate [Apical] 81 Pulse Rate 86 Respiratory Rate 23 Blood Pressure [Right Arm] 172/82 Blood Pressure [Right Radial 162/77 Artery] Blood Pressure [Left Arm] 189/98 Blood Pressure 170/81 O2 Sat by Pulse Oximetry 89 Intake and Output: Intake & Output 11/04/20 11/05/20 11/06/20 11/07/20 23:59 23:59 23:59 23:59 Intake Total 2974 / 2974 3540 / 3540 3736 / 3736 410 / 410 Output Total 4275 / 4275 2400 / 2400 1725 / 1725 Balance -1301 / -1301 1140 / 1140 2010 410 / 410 Physical Exam Oriented: Normal Eyes: Normal Ear: Normal Nose: Normal Throat: Normal Respiratory: Diminished Cardiovascular: Normal : Normal Auscultation: Bowel Sounds: Normal Tenderness: Normal Skin: Decreased [place]urgur Musculoskeletal: Normal Psychiatric: Anxiety Affect: Anxious Speech Pattern: Unclear Laboratory and Diagnostics Result Diagrams: 11/07/20 05:10 11/07/20 05:10 Labs: 10/28/20 14:45 Stool Stool Culture - Final 10/28/20 14:45 Stool - Final 10/19/20 06:50 Blood Blood Culture - Final 10/19/20 06:50 Blood Blood Culture - Final 10/20/20 13:30 Urine,Clean Catch Urine Culture - Final 10/21/20 04:05 Sputum - Expectorated Sputum Sputum Culture - Final 10/21/20 04:05 Sputum - Expectorated Sputum - Final Laboratory WBC 17.7 X10^3/uL (3.6-10.0) H 11/07/20 05:10 RBC 4.17 X10^6/uL (4.7-6.0) L 11/07/20 05:10 Hgb 12.9 g/dL (13.5-18.0) L 11/07/20 05:10 Hct 38.3 % (42.0-54.0) L 11/07/20 05:10 MCV 91.9 fL (80.0-100.0) 11/07/20 05:10 MCH 30.8 pg (27.0-34.0) 11/07/20 05:10 MCHC 33.6 g/dL (33.0-35.0) 11/07/20 05:10 RDW 12.8 % (11.6-16.5) 11/07/20 05:10 Plt Count 164 X10^3/uL (150.0-450.0) 11/07/20 05:10 Plt Count Comment Adequate (ADEQUATE) 11/07/20 05:10 MPV 8.8 fL (7.4-11.0) 11/07/20 05:10 Neut % (Auto) 96.0 % (42.0-75.0) H 11/07/20 05:10 Lymph % (Auto) 1.9 % (21.0-51.0) L 11/07/20 05:10 [place] % (Auto) 1.8 % (0.0-13.0) 11/07/20 05:10 Eos % (Auto) 0.0 % (0.9-2.9) L 11/07/20 05:10 Baso % (Auto) 0.3 % (0.2-1.0) 11/07/20 05:10 Neut # (Auto) 17.0 x10^3/uL (2.2-4.8) H 11/07/20 05:10 Lymph # (Auto) 0.3 X10^3/uL (1.3-2.9) L 11/07/20 05:10 [place] # (Auto) 0.3 x10^3/uL (0.3-0.8) 11/07/20 05:10 Eos # (Auto) 0.0 x10^3/uL (0.0-0.2) 11/07/20 05:10 Baso # (Auto) 0.1 X10^3/uL (0.0-0.1) 11/07/20 05:10 Absolute Nucleated RBC 0.1 /100WBC 11/07/20 05:10 Total Counted 100 11/07/20 05:10 Neutrophils % (Manual) 91 % (39-76) H 11/07/20 05:10 Band Neutrophils % 3 % (0-10) 11/07/20 05:10 Lymphocytes % (Manual) 5 % (13-43) L 11/07/20 05:10 Monocytes % (Manual) 1 % (4-9) L 11/07/20 05:10 Basophils % (Manual) 1 % (0-1) 10/24/20 06:05 Myelocytes % 4 10/24/20 06:05 Plt Clumps, EDTA Few 10/23/20 05:35 Plt Morphology Comment Normal (NORMAL) 11/07/20 05:10 RBC Morphology Normal (NORMAL) 11/07/20 05:10 PT 16.1 SECONDS (11.8-14.3) 10/19/20 06:50 INR Target Range - 10/19/20 06:50 INR 1.33 (0.8-1.3) H 10/19/20 06:50 APTT 31.5 SECONDS (22.9-36.5) 10/19/20 06:50 PTT Comment - 10/19/20 06:50 D-Dimer 1.26 ug/ml (0.0-0.57) H* 11/04/20 05:05 Sample Site Lr 11/07/20 06:05 ABG pH 7.490 (7.35-7.45) H 11/07/20 06:05 ABG pCO2 48.0 mmHg (35.0-45.0) H 11/07/20 06:05 ABG pO2 53.0 mmHg (80.0-100.0) L 11/07/20 06:05 ABG HCO3 36.6 mmol/L (22-26) H* 11/07/20 06:05 ABG O2 Saturation 90.0 % (90-100) 11/07/20 06:05 ABG Base Excess 11.6 mmol/L (-2.0-2.0) H 11/07/20 06:05 Abad Test Pos 11/07/20 06:05 A-a Gradient 386.0 mmHg 11/07/20 06:05 FiO2 70.0 11/07/20 06:05 Blood Gas Comments Gail well, mf 11/07/20 06:05 Sodium 143 mmol/L (136-145) 11/07/20 05:10 Corrected Sodium 147 mmol/L (136-145) H 11/07/20 05:10 Potassium 4.0 mmol/L (3.5-5.1) 11/07/20 05:10 Chloride 104 mmol/L (98-107) 11/07/20 05:10 Carbon Dioxide 33.8 mmol/L (21-32) H 11/07/20 05:10 BUN 31 mg/dL (7-18) H 11/07/20 05:10 Creatinine 0.92 mg/dL (0.70-1.30) 11/07/20 05:10 Est GFR (MDRD) Af Amer > 60 (>60) 11/07/20 05:10 Est GFR (MDRD) Non-Af > 60 (>60) 11/07/20 05:10 Glucose 278 mg/dL (65-99) H 11/07/20 05:10 POC Glucose (mg/dL) 286 mg/dL (65-99) H 11/07/20 12:14 Hemoglobin A1c 6.7 % 10/21/20 08:40 Lactic Acid 1.4 mmol/L (0.4-2.0) 10/20/20 13:43 Calcium 8.4 mg/dL (8.5-10.1) L 11/07/20 05:10 Corrected Calcium 9.8 mg/dL (8.5-10.1) 11/07/20 05:10 Magnesium 2.1 mg/dL (1.7-2.9) 11/07/20 05:10 Ferritin 779 ng/mL (26-388) H 10/19/20 06:50 Total Bilirubin 0.70 mg/dL (0.2-1.0) 11/07/20 05:10 AST 22 Units/L (15-37) 11/07/20 05:10 ALT 57 Units/L (12-78) 11/07/20 05:10 Alkaline Phosphatase 168 Units/L (46-116) H 11/07/20 05:10 Creatine Kinase 120 Units/L (39-308) 10/21/20 08:40 CK-MB (CK-2) < 1.0 ng/mL (0-4.0) 10/21/20 08:40 CK/CKMB % Calc 0.8 % (<4) 10/21/20 08:40 Troponin I 0.04 ng/mL (0-1.5) 10/21/20 08:40 C-Reactive Protein 2.50 mg/L (0-3.0) 11/04/20 05:00 B-Natriuretic Peptide 214 pg/mL (0-79) H 11/04/20 05:00 Total Protein 5.4 g/dL (6.4-8.2) L 11/07/20 05:10 Albumin 2.2 g/dL (3.4-5.0) L 11/07/20 05:10 Globulin 3.2 g/dL (2.5-4.5) 11/07/20 05:10 Albumin/Globulin Ratio 0.7 Ratio (1.1-2.1) L 11/07/20 05:10 Prealbumin 17.7 mg/dL (18-35.7) L 11/01/20 04:35 Specimen Type Clean catch urine 10/20/20 13:30 Urine Color Yellow (YELLOW) 10/20/20 13:30 Urine Appearance Hazy (CLEAR) 10/20/20 13:30 Urine pH 5.0 (5.0 - 8.0) 10/20/20 13:30 Ur Specific [place] 1.020 (1.000-1.030) 10/20/20 13:30 Urine Protein 2+ (NEGATIVE) 10/20/20 13:30 Urine Glucose (UA) 3+ (NEGATIVE) 10/20/20 13:30 Urine Ketones Negative (NEGATIVE) 10/20/20 13:30 Urine Occult Blood 1+ (NEGATIVE) 10/20/20 13:30 Urine Nitrite Negative (NEGATIVE) 10/20/20 13:30 Urine Bilirubin Negative (NEGATIVE) 10/20/20 13:30 Urine Urobilinogen Normal (NORMAL) 10/20/20 13:30 Ur Leukocyte Esterase Negative (NEGATIVE) 10/20/20 13:30 Urine RBC 0-2 /HPF (0-3) 10/20/20 13:30 Urine WBC 0-2 /HPF (0-5) 10/20/20 13:30 Ur Squamous Epith Cells Rare /HPF (NEGATIVE) 10/20/20 13:30 Amorphous Sediment 1+ /HPF (NEGATIVE) 10/20/20 13:30 Urine Bacteria 1+ /HPF (NEGATIVE) 10/20/20 13:30 Urine Mucus Few /HPF (NEGATIVE) 10/20/20 13:30 Ur Culture Indicated? Yes/culture set up 10/20/20 13:30 SARS CoV-2 RNA Rapid HARINDER Positive (NEGATIVE) A 10/19/20 12:28 Miscellaneous Test Covid 19 10/29/20 17:00 Blood Type B POSITIVE 10/21/20 08:40 Plan (1) Pneumonia due to COVID-19 virus: Status: Acute Plan: BIPAP, IV FLUIDS, IV ANTIBIOTICS, NEB TS, CONTINUE CURRENT PLAN OF CARE, CONTINUE TO MONITOR. (2) Hypoxia: Status: Acute
[2020-11-07] MEDS: ZOFRAN INJ 4 MG VIAL IVP PRN (19:28)
[2020-11-07] MEDS: ARTIFICIAL TEARS DROPS AFFEYE SCH ×2 (20:12→22:01)
[2020-11-07] MEDS: SNACK - Diabetic Appropriate PO SCH (20:12)
[2020-11-07] MEDS: ZITHROMAX INJ 500 MG VIAL 500 MG in NS 250 ML IV 250 ML IV SCH (20:15)
[2020-11-07] MEDS ORDERED: NS 1/2 1000 ML IV 1,000 ML IV ONE (20:54)
[2020-11-08] MEDS: ASCORBIC ACID INJ MULTI-DOSE VIAL 1,500 MG in NS 100 ML IV 100 ML IV SCH ×4 (02:40→20:03)
[2020-11-08] MEDS: SOLU-Medrol 125 MG VIAL IVP SCH ×3 (05:05→21:22)
[2020-11-08] MEDS: DUONEB 0.5 MG/3 MG (3 mL) NEB SCH ×3 (05:35→21:29)
[2020-11-08] MEDS: HumuLIN R SUBCUT PRN ×4 (06:04→20:06)
[2020-11-08 06:08] LABS: ALANINE AMINOTRANSFERASE 57 Units/L (12-78); ALBUMIN 2.2 g/dL (3.4-5.0); ALKALINE PHOSPHATASE 111 Units/L (46-116); ASPARTATE AMINO TRANSFERASE 28 Units/L (15-37); BLOOD UREA NITROGEN 37 mg/dL (7-18); CALCIUM 8.6 mg/dL (8.5-10.1); CARBON DIOXIDE 33.1 mmol/L (21-32); CHLORIDE 105 mmol/L (98-107); COR NA(FOR HYPERGLY) 148 mmol/L (136-145); CREATININE 1.02 mg/dL (0.70-1.30); SODIUM 144 mmol/L (136-145); TOTAL PROTEIN 5.4 g/dL (6.4-8.2); eGFR NON BLACK RACES > 60 (>60)
[2020-11-08 06:13] LABS: BASOPHILS % (AUTO) 0.2 % (0.2-1.0); HEMATOCRIT 37.8 % (42.0-54.0); HEMOGLOBIN 12.7 g/dL (13.5-18.0); LYMPHOCYTES # (AUTO) 0.3 X10^3/uL (1.3-2.9); LYMPHOCYTES % (AUTO) 1.7 % (21.0-51.0); MEAN CORPUSCULAR HGB CONC 33.5 g/dL (33.0-35.0); MEAN CORPUSCULAR VOLUME 92.6 fL (80.0-100.0); MEAN PLATELET VOLUME 8.7 fL (7.4-11.0); MONOCYTES # (AUTO) 0.5 x10^3/uL (0.3-0.8); MONOCYTES % (AUTO) 2.7 % (0.0-13.0); NEUTROPHILS # (AUTO) 19.5 x10^3/uL (2.2-4.8); NEUTROPHILS % (AUTO) 95.4 % (42.0-75.0); PLATELET COUNT 159 X10^3/uL (150.0-450.0); RED BLOOD COUNT 4.08 X10^6/uL (4.7-6.0); WHITE BLOOD COUNT 20.4 X10^3/uL (3.6-10.0)
--- NOTE | 2020-11-08 06:15 | RAD ---
HISTORYHypoxia pneumoniaSTUDYPortable AP [id number]/2021FINDINGSThere is little or no significant change identified. Stable cardiomegaly with extrapulmonary air in subcutaneous tissues and mediastinum. Persistent airspace disease bilaterally. No pneumothorax or large pleural effusion. Stable position of left PICC.IMPRESSIONNo change since 11/06/2020.Electronically signed by: KLEBER LONDON (Nov 08, 2020 06:13:28)
[2020-11-08 07:40] LABS: PLATELET MORPHOLOGY COMMENT NORMAL (NORMAL)
[2020-11-08 07:43] LABS: BAND NEUTROPHILS % 4 % (0-10)
[2020-11-08] MEDS ORDERED: LEXAPRO ONE (07:53)
[2020-11-08] MEDS: ZINC SULFATE PO SCH ×2 (08:44→20:05)
[2020-11-08] MEDS: COREG TAB 12.5 MG PO SCH ×2 (08:44→20:03)
[2020-11-08] MEDS: LEXAPRO PO SCH (08:45)
[2020-11-08] MEDS: LASIX IVP SCH (08:46)
[2020-11-08] MEDS: ZESTRIL TAB 5 MG PO SCH ×2 (08:47→20:05)
[2020-11-08] MEDS: TRICOR TAB 160 MG PO SCH (08:47)
[2020-11-08] MEDS: LIPITOR TAB 80 MG PO SCH (08:47)
[2020-11-08] MEDS: VITAMIN D3 125 mcg (5,000 UNITS) PO SCH (08:48)
[2020-11-08] MEDS: PEPCID TAB 40 MG PO SCH (08:48)
[2020-11-08] MEDS: VSL#3 PO SCH (08:48)
[2020-11-08] MEDS: VIBRAMYCIN 100 MG in D5W 250 ML IV 250 ML IV SCH ×2 (08:49→20:05)
[2020-11-08] MEDS: PROTONIX INJ 40 MG VIAL IVP SCH ×2 (08:50→20:04)
[2020-11-08] MEDS: LOVENOX INJ 30 MG SYR SC SCH ×2 (08:50→20:03)
[2020-11-08] MEDS: VITAMIN A PO SCH (08:50)
[2020-11-08] MEDS: LEVEMIR SC SCH (08:51)
[2020-11-08] MEDS: DIFLUCAN 200 MG IV PREMIX* 200 MG/100 ML BAG IV SCH (08:52)
[2020-11-08] MEDS: NS 1/2 1000 ML IV 1,000 ML IV SCH ×2 (08:52→21:22)
[2020-11-08] MEDS: NYSTATIN POWDER TOP SCH ×2 (08:52→20:04)
--- NOTE | 2020-11-08 11:11 | PCM.PROG ---
Progress Note Progress Note for Day of Date of Exam: 11/08/20 Subjective Subjective: PT IS A 60 YEAR OLD MALE ADMITTED FOR TREATMENT OF PNEUMONIA DUE TO COVID-19 AND HYPOXIA. THIS MORNING HE IS MORE ALERT THAN YESTERDAY, LAYING UPRIGHT IN BED. HIS SEROQUEL WAS DISCONTINUED THAT MAY HAVE CONTRIBUTED TO HIS DROWSINESS BEFORE. HE DOES CONTINUE TO HAVE NON-PRODUCTIVE COUGH, SHORTNESS OF BREATH, AND GENERALIZED WEAKNESS. NO ACUTE EVENTS OVERNIGHT. HE IS REMAINS ON HEATED HIGH FLOW WITH FIO2 82%. HIS OXYGEN SATURATIONS HAVE BEEN 87-92%. CONVALESCENT PLASMA HAS BEEN ORDERED, BUT HAS NOT ARRIVED AT THIS TIME. ON EXAMINATION, HEART IS REGULAR IN RATE AND RHYTHM. BILATERAL LUNGS ARE NOTED WITH RALES THROUGHOUT. ABDOMEN IS ROUND, SOFT, AND NON-TENDER WITH NORMAL BOWEL SOUNDS NOTED IN ALL QUADRANTS. HIS VITALS THIS MORNING ARE: 98.7-92-22-88% ON HHF, 142/74. LABS/IMAGING WERE OBTAINED AND INCLUDE THE FOLLOWING: WBC 20, HGB 12.7, PLT 159, NA 144, K 3.9, CREATININE 1.02, GLUCOSE 283, ABG WAS OBTAINED AND REVEALED: PH 7.49, PC02 48, P02 53, HC03 36, P02 90, FI02 70%. A CHEST XRAY WAS OBTAINED AND REVEALED: There is little or no significant change identified. Stable cardiomegaly with extrapulmonary air in subcutaneous tissues and mediastinum. Persistent airspace disease bilaterally. No pneumothorax or large pleural effusion. Stable position of left PICC. HE HAS RECEIVED A COURSE OF REMDESIVIR. CONTINUE CURRENT TREATMENT PLAN: IV FLUIDS, IV ANTIBIOTICS: AZITHROMYCIN AND DOXYCYCLINE, IV SOLUMEDROL, BRONCHODILATORS. WEAN SUPPLEMENTAL OXYGEN TOLERATED. PLAN TO FOLLOW UP WITH AM LABS, XRAY, ABG IN THE MORNING. TIME SPENT ON CLINICAL ASSESSMENT, REVIEWING LABS AND IMAGING, DECISION MAKING, AND DOCUMENTATION GREATER THAN 75 MINUTES. Past Medical Family Social History Past Med/Fam/Surg Hx: No changes since H&P Allergies: Allergies No Known Drug Allergies Allergy (Verified 10/19/20 06:47) Review of Systems ROS: No change since H&P Vital Signs and I&O's Vital Signs: Temperature 98.2 F Pulse Rate [Apical] 92 Pulse Rate 82 Respiratory Rate 22 Blood Pressure [Right Arm] 142/74 Blood Pressure [Right Radial 162/77 Artery] Blood Pressure [Left Arm] 189/98 Blood Pressure 170/81 O2 Sat by Pulse Oximetry 88 Intake and Output: Intake & Output 11/05/20 11/06/20 11/07/20 11/08/20 23:59 23:59 23:59 23:59 Intake Total 3540 / 3540 3736 / 3736 3080 / 3080 546 / 546 Output Total 2400 / 2400 1725 / 1725 950 / 950 Balance 1140 / 1140 2010 2130 / 2130 546 / 546 Physical Exam Oriented: Normal Eyes: Normal Ear: Normal Nose: Normal Throat: Normal Respiratory: Diminished Cardiovascular: Normal : Normal Auscultation: Bowel Sounds: Normal Tenderness: Normal Skin: Decreased Turgur Musculoskeletal: Normal Psychiatric: Anxiety Affect: Anxious Speech Pattern: Unclear and Delayed Laboratory and Diagnostics Result Diagrams: 11/08/20 04:52 11/08/20 04:52 Labs: 10/28/20 14:45 Stool Stool Culture - Final 10/28/20 14:45 Stool - Final 10/19/20 06:50 Blood Blood Culture - Final 10/19/20 06:50 Blood Blood Culture - Final 10/20/20 13:30 Urine,Clean Catch Urine Culture - Final 10/21/20 04:05 Sputum - Expectorated Sputum Sputum Culture - Final 10/21/20 04:05 Sputum - Expectorated Sputum - Final Laboratory WBC 20.4 X10^3/uL (3.6-10.0) H 11/08/20 04:52 RBC 4.08 X10^6/uL (4.7-6.0) L 11/08/20 04:52 Hgb 12.7 g/dL (13.5-18.0) L 11/08/20 04:52 Hct 37.8 % (42.0-54.0) L 11/08/20 04:52 MCV 92.6 fL (80.0-100.0) 11/08/20 04:52 MCH 31.0 pg (27.0-34.0) 11/08/20 04:52 MCHC 33.5 g/dL (33.0-35.0) 11/08/20 04:52 RDW 13.0 % (11.6-16.5) 11/08/20 04:52 Plt Count 159 X10^3/uL (150.0-450.0) 11/08/20 04:52 Plt Count Comment Adequate (ADEQUATE) 11/08/20 04:52 MPV 8.7 fL (7.4-11.0) 11/08/20 04:52 Neut % (Auto) 95.4 % (42.0-75.0) H 11/08/20 04:52 Lymph % (Auto) 1.7 % (21.0-51.0) L 11/08/20 04:52 [place] % (Auto) 2.7 % (0.0-13.0) 11/08/20 04:52 Eos % (Auto) 0.0 % (0.9-2.9) L 11/08/20 04:52 Baso % (Auto) 0.2 % (0.2-1.0) 11/08/20 04:52 Neut # (Auto) 19.5 x10^3/uL (2.2-4.8) H 11/08/20 04:52 Lymph # (Auto) 0.3 X10^3/uL (1.3-2.9) L 11/08/20 04:52 [place] # (Auto) 0.5 x10^3/uL (0.3-0.8) 11/08/20 04:52 Eos # (Auto) 0.0 x10^3/uL (0.0-0.2) 11/08/20 04:52 Baso # (Auto) 0.0 X10^3/uL (0.0-0.1) 11/08/20 04:52 Absolute Nucleated RBC 0.0 /100WBC 11/08/20 04:52 Total Counted 100 11/08/20 04:52 Neutrophils % (Manual) 93 % (39-76) H 11/08/20 04:52 Band Neutrophils % 4 % (0-10) 11/08/20 04:52 Lymphocytes % (Manual) 1 % (13-43) L 11/08/20 04:52 Monocytes % (Manual) 2 % (4-9) L 11/08/20 04:52 Basophils % (Manual) 1 % (0-1) 10/24/20 06:05 Myelocytes % 4 10/24/20 06:05 Plt Clumps, EDTA Few 10/23/20 05:35 Plt Morphology Comment Normal (NORMAL) 11/08/20 04:52 RBC Morphology Normal (NORMAL) 11/08/20 04:52 PT 16.1 SECONDS (11.8-14.3) 10/19/20 06:50 INR Target Range - 10/19/20 06:50 INR 1.33 (0.8-1.3) H 10/19/20 06:50 APTT 31.5 SECONDS (22.9-36.5) 10/19/20 06:50 PTT Comment - 10/19/20 06:50 D-Dimer 1.26 ug/ml (0.0-0.57) H* 11/04/20 05:05 Sample Site Lr 11/07/20 06:05 ABG pH 7.490 (7.35-7.45) H 11/07/20 06:05 ABG pCO2 48.0 mmHg (35.0-45.0) H 11/07/20 06:05 ABG pO2 53.0 mmHg (80.0-100.0) L 11/07/20 06:05 ABG HCO3 36.6 mmol/L (22-26) H* 11/07/20 06:05 ABG O2 Saturation 90.0 % (90-100) 11/07/20 06:05 ABG Base Excess 11.6 mmol/L (-2.0-2.0) H 11/07/20 06:05 Abad Test Pos 11/07/20 06:05 A-a Gradient 386.0 mmHg 11/07/20 06:05 FiO2 70.0 11/07/20 06:05 Blood Gas Comments Gail effie, mf 11/07/20 06:05 Sodium 144 mmol/L (136-145) 11/08/20 04:52 Corrected Sodium 148 mmol/L (136-145) H 11/08/20 04:52 Potassium 3.9 mmol/L (3.5-5.1) 11/08/20 04:52 Chloride 105 mmol/L (98-107) 11/08/20 04:52 Carbon Dioxide 33.1 mmol/L (21-32) H 11/08/20 04:52 BUN 37 mg/dL (7-18) H 11/08/20 04:52 Creatinine 1.02 mg/dL (0.70-1.30) 11/08/20 04:52 Est GFR (MDRD) Af Amer > 60 (>60) 11/08/20 04:52 Est GFR (MDRD) Non-Af > 60 (>60) 11/08/20 04:52 Glucose 283 mg/dL (65-99) H 11/08/20 04:52 POC Glucose (mg/dL) 249 mg/dL (65-99) H 11/08/20 11:03 Hemoglobin A1c 6.7 % 10/21/20 08:40 Lactic Acid 1.4 mmol/L (0.4-2.0) 10/20/20 13:43 Calcium 8.6 mg/dL (8.5-10.1) 11/08/20 04:52 Corrected Calcium 10.0 mg/dL (8.5-10.1) 11/08/20 04:52 Magnesium 2.1 mg/dL (1.7-2.9) 11/07/20 05:10 Ferritin 779 ng/mL (26-388) H 10/19/20 06:50 Total Bilirubin 0.60 mg/dL (0.2-1.0) 11/08/20 04:52 AST 28 Units/L (15-37) 11/08/20 04:52 ALT 57 Units/L (12-78) 11/08/20 04:52 Alkaline Phosphatase 111 Units/L (46-116) 11/08/20 04:52 Creatine Kinase 120 Units/L (39-308) 10/21/20 08:40 CK-MB (CK-2) < 1.0 ng/mL (0-4.0) 10/21/20 08:40 CK/CKMB % Calc 0.8 % (<4) 10/21/20 08:40 Troponin I 0.04 ng/mL (0-1.5) 10/21/20 08:40 C-Reactive Protein 2.50 mg/L (0-3.0) 11/04/20 05:00 B-Natriuretic Peptide 214 pg/mL (0-79) H 11/04/20 05:00 Total Protein 5.4 g/dL (6.4-8.2) L 11/08/20 04:52 Albumin 2.2 g/dL (3.4-5.0) L 11/08/20 04:52 Globulin 3.2 g/dL (2.5-4.5) 11/08/20 04:52 Albumin/Globulin Ratio 0.7 Ratio (1.1-2.1) L 11/08/20 04:52 Prealbumin 17.7 mg/dL (18-35.7) L 11/01/20 04:35 Specimen Type Clean catch urine 10/20/20 13:30 Urine Color Yellow (YELLOW) 10/20/20 13:30 Urine Appearance Hazy (CLEAR) 10/20/20 13:30 Urine pH 5.0 (5.0 - 8.0) 10/20/20 13:30 Ur Specific [place] 1.020 (1.000-1.030) 10/20/20 13:30 Urine Protein 2+ (NEGATIVE) 10/20/20 13:30 Urine Glucose (UA) 3+ (NEGATIVE) 10/20/20 13:30 Urine Ketones Negative (NEGATIVE) 10/20/20 13:30 Urine Occult Blood 1+ (NEGATIVE) 10/20/20 13:30 Urine Nitrite Negative (NEGATIVE) 10/20/20 13:30 Urine Bilirubin Negative (NEGATIVE) 10/20/20 13:30 Urine Urobilinogen Normal (NORMAL) 10/20/20 13:30 Ur Leukocyte Esterase Negative (NEGATIVE) 10/20/20 13:30 Urine RBC 0-2 /HPF (0-3) 10/20/20 13:30 Urine WBC 0-2 /HPF (0-5) 10/20/20 13:30 Ur Squamous Epith Cells Rare /HPF (NEGATIVE) 10/20/20 13:30 Amorphous Sediment 1+ /HPF (NEGATIVE) 10/20/20 13:30 Urine Bacteria 1+ /HPF (NEGATIVE) 10/20/20 13:30 Urine Mucus Few /HPF (NEGATIVE) 10/20/20 13:30 Ur Culture Indicated? Yes/culture set up 10/20/20 13:30 SARS CoV-2 RNA Rapid HARINDER Positive (NEGATIVE) A 10/19/20 12:28 Miscellaneous Test Covid 19 10/29/20 17:00 Blood Type B POSITIVE 10/21/20 08:40 Plan (1) Pneumonia due to COVID-19 virus: Status: Acute Plan: BIPAP, IV FLUIDS, IV ANTIBIOTICS, NEB TS, CONTINUE CURRENT PLAN OF CARE, CONTINUE TO MONITOR. (2) Hypoxia: Status: Acute
[2020-11-08] MEDS ORDERED: NYSTATIN SUSP PO PRN (13:57)
[2020-11-08] MEDS: SNACK - Diabetic Appropriate PO SCH (20:03)
[2020-11-08] MEDS: ARTIFICIAL TEARS DROPS AFFEYE SCH (20:03)
[2020-11-08] MEDS: ZITHROMAX INJ 500 MG VIAL 500 MG in NS 250 ML IV 250 ML IV SCH (20:05)
[2020-11-08] MEDS ORDERED: NS 500 ML IV 500 ML IV PRN (22:32)
[2020-11-09] MEDS: ASCORBIC ACID INJ MULTI-DOSE VIAL 1,500 MG in NS 100 ML IV 100 ML IV SCH ×4 (02:25→21:56)
[2020-11-09] MEDS: SOLU-Medrol 125 MG VIAL IVP SCH ×3 (05:30→22:00)
[2020-11-09] MEDS: HumuLIN R SUBCUT PRN ×3 (06:01→21:00)
[2020-11-09 06:09] LABS: ABG BASE EXCESS 15.6 mmol/L (-2.0-2.0)
[2020-11-09 06:10] LABS: ABG ALLEN TEST POS; ABG HCO3 41.7 mmol/L (22-26)
[2020-11-09] MEDS: DUONEB 0.5 MG/3 MG (3 mL) NEB SCH ×3 (06:33→20:28)
[2020-11-09 06:48] LABS: BASOPHILS % (AUTO) 0.2 % (0.2-1.0); HEMATOCRIT 36.7 % (42.0-54.0); HEMOGLOBIN 12.3 g/dL (13.5-18.0); LYMPHOCYTES # (AUTO) 0.4 X10^3/uL (1.3-2.9); LYMPHOCYTES % (AUTO) 2.5 % (21.0-51.0); MEAN CORPUSCULAR HEMOGLOBIN 30.6 pg (27.0-34.0); MEAN CORPUSCULAR HGB CONC 33.5 g/dL (33.0-35.0); MEAN CORPUSCULAR VOLUME 91.3 fL (80.0-100.0); MEAN PLATELET VOLUME 8.7 fL (7.4-11.0); MONOCYTES # (AUTO) 0.8 x10^3/uL (0.3-0.8); MONOCYTES % (AUTO) 4.7 % (0.0-13.0); NEUTROPHILS # (AUTO) 16.6 x10^3/uL (2.2-4.8); NEUTROPHILS % (AUTO) 92.6 % (42.0-75.0); PLATELET COUNT 153 X10^3/uL (150.0-450.0); RED BLOOD COUNT 4.02 X10^6/uL (4.7-6.0); RED CELL DISTRIBUTION WIDTH 13.1 % (11.6-16.5); WHITE BLOOD COUNT 17.9 X10^3/uL (3.6-10.0)
[2020-11-09 07:03] LABS: ALANINE AMINOTRANSFERASE 58 Units/L (12-78); ALBUMIN 2.1 g/dL (3.4-5.0); ALKALINE PHOSPHATASE 104 Units/L (46-116); ASPARTATE AMINO TRANSFERASE 32 Units/L (15-37); BLOOD UREA NITROGEN 34 mg/dL (7-18); CALCIUM 8.1 mg/dL (8.5-10.1); CARBON DIOXIDE 35.2 mmol/L (21-32); CHLORIDE 105 mmol/L (98-107); COR CA(FOR HYPOALB) 9.6 mg/dL (8.5-10.1); COR NA(FOR HYPERGLY) 147 mmol/L (136-145); CREATININE 0.85 mg/dL (0.70-1.30); SODIUM 144 mmol/L (136-145); TOTAL PROTEIN 5.2 g/dL (6.4-8.2); eGFR NON BLACK RACES > 60 (>60)
[2020-11-09] MEDS ORDERED: LEXAPRO ONE (07:34)
[2020-11-09 07:37] LABS: PLATELET MORPHOLOGY COMMENT NORMAL (NORMAL)
[2020-11-09] MEDS: LEVEMIR SC SCH (08:26)
[2020-11-09] MEDS: LOVENOX INJ 30 MG SYR SC SCH ×2 (08:27→21:57)
[2020-11-09] MEDS: PROTONIX INJ 40 MG VIAL IVP SCH ×2 (08:29→21:59)
[2020-11-09] MEDS: NYSTATIN POWDER TOP SCH ×2 (08:29→21:57)
[2020-11-09] MEDS: PEPCID TAB 40 MG PO SCH (08:31)
[2020-11-09] MEDS: COREG TAB 12.5 MG PO SCH ×2 (08:31→21:56)
[2020-11-09] MEDS: LIPITOR TAB 80 MG PO SCH (08:32)
[2020-11-09] MEDS: LEXAPRO PO SCH (08:32)
[2020-11-09] MEDS: ZINC SULFATE PO SCH ×2 (08:32→22:00)
[2020-11-09] MEDS: TRICOR TAB 160 MG PO SCH (08:33)
[2020-11-09] MEDS: VSL#3 PO SCH (08:33)
[2020-11-09] MEDS: ZESTRIL TAB 5 MG PO SCH ×2 (08:33→21:00)
[2020-11-09] MEDS: VITAMIN D3 125 mcg (5,000 UNITS) PO SCH (08:33)
[2020-11-09] MEDS: VITAMIN A PO SCH (08:34)
[2020-11-09] MEDS: VIBRAMYCIN 100 MG in D5W 250 ML IV 250 ML IV SCH ×2 (10:00→21:59)
[2020-11-09] MEDS: LASIX IVP SCH (10:00)
[2020-11-09] MEDS: NS 1/2 1000 ML IV 1,000 ML IV SCH (12:03)
[2020-11-09] MEDS: SNACK - Diabetic Appropriate PO SCH (20:00)
[2020-11-09] MEDS ORDERED: MAALOX or MYLANTA PO PRN (20:59)
[2020-11-09] MEDS: ARTIFICIAL TEARS DROPS AFFEYE SCH (21:56)
[2020-11-09] MEDS: ZITHROMAX INJ 500 MG VIAL 500 MG in NS 250 ML IV 250 ML IV SCH (22:00)
[2020-11-09] MEDS: ZOFRAN INJ 4 MG VIAL IVP PRN (22:00)
[2020-11-10] MEDS: NS 1/2 1000 ML IV 1,000 ML IV SCH ×2 (01:30→18:07)
[2020-11-10] MEDS: ASCORBIC ACID INJ MULTI-DOSE VIAL 1,500 MG in NS 100 ML IV 100 ML IV SCH ×3 (03:19→14:45)
[2020-11-10 04:48] LABS: ABG BASE EXCESS 14.1 mmol/L (-2.0-2.0)
[2020-11-10 04:49] LABS: ABG ALLEN TEST POS; ABG HCO3 39.6 mmol/L (22-26)
--- NOTE | 2020-11-10 05:54 | RAD ---
PROCEDURE: Chest X-ray 1 View .HISTORY: PNEUMONIA .TECHNIQUE: AP view .COMPARISON: 11/08/2020.TECHNICAL QUALITY: Satisfactory .FINDINGS:Poor inspiratory effort.Normal size heart for AP technique and degree of inspiration.Mediastinum and hilar regions show no masses.Normal central vascularity.Continued patchy consolidation lung bases consistent with pneumonia with no pleural fluid or pneumothorax.IMPRESSION:Unchanged mild bibasilar pneumonia.Electronically signed by: Manpreet Klein (Nov 10, 2020 05:52:07)
[2020-11-10] MEDS: DUONEB 0.5 MG/3 MG (3 mL) NEB SCH ×3 (06:05→21:21)
[2020-11-10] MEDS: HumuLIN R SUBCUT PRN ×3 (06:07→18:24)
[2020-11-10] MEDS: SOLU-Medrol 125 MG VIAL IVP SCH ×3 (06:07→21:28)
[2020-11-10 06:39] LABS: BASOPHILS % (AUTO) 0.4 % (0.2-1.0); HEMATOCRIT 36.4 % (42.0-54.0); HEMOGLOBIN 12.3 g/dL (13.5-18.0); LYMPHOCYTES # (AUTO) 0.3 X10^3/uL (1.3-2.9); MEAN CORPUSCULAR HGB CONC 33.9 g/dL (33.0-35.0); MEAN CORPUSCULAR VOLUME 91.6 fL (80.0-100.0); MEAN PLATELET VOLUME 8.5 fL (7.4-11.0); MONOCYTES # (AUTO) 0.3 x10^3/uL (0.3-0.8); MONOCYTES % (AUTO) 2.7 % (0.0-13.0); NEUTROPHILS # (AUTO) 11.7 x10^3/uL (2.2-4.8); NEUTROPHILS % (AUTO) 94.9 % (42.0-75.0); PLATELET COUNT 110 X10^3/uL (150.0-450.0); RED BLOOD COUNT 3.97 X10^6/uL (4.7-6.0); RED CELL DISTRIBUTION WIDTH 13.3 % (11.6-16.5); WHITE BLOOD COUNT 12.3 X10^3/uL (3.6-10.0)
[2020-11-10 07:08] LABS: BAND NEUTROPHILS % 2 % (0-10); PLATELET MORPHOLOGY COMMENT NORMAL (NORMAL)
[2020-11-10 07:16] LABS: ALANINE AMINOTRANSFERASE 62 Units/L (12-78); ALKALINE PHOSPHATASE 85 Units/L (46-116); ASPARTATE AMINO TRANSFERASE 41 Units/L (15-37); BLOOD UREA NITROGEN 35 mg/dL (7-18); CALCIUM 8.3 mg/dL (8.5-10.1); CARBON DIOXIDE 34.9 mmol/L (21-32); CHLORIDE 103 mmol/L (98-107); COR CA(FOR HYPOALB) 9.9 mg/dL (8.5-10.1); COR NA(FOR HYPERGLY) 144 mmol/L (136-145); CREATININE 0.84 mg/dL (0.70-1.30); SODIUM 141 mmol/L (136-145); eGFR NON BLACK RACES > 60 (>60)
[2020-11-10] MEDS ORDERED: LEXAPRO ONE (08:38)
[2020-11-10] MEDS: LEXAPRO PO SCH (09:33)
[2020-11-10] MEDS: COREG TAB 12.5 MG PO SCH ×2 (09:34→21:23)
[2020-11-10] MEDS: LEVEMIR SC SCH (09:34)
[2020-11-10] MEDS: LASIX IVP SCH (09:34)
[2020-11-10] MEDS: PEPCID TAB 40 MG PO SCH (09:35)
[2020-11-10] MEDS: LOVENOX INJ 30 MG SYR SC SCH ×2 (09:35→21:23)
[2020-11-10] MEDS: ZINC SULFATE PO SCH ×2 (09:36→21:27)
[2020-11-10] MEDS: TRICOR TAB 160 MG PO SCH (09:36)
[2020-11-10] MEDS: VITAMIN D3 125 mcg (5,000 UNITS) PO SCH (09:36)
[2020-11-10] MEDS: PROTONIX INJ 40 MG VIAL IVP SCH ×2 (09:36→21:25)
[2020-11-10] MEDS: ZESTRIL TAB 5 MG PO SCH ×2 (09:37→21:27)
[2020-11-10] MEDS: VITAMIN A PO SCH (09:37)
[2020-11-10] MEDS: NYSTATIN POWDER TOP SCH ×2 (09:38→21:24)
[2020-11-10] MEDS: VSL#3 PO SCH (09:39)
[2020-11-10] MEDS: VIBRAMYCIN 100 MG in D5W 250 ML IV 250 ML IV SCH ×2 (09:39→21:26)
[2020-11-10] MEDS: LIPITOR TAB 80 MG PO SCH (09:39)
[2020-11-10] MEDS: MAGIC MOUTHWASH MT SCH ×4 (13:50→21:24)
[2020-11-10] MEDS: NYSTATIN SUSP PO SCH ×4 (13:51→21:24)
--- NOTE | 2020-11-10 17:28 | PCM.PROG ---
Progress Note - Progress Note for Day of Date of Exam: 11/10/20 - Subjective Subjective: Mr. Lopez is a 60-year-old white male suffering from COVID-19 pneumonia with hypoxia and complications due to acute viral illness including worsening diabetes mellitus and hypertension. The patient was also in renal failure on admission which has resolved. His BUN was at 35 today, creatine 0.84. His blood sugar was 245. We have slightly increased his basal insulin. He is still on sliding scale insulin. The patient is reporting a little bit better of an appetite, he prefers liquids over solids but especially for breakfast. Per nursing staff, he has been attempting physical therapy. The patient has been unable to stand. He states that his legs are too weak at this time, but his goal was to try to transfer to the recliner. His blood pressure was 134/67. He has been afebrile. The patient was down to heated high flow at 15 L, saturating 94%. He denies any chest pain. His white count was 12.3, hemoglobin 12.3. The patient states that he wants to go home. He is ready to get out of the hospital. We encouraged patient to continue with physical therapy, as well as respiratory therapy and continued emotional support as well. - Past Medical Family Social History Past Med/Fam/Surg Hx: No changes since H&P Allergies: Allergies No Known Drug Allergies Allergy (Verified 10/19/20 06:47) - Review of Systems ROS: No change since H&P - Vital Signs and I&O's Vital Signs: Temperature 98.1 F Pulse Rate [Apical] 78 Pulse Rate 70 Respiratory Rate 18 Blood Pressure [Right Arm] 110/55 Blood Pressure [Right Radial 162/77 Artery] Blood Pressure [Left Arm] 189/98 Blood Pressure 170/81 O2 Sat by Pulse Oximetry 90 Intake and Output: Intake & Output 11/08/20 11/09/20 11/10/20 11/11/20 11:59 11:59 11:59 11:59 Intake Total 3216 / 3216 3738 / 3738 2478 / 2478 Output Total 950 / 950 1200 / 1200 1920 / 1920 Balance 2266 / 2266 2538 / 2538 558 / 558 - Physical Exam Oriented: Normal Eyes: Normal Ear: Normal Nose: Normal Throat: Normal Respiratory: Diminished Cardiovascular: Normal : Normal Auscultation: Bowel Sounds: Normal Tenderness: Normal Skin: Decreased Turgur Musculoskeletal: Motor Deficit (diffuse weakness, muscle atrophy) Psychiatric: Anxiety Affect: Anxious Speech Pattern: Appropriate, Unclear - Laboratory and Diagnostics Result Diagrams: 11/10/20 05:06 11/10/20 05:06 Labs: 10/28/20 14:45 Stool Stool Culture - Final 10/28/20 14:45 Stool - Final 10/19/20 06:50 Blood Blood Culture - Final 10/19/20 06:50 Blood Blood Culture - Final 10/20/20 13:30 Urine,Clean Catch Urine Culture - Final 10/21/20 04:05 Sputum - Expectorated Sputum Sputum Culture - Final 10/21/20 04:05 Sputum - Expectorated Sputum - Final Laboratory WBC 12.3 X10^3/uL (3.6-10.0) H 11/10/20 05:06 RBC 3.97 X10^6/uL (4.7-6.0) L 11/10/20 05:06 Hgb 12.3 g/dL (13.5-18.0) L 11/10/20 05:06 Hct 36.4 % (42.0-54.0) L 11/10/20 05:06 MCV 91.6 fL (80.0-100.0) 11/10/20 05:06 MCH 31.0 pg (27.0-34.0) 11/10/20 05:06 MCHC 33.9 g/dL (33.0-35.0) 11/10/20 05:06 RDW 13.3 % (11.6-16.5) 11/10/20 05:06 Plt Count 110 X10^3/uL (150.0-450.0) L 11/10/20 05:06 Plt Count Comment Decreased (ADEQUATE) 11/10/20 05:06 MPV 8.5 fL (7.4-11.0) 11/10/20 05:06 Neut % (Auto) 94.9 % (42.0-75.0) H 11/10/20 05:06 Lymph % (Auto) 2.0 % (21.0-51.0) L 11/10/20 05:06 [place] % (Auto) 2.7 % (0.0-13.0) 11/10/20 05:06 Eos % (Auto) 0.0 % (0.9-2.9) L 11/10/20 05:06 Baso % (Auto) 0.4 % (0.2-1.0) 11/10/20 05:06 Neut # (Auto) 11.7 x10^3/uL (2.2-4.8) H 11/10/20 05:06 Lymph # (Auto) 0.3 X10^3/uL (1.3-2.9) L 11/10/20 05:06 [place] # (Auto) 0.3 x10^3/uL (0.3-0.8) 11/10/20 05:06 Eos # (Auto) 0.0 x10^3/uL (0.0-0.2) 11/10/20 05:06 Baso # (Auto) 0.0 X10^3/uL (0.0-0.1) 11/10/20 05:06 Absolute Nucleated RBC 0.0 /100WBC 11/10/20 05:06 Total Counted 100 11/10/20 05:06 Neutrophils % (Manual) 92 % (39-76) H 11/10/20 05:06 Band Neutrophils % 2 % (0-10) 11/10/20 05:06 Lymphocytes % (Manual) 5 % (13-43) L 11/10/20 05:06 Monocytes % (Manual) 1 % (4-9) L 11/10/20 05:06 Basophils % (Manual) 1 % (0-1) 10/24/20 06:05 Myelocytes % 4 10/24/20 06:05 Plt Clumps, EDTA Few 10/23/20 05:35 Plt Morphology Comment Normal (NORMAL) 11/10/20 05:06 RBC Morphology Normal (NORMAL) 11/10/20 05:06 PT 16.1 SECONDS (11.8-14.3) 10/19/20 06:50 INR Target Range - 10/19/20 06:50 INR 1.33 (0.8-1.3) H 10/19/20 06:50 APTT 31.5 SECONDS (22.9-36.5) 10/19/20 06:50 PTT Comment - 10/19/20 06:50 D-Dimer 1.26 ug/ml (0.0-0.57) H* 11/04/20 05:05 Sample Site Rr 11/10/20 04:38 ABG pH 7.490 (7.35-7.45) H 11/10/20 04:38 ABG pCO2 52.0 mmHg (35.0-45.0) H* 11/10/20 04:38 ABG pO2 53.0 mmHg (80.0-100.0) L 11/10/20 04:38 ABG HCO3 39.6 mmol/L (22-26) H* 11/10/20 04:38 ABG O2 Saturation 90.0 % (90-100) 11/10/20 04:38 ABG Base Excess 14.1 mmol/L (-2.0-2.0) H 11/10/20 04:38 Abad Test Pos 11/10/20 04:38 A-a Gradient 367.0 mmHg 11/09/20 05:00 FiO2 85.0 11/10/20 04:38 Blood Gas Comments Gail well, 11/10/20 04:38 Sodium 141 mmol/L (136-145) 11/10/20 05:06 Corrected Sodium 144 mmol/L (136-145) 11/10/20 05:06 Potassium 3.8 mmol/L (3.5-5.1) 11/10/20 05:06 Chloride 103 mmol/L (98-107) 11/10/20 05:06 Carbon Dioxide 34.9 mmol/L (21-32) H 11/10/20 05:06 BUN 35 mg/dL (7-18) H 11/10/20 05:06 Creatinine 0.84 mg/dL (0.70-1.30) 11/10/20 05:06 Est GFR (MDRD) Af Amer > 60 (>60) 11/10/20 05:06 Est GFR (MDRD) Non-Af > 60 (>60) 11/10/20 05:06 Glucose 245 mg/dL (65-99) H 11/10/20 05:06 POC Glucose (mg/dL) 293 mg/dL (65-99) H 11/10/20 12:00 Hemoglobin A1c 6.7 % 10/21/20 08:40 Lactic Acid 1.4 mmol/L (0.4-2.0) 10/20/20 13:43 Calcium 8.3 mg/dL (8.5-10.1) L 11/10/20 05:06 Corrected Calcium 9.9 mg/dL (8.5-10.1) 11/10/20 05:06 Magnesium 2.1 mg/dL (1.7-2.9) 11/07/20 05:10 Ferritin 779 ng/mL (26-388) H 10/19/20 06:50 Total Bilirubin 0.70 mg/dL (0.2-1.0) 11/10/20 05:06 AST 41 Units/L (15-37) H 11/10/20 05:06 ALT 62 Units/L (12-78) 11/10/20 05:06 Alkaline Phosphatase 85 Units/L (46-116) 11/10/20 05:06 Creatine Kinase 120 Units/L (39-308) 10/21/20 08:40 CK-MB (CK-2) < 1.0 ng/mL (0-4.0) 10/21/20 08:40 CK/CKMB % Calc 0.8 % (<4) 10/21/20 08:40 Troponin I 0.04 ng/mL (0-1.5) 10/21/20 08:40 C-Reactive Protein 2.50 mg/L (0-3.0) 11/04/20 05:00 B-Natriuretic Peptide 214 pg/mL (0-79) H 11/04/20 05:00 Total Protein 5.0 g/dL (6.4-8.2) L 11/10/20 05:06 Albumin 2.0 g/dL (3.4-5.0) L 11/10/20 05:06 Globulin 3.0 g/dL (2.5-4.5) 11/10/20 05:06 Albumin/Globulin Ratio 0.7 Ratio (1.1-2.1) L 11/10/20 05:06 Prealbumin 17.7 mg/dL (18-35.7) L 11/01/20 04:35 Specimen Type Clean catch urine 10/20/20 13:30 Urine Color Yellow (YELLOW) 10/20/20 13:30 Urine Appearance Hazy (CLEAR) 10/20/20 13:30 Urine pH 5.0 (5.0 - 8.0) 10/20/20 13:30 Ur Specific [place] 1.020 (1.000-1.030) 10/20/20 13:30 Urine Protein 2+ (NEGATIVE) 10/20/20 13:30 Urine Glucose (UA) 3+ (NEGATIVE) 10/20/20 13:30 Urine Ketones Negative (NEGATIVE) 10/20/20 13:30 Urine Occult Blood 1+ (NEGATIVE) 10/20/20 13:30 Urine Nitrite Negative (NEGATIVE) 10/20/20 13:30 Urine Bilirubin Negative (NEGATIVE) 10/20/20 13:30 Urine Urobilinogen Normal (NORMAL) 10/20/20 13:30 Ur Leukocyte Esterase Negative (NEGATIVE) 10/20/20 13:30 Urine RBC 0-2 /HPF (0-3) 10/20/20 13:30 Urine WBC 0-2 /HPF (0-5) 10/20/20 13:30 Ur Squamous Epith Cells Rare /HPF (NEGATIVE) 10/20/20 13:30 Amorphous Sediment 1+ /HPF (NEGATIVE) 10/20/20 13:30 Urine Bacteria 1+ /HPF (NEGATIVE) 10/20/20 13:30 Urine Mucus Few /HPF (NEGATIVE) 10/20/20 13:30 Ur Culture Indicated? Yes/culture set up 10/20/20 13:30 SARS CoV-2 RNA Rapid HARINDER Positive (NEGATIVE) A 10/19/20 12:28 Miscellaneous Test Covid 19 10/29/20 17:00 Blood Type B POSITIVE 10/21/20 08:40 - Plan (1) Pneumonia due to COVID-19 virus Status: Acute Plan: COVID-19 pneumonia with hypoxia. Continue IV antibiotics, respiratory therapy, supplemental oxygen, and pulmonary toileting. Repeat a.m. labs, ABG, and a chest x-ray. (2) Hypertension Status: Acute (3) COVID-19 Status: Acute (4) Diabetes mellitus Status: Acute
[2020-11-10] MEDS: SNACK - Diabetic Appropriate PO SCH (19:39)
[2020-11-10] MEDS ORDERED: NS 1/2 1000 ML IV 1,000 ML IV ONE (20:10)
[2020-11-10] MEDS: ARTIFICIAL TEARS DROPS AFFEYE SCH (21:23)
[2020-11-10] MEDS: ZITHROMAX INJ 500 MG VIAL 500 MG in NS 250 ML IV 250 ML IV SCH (21:28)
[2020-11-11] MEDS: NS 1/2 1000 ML IV 1,000 ML IV SCH ×2 (04:11→12:00)
[2020-11-11] MEDS: DUONEB 0.5 MG/3 MG (3 mL) NEB SCH ×4 (05:55→20:55)
[2020-11-11] MEDS: SOLU-Medrol 125 MG VIAL IVP SCH ×3 (05:56→21:10)
[2020-11-11 06:04] LABS: BASOPHILS % (AUTO) 0.1 % (0.2-1.0); HEMOGLOBIN 12.3 g/dL (13.5-18.0); LYMPHOCYTES # (AUTO) 0.3 X10^3/uL (1.3-2.9); LYMPHOCYTES % (AUTO) 1.9 % (21.0-51.0); MEAN CORPUSCULAR HEMOGLOBIN 31.2 pg (27.0-34.0); MEAN CORPUSCULAR HGB CONC 34.3 g/dL (33.0-35.0); MEAN CORPUSCULAR VOLUME 90.9 fL (80.0-100.0); MEAN PLATELET VOLUME 8.7 fL (7.4-11.0); MONOCYTES # (AUTO) 0.2 x10^3/uL (0.3-0.8); MONOCYTES % (AUTO) 1.4 % (0.0-13.0); NEUTROPHILS # (AUTO) 12.9 x10^3/uL (2.2-4.8); NEUTROPHILS % (AUTO) 96.6 % (42.0-75.0); PLATELET COUNT 125 X10^3/uL (150.0-450.0); RED BLOOD COUNT 3.96 X10^6/uL (4.7-6.0); RED CELL DISTRIBUTION WIDTH 12.9 % (11.6-16.5); WHITE BLOOD COUNT 13.4 X10^3/uL (3.6-10.0)
[2020-11-11 06:14] LABS: ALANINE AMINOTRANSFERASE 63 Units/L (12-78); ALBUMIN 2.1 g/dL (3.4-5.0); ALKALINE PHOSPHATASE 80 Units/L (46-116); ASPARTATE AMINO TRANSFERASE 40 Units/L (15-37); BLOOD UREA NITROGEN 30 mg/dL (7-18); CALCIUM 8.3 mg/dL (8.5-10.1); CARBON DIOXIDE 36.2 mmol/L (21-32); CHLORIDE 105 mmol/L (98-107); COR CA(FOR HYPOALB) 9.8 mg/dL (8.5-10.1); COR NA(FOR HYPERGLY) 146 mmol/L (136-145); CREATININE 0.79 mg/dL (0.70-1.30); SODIUM 143 mmol/L (136-145); TOTAL PROTEIN 5.1 g/dL (6.4-8.2); eGFR NON BLACK RACES > 60 (>60)
[2020-11-11] MEDS ORDERED: VERSED ONE ×2 (06:23→06:31)
[2020-11-11] MEDS ORDERED: QUELICIN (OR ANECTINE) ONE (06:24)
--- NOTE | 2020-11-11 06:50 | RAD ---
HISTORYET TUBE PLACEMENTSTUDYCHEST, 1 VIEWCOMPARISONOne day prior.TECHNIQUEAP view of the chestFINDINGSET tube in good position. The cardiac silhouette is stably enlarged. Mediastinal contours appear stable. Worsening of diffuse bilateral airspace opacities. No definite pleural effusion or pneumothorax. Soft tissue attenuation limits evaluation. Left upper extremity PICC line in good position. Mild gas in the left dmitri neck.IMPRESSIONWorsening of bilateral airspace opacities. Mild subcutaneous gas in the left dmitri neck.Electronically signed by: David Ladd (Nov 11, 2020 06:47:54)
[2020-11-11 07:13] LABS: BAND NEUTROPHILS % 1 % (0-10); PLATELET MORPHOLOGY COMMENT NORMAL (NORMAL)
[2020-11-11] MEDS: HumuLIN R SUBCUT PRN ×3 (07:15→21:50)
[2020-11-11] MEDS ORDERED: DIPRIVAN PREMIX 1 GRAM IV 1,000 MG/100 ML VIAL ONE (07:33)
[2020-11-11] MEDS: DIPRIVAN PREMIX 1 GRAM IV 1,000 MG/100 ML VIAL IV PRN ×2 (07:40→13:00)
[2020-11-11] MEDS: APRESOLINE INJ 20 MG VIAL IVP PRN (07:51)
[2020-11-11] MEDS: LEXAPRO PO SCH (08:05)
[2020-11-11] MEDS: COREG TAB 12.5 MG PO SCH ×2 (08:05→21:09)
[2020-11-11] MEDS: LIPITOR TAB 80 MG PO SCH (08:05)
[2020-11-11] MEDS: TRICOR TAB 160 MG PO SCH (08:05)
[2020-11-11] MEDS: VITAMIN A PO SCH (08:06)
[2020-11-11] MEDS: PEPCID TAB 40 MG PO SCH (08:06)
[2020-11-11] MEDS: VSL#3 PO SCH (08:07)
[2020-11-11] MEDS: ZESTRIL TAB 5 MG PO SCH ×3 (08:07→21:10)
[2020-11-11] MEDS: VITAMIN D3 125 mcg (5,000 UNITS) PO SCH (08:07)
[2020-11-11] MEDS: ZINC SULFATE PO SCH ×2 (08:08→22:00)
[2020-11-11] MEDS: NYSTATIN SUSP PO SCH ×4 (08:09→21:49)
[2020-11-11] MEDS: MAGIC MOUTHWASH MT SCH ×4 (08:09→21:11)
[2020-11-11] MEDS: LASIX IVP SCH (09:30)
[2020-11-11 09:59] LABS: ABG BASE EXCESS 12.6 mmol/L (-2.0-2.0)
[2020-11-11] MEDS: LEVEMIR SC SCH (10:27)
[2020-11-11] MEDS: NYSTATIN POWDER TOP SCH ×2 (10:28→21:11)
[2020-11-11] MEDS: LOVENOX INJ 30 MG SYR SC SCH ×2 (10:28→21:12)
[2020-11-11] MEDS: VIBRAMYCIN 100 MG in D5W 250 ML IV 250 ML IV SCH ×2 (10:28→21:00)
[2020-11-11] MEDS: PROTONIX INJ 40 MG VIAL IVP SCH ×2 (10:29→21:12)
[2020-11-11] MEDS: PRECEDEX 400 MCG/100 ML PREMIX 400 MCG/100 ML INFUS..BTL IV PRN ×3 (13:12→20:41)
[2020-11-11] MEDS ORDERED: NS 1000 ML 1,000 ML IV ONE (16:15)
[2020-11-11 17:38] LABS: BILIRUBIN,URINE NEGATIVE (NEGATIVE); BLOOD/HEMOGLOBIN,URINE 4+ (NEGATIVE); GLUCOSE, URINE 3+ (NEGATIVE); KETONES,URINE NEGATIVE (NEGATIVE); LEUKOCYTE ESTERASE ,URINE 1+ (NEGATIVE); NITRITES,URINE NEGATIVE (NEGATIVE); PROTEIN,URINE 2+ (NEGATIVE); UROBILINOGEN,URINE NORMAL (NORMAL)
[2020-11-11 17:53] LABS: APPEARANCE,URINE CLEAR (CLEAR); COLOR,URINE YELLOW (YELLOW)
[2020-11-11 17:54] LABS: BACTERIA,URINE TRACE /HPF (NEGATIVE); MUCUS,URINE RARE /HPF (NEGATIVE); SPERM,URINE RARE /HPF (NEGATIVE); SQUAMOUS EPITHELIAL CELL,UR RARE /HPF (NEGATIVE)
[2020-11-11] MEDS: ZOSYN VIAL 4.5 GRAMS 4.5 G in NS 100 ML IV + SPIKE MINIBAG* 100 ML IV SCH ×2 (18:19→23:00)
[2020-11-11] MEDS: ZITHROMAX TAB 250 MG PO SCH (18:19)
--- NOTE | 2020-11-11 18:48 | RAD ---
HISTORYOG TUBE PLACEMENT HTN, DIABETES, APPENDIXSTUDYKUBCOMPARISONNo recent priors.FINDINGSEvaluation of the abdomen demonstrates a nonspecific bowel gas pattern with a nasogastric tube whose tip terminates in the stomach. No pathological soft tissue mass or calcification can be observed. The bony structures are grossly intact.IMPRESSIONNasogastric tube tip overlies the region of the stomach in the LUQ. Nonspecific bowel gas pattern.Electronically signed by: ODELL MARTINS III (Nov 11, 2020 18:46:56)
[2020-11-11] MEDS: SNACK - Diabetic Appropriate PO SCH (21:09)
[2020-11-11] MEDS: ARTIFICIAL TEARS DROPS AFFEYE SCH (21:51)
[2020-11-11] MEDS: ZYVOX 600MG IV 600 MG/300 ML BAG IV SCH (22:00)
[2020-11-12] MEDS ORDERED: NS 1/2 1000 ML IV 1,000 ML IV ONE (02:46)
[2020-11-12] MEDS: DIPRIVAN PREMIX 1 GRAM IV 1,000 MG/100 ML VIAL IV PRN ×6 (03:38→22:33)
[2020-11-12] MEDS: NS 1/2 1000 ML IV 1,000 ML IV SCH ×2 (03:38→17:27)
[2020-11-12] MEDS: PRECEDEX 400 MCG/100 ML PREMIX 400 MCG/100 ML INFUS..BTL IV PRN ×6 (03:39→17:04)
[2020-11-12 04:55] LABS: ABG BASE EXCESS 12.1 mmol/L (-2.0-2.0)
[2020-11-12] MEDS: DUONEB 0.5 MG/3 MG (3 mL) NEB SCH ×3 (04:55→21:15)
[2020-11-12 04:56] LABS: ABG ALLEN TEST POS; ABG HCO3 36.7 mmol/L (22-26)
[2020-11-12] MEDS: SOLU-Medrol 125 MG VIAL IVP SCH ×3 (05:57→22:11)
[2020-11-12] MEDS: ZOSYN VIAL 4.5 GRAMS 4.5 G in NS 100 ML IV + SPIKE MINIBAG* 100 ML IV SCH ×3 (05:58→23:09)
[2020-11-12] MEDS: POTASSIUM CHLORIDE LIQ 20 MEQ UDC PO PRN (05:59)
[2020-11-12] MEDS: HumuLIN R SUBCUT PRN ×4 (06:04→22:17)
[2020-11-12 06:28] LABS: BASOPHILS % (AUTO) 0.2 % (0.2-1.0); EOSINOPHILS % (AUTO) 0.1 % (0.9-2.9); HEMATOCRIT 33.5 % (42.0-54.0); HEMOGLOBIN 11.5 g/dL (13.5-18.0); LYMPHOCYTES # (AUTO) 0.3 X10^3/uL (1.3-2.9); LYMPHOCYTES % (AUTO) 2.8 % (21.0-51.0); MEAN CORPUSCULAR HEMOGLOBIN 31.6 pg (27.0-34.0); MEAN CORPUSCULAR HGB CONC 34.4 g/dL (33.0-35.0); MEAN CORPUSCULAR VOLUME 91.9 fL (80.0-100.0); MEAN PLATELET VOLUME 8.8 fL (7.4-11.0); MONOCYTES # (AUTO) 0.5 x10^3/uL (0.3-0.8); MONOCYTES % (AUTO) 4.6 % (0.0-13.0); NEUTROPHILS # (AUTO) 9.6 x10^3/uL (2.2-4.8); NEUTROPHILS % (AUTO) 92.3 % (42.0-75.0); PLATELET COUNT 89 X10^3/uL (150.0-450.0); RED BLOOD COUNT 3.65 X10^6/uL (4.7-6.0); WHITE BLOOD COUNT 10.4 X10^3/uL (3.6-10.0)
[2020-11-12 06:31] LABS: ALANINE AMINOTRANSFERASE 57 Units/L (12-78); ALBUMIN 1.8 g/dL (3.4-5.0); ALKALINE PHOSPHATASE 70 Units/L (46-116); ASPARTATE AMINO TRANSFERASE 22 Units/L (15-37); BLOOD UREA NITROGEN 40 mg/dL (7-18); CALCIUM 7.9 mg/dL (8.5-10.1); CARBON DIOXIDE 31.5 mmol/L (21-32); CHLORIDE 103 mmol/L (98-107); COR CA(FOR HYPOALB) 9.7 mg/dL (8.5-10.1); COR NA(FOR HYPERGLY) 146 mmol/L (136-145); CREATININE 1.08 mg/dL (0.70-1.30); SODIUM 141 mmol/L (136-145); TOTAL PROTEIN 4.8 g/dL (6.4-8.2); eGFR NON BLACK RACES > 60 (>60)
[2020-11-12 07:02] LABS: BAND NEUTROPHILS % 3 % (0-10)
[2020-11-12 07:03] LABS: PLATELET MORPHOLOGY COMMENT NORMAL (NORMAL)
--- NOTE | 2020-11-12 08:09 | RAD ---
HISTORYINTUBATED, COVID PNEUMONIASTUDYCHEST, 1 [id number]/03/2021.TECHNIQUEAP view of the chestFINDINGSET tube in good position. Left upper extremity PICC line in good position.NG tube courses below the visualized field of view. The cardiac silhouette is stably enlarged. Mediastinal contours appear stable. Re-demonstration of diffuse bilateral airspace disease. Development of significant subcutaneous emphysema in the neck and suspect pneumomediastinum. No discernible pleural effusion or pneumothorax.IMPRESSIONDevelopment of significant subcutaneous emphysema in the neck and chest. Suspect pneumomediastinum.Electronically signed by: David Ladd (Nov 12, 2020 08:07:26)
[2020-11-12] MEDS ORDERED: LEXAPRO ONE ×2 (08:16→09:44)
[2020-11-12] MEDS: VIBRAMYCIN 100 MG in D5W 250 ML IV 250 ML IV SCH ×2 (08:23→20:44)
[2020-11-12] MEDS: COREG TAB 12.5 MG PO SCH ×3 (08:52→20:41)
[2020-11-12] MEDS: LEXAPRO PO SCH (08:53)
[2020-11-12] MEDS: LIPITOR TAB 80 MG PO SCH (08:53)
[2020-11-12] MEDS: PROTONIX INJ 40 MG VIAL IVP SCH ×2 (08:54→20:43)
[2020-11-12] MEDS: PEPCID TAB 40 MG PO SCH (08:54)
[2020-11-12] MEDS: TRICOR TAB 160 MG PO SCH (08:54)
[2020-11-12] MEDS: ZESTRIL TAB 5 MG PO SCH ×3 (08:55→20:32)
[2020-11-12] MEDS: VSL#3 PO SCH (08:55)
[2020-11-12] MEDS: ZINC SULFATE PO SCH ×2 (08:56→20:44)
[2020-11-12] MEDS: ZITHROMAX TAB 250 MG PO SCH (08:56)
[2020-11-12] MEDS: VITAMIN D3 125 mcg (5,000 UNITS) PO SCH (08:56)
[2020-11-12] MEDS: NYSTATIN SUSP PO SCH ×4 (08:57→20:43)
[2020-11-12] MEDS: MAGIC MOUTHWASH MT SCH ×4 (08:58→20:42)
[2020-11-12] MEDS: LEVEMIR SC SCH (08:58)
[2020-11-12] MEDS: NYSTATIN POWDER TOP SCH ×2 (08:58→20:42)
[2020-11-12] MEDS: ZYVOX 600MG IV 600 MG/300 ML BAG IV SCH ×2 (09:52→22:11)
[2020-11-12] MEDS: VITAMIN A PO SCH (09:52)
[2020-11-12] MEDS ORDERED: HALDOL INJ IVP ONE (16:22)
[2020-11-12] MEDS ORDERED: BENADRYL INJ 50 MG VIAL IVP ONE (16:36)
[2020-11-12] MEDS: VERSED IV PREMIX 100 MG/100 ML IV.SOLN IV PRN (17:21)
--- NOTE | 2020-11-12 20:00 | DR.UPDATE ---
H&P Update History and Physical Update: History and Physical reviewed and patient examined. Changes noted: NO Yes with the following:will place central lilne for iv access H&P Reviewed: Yes Patient was examined?: Yes Procedures (ALL) - Central Line Placement PCM.CLCO: written consent Time out performed: Yes Patient placed pm monitor/pulse ox: Yes prep: mask, gown, gloves, other Centrial line prep: chlorhexidine scrub, sterile drapes applied Local anesthsia used: lidocane 1% Ultrasound used for placement: Yes (RIJ x2 att. right fem x1 att successful. cannulation visualized via u/s) Central line lumen ininserted: triple Post procedure: sutured in place, good blood return, all ports aspirated, flushed,capped, sterile dressing applied Post procedure xray: other (no cxr; femoral line) Patient tolerated procedure: Yes Complications: none
[2020-11-12] MEDS: SNACK - Diabetic Appropriate PO SCH (20:26)
[2020-11-12] MEDS: ARTIFICIAL TEARS DROPS AFFEYE SCH (20:42)
[2020-11-13] MEDS: PRECEDEX 400 MCG/100 ML PREMIX 400 MCG/100 ML INFUS..BTL IV PRN (00:47)
[2020-11-13 05:16] LABS: ABG BASE EXCESS 11.1 mmol/L (-2.0-2.0)
[2020-11-13 05:17] LABS: ABG ALLEN TEST POS; ABG HCO3 36.4 mmol/L (22-26)
[2020-11-13] MEDS: SOLU-Medrol 125 MG VIAL IVP SCH ×3 (05:26→22:36)
[2020-11-13] MEDS: ZOSYN VIAL 4.5 GRAMS 4.5 G in NS 100 ML IV + SPIKE MINIBAG* 100 ML IV SCH ×3 (05:27→22:36)
[2020-11-13] MEDS: HumuLIN R SUBCUT PRN ×3 (05:35→20:05)
[2020-11-13 06:34] LABS: BASOPHILS % (AUTO) 0.1 % (0.2-1.0); HEMATOCRIT 35.1 % (42.0-54.0); HEMOGLOBIN 11.6 g/dL (13.5-18.0); LYMPHOCYTES # (AUTO) 0.4 X10^3/uL (1.3-2.9); LYMPHOCYTES % (AUTO) 3.1 % (21.0-51.0); MEAN CORPUSCULAR HEMOGLOBIN 30.5 pg (27.0-34.0); MEAN CORPUSCULAR HGB CONC 33.2 g/dL (33.0-35.0); MEAN PLATELET VOLUME 8.8 fL (7.4-11.0); MONOCYTES # (AUTO) 0.7 x10^3/uL (0.3-0.8); MONOCYTES % (AUTO) 5.4 % (0.0-13.0); NEUTROPHILS # (AUTO) 11.1 x10^3/uL (2.2-4.8); NEUTROPHILS % (AUTO) 91.4 % (42.0-75.0); PLATELET COUNT 90 X10^3/uL (150.0-450.0); RED BLOOD COUNT 3.81 X10^6/uL (4.7-6.0); RED CELL DISTRIBUTION WIDTH 12.9 % (11.6-16.5); WHITE BLOOD COUNT 12.2 X10^3/uL (3.6-10.0)
[2020-11-13 06:47] LABS: ALANINE AMINOTRANSFERASE 54 Units/L (12-78); ALBUMIN 1.8 g/dL (3.4-5.0); ALKALINE PHOSPHATASE 69 Units/L (46-116); ASPARTATE AMINO TRANSFERASE 20 Units/L (15-37); BLOOD UREA NITROGEN 31 mg/dL (7-18); CALCIUM 8.1 mg/dL (8.5-10.1); CARBON DIOXIDE 31.1 mmol/L (21-32); CHLORIDE 104 mmol/L (98-107); COR CA(FOR HYPOALB) 9.9 mg/dL (8.5-10.1); COR NA(FOR HYPERGLY) 145 mmol/L (136-145); CREATININE 0.78 mg/dL (0.70-1.30); SODIUM 142 mmol/L (136-145); TOTAL PROTEIN 4.8 g/dL (6.4-8.2); eGFR NON BLACK RACES > 60 (>60)
[2020-11-13 07:12] LABS: BAND NEUTROPHILS % 5 % (0-10); PLATELET MORPHOLOGY COMMENT NORMAL (NORMAL)
--- NOTE | 2020-11-13 07:46 | RAD ---
HISTORYCOVID PNEUMONIASTUDYCHEST, 1 VIEWCOMPARISONOne day prior.TECHNIQUEAP view of the chestFINDINGSET tube in stable position. NG tube in good position. Left upper extremity PICC line in good position. Mildly improved appearance of diffuse bilateral airspace opacities. There is a right pneumothorax with approximately 1.3 cm of apical pleural separation. No definite tension. Subcutaneous emphysema in the neck and chest remains. Pneumomediastinum remains.IMPRESSIONNew small to moderate right pneumothorax with 1.3 cm of pleural separation.Electronically signed by: David Ladd (Nov 13, 2020 07:45:25)
[2020-11-13] MEDS ORDERED: LEXAPRO ONE (07:56)
[2020-11-13] MEDS: DIPRIVAN PREMIX 1 GRAM IV 1,000 MG/100 ML VIAL IV PRN ×3 (08:20→20:43)
[2020-11-13] MEDS: NS 1/2 1000 ML IV 1,000 ML IV SCH (08:53)
[2020-11-13] MEDS: LEVEMIR SC SCH (08:53)
[2020-11-13] MEDS: PROTONIX INJ 40 MG VIAL IVP SCH ×2 (09:15→20:02)
[2020-11-13] MEDS: VIBRAMYCIN 100 MG in D5W 250 ML IV 250 ML IV SCH ×2 (09:16→20:03)
[2020-11-13] MEDS: VERSED IV PREMIX 100 MG/100 ML IV.SOLN IV PRN ×2 (09:20→20:27)
[2020-11-13 09:34] LABS: ABG ALLEN TEST POS; ABG HCO3 36.8 mmol/L (22-26)
[2020-11-13] MEDS: COREG TAB 12.5 MG PO SCH ×2 (10:16→20:01)
[2020-11-13] MEDS: LEXAPRO PO SCH (10:16)
[2020-11-13] MEDS: TRICOR TAB 160 MG PO SCH (10:17)
[2020-11-13] MEDS: VITAMIN A PO SCH (10:18)
[2020-11-13] MEDS: ZINC SULFATE PO SCH ×2 (10:19→20:03)
[2020-11-13] MEDS: VITAMIN D3 125 mcg (5,000 UNITS) PO SCH (10:19)
[2020-11-13] MEDS: ZESTRIL TAB 5 MG PO SCH ×2 (10:20→20:59)
[2020-11-13] MEDS: VSL#3 PO SCH (10:47)
[2020-11-13] MEDS: LIPITOR TAB 80 MG PO SCH (10:48)
[2020-11-13] MEDS: MAGIC MOUTHWASH MT SCH ×4 (10:48→20:32)
[2020-11-13] MEDS: ZYVOX 600MG IV 600 MG/300 ML BAG IV SCH ×2 (10:48→21:45)
[2020-11-13] MEDS: NYSTATIN POWDER TOP SCH ×2 (10:50→20:01)
[2020-11-13] MEDS: NYSTATIN SUSP PO SCH ×4 (10:50→20:02)
[2020-11-13] MEDS: PEPCID TAB 40 MG PO SCH (10:51)
[2020-11-13] MEDS: ZITHROMAX TAB 250 MG PO SCH (10:51)
[2020-11-13] MEDS: APRESOLINE INJ 20 MG VIAL IVP PRN (10:57)
[2020-11-13] MEDS: POTASSIUM CHLORIDE LIQ 20 MEQ UDC PO PRN (11:40)
[2020-11-13] MEDS: DUONEB 0.5 MG/3 MG (3 mL) NEB SCH ×2 (13:06→20:37)
[2020-11-13] MEDS: MILK OF MAGNESIA PO SCH (14:04)
[2020-11-13] MEDS: SNACK - Diabetic Appropriate PO SCH (19:34)
[2020-11-13] MEDS: ARTIFICIAL TEARS DROPS AFFEYE SCH (20:00)
[2020-11-14] MEDS: DIPRIVAN PREMIX 1 GRAM IV 1,000 MG/100 ML VIAL IV PRN ×4 (01:17→18:35)
[2020-11-14 04:55] LABS: BASOPHILS # (AUTO) 0.1 X10^3/uL (0.0-0.1); BASOPHILS % (AUTO) 0.5 % (0.2-1.0); EOSINOPHILS % (AUTO) 0.1 % (0.9-2.9); HEMATOCRIT 33.6 % (42.0-54.0); HEMOGLOBIN 11.2 g/dL (13.5-18.0); LYMPHOCYTES # (AUTO) 0.3 X10^3/uL (1.3-2.9); LYMPHOCYTES % (AUTO) 2.7 % (21.0-51.0); MEAN CORPUSCULAR HEMOGLOBIN 30.7 pg (27.0-34.0); MEAN CORPUSCULAR HGB CONC 33.3 g/dL (33.0-35.0); MEAN CORPUSCULAR VOLUME 92.2 fL (80.0-100.0); MEAN PLATELET VOLUME 8.7 fL (7.4-11.0); MONOCYTES # (AUTO) 0.6 x10^3/uL (0.3-0.8); MONOCYTES % (AUTO) 4.8 % (0.0-13.0); NEUTROPHILS # (AUTO) 11.3 x10^3/uL (2.2-4.8); NEUTROPHILS % (AUTO) 91.9 % (42.0-75.0); PLATELET COUNT 91 X10^3/uL (150.0-450.0); RED BLOOD COUNT 3.65 X10^6/uL (4.7-6.0); RED CELL DISTRIBUTION WIDTH 13.1 % (11.6-16.5); WHITE BLOOD COUNT 12.3 X10^3/uL (3.6-10.0)
[2020-11-14 05:13] LABS: ALANINE AMINOTRANSFERASE 50 Units/L (12-78); ALBUMIN 1.6 g/dL (3.4-5.0); ALKALINE PHOSPHATASE 66 Units/L (46-116); ASPARTATE AMINO TRANSFERASE 24 Units/L (15-37); BLOOD UREA NITROGEN 28 mg/dL (7-18); CALCIUM 8.1 mg/dL (8.5-10.1); CARBON DIOXIDE 32.4 mmol/L (21-32); CHLORIDE 106 mmol/L (98-107); COR NA(FOR HYPERGLY) 146 mmol/L (136-145); CREATININE 0.66 mg/dL (0.70-1.30); MAGNESIUM 2.2 mg/dL (1.7-2.9); SODIUM 143 mmol/L (136-145); TOTAL PROTEIN 4.4 g/dL (6.4-8.2); eGFR NON BLACK RACES > 60 (>60)
[2020-11-14] MEDS: ZOSYN VIAL 4.5 GRAMS 4.5 G in NS 100 ML IV + SPIKE MINIBAG* 100 ML IV SCH ×3 (05:13→22:26)
[2020-11-14] MEDS: SOLU-Medrol 125 MG VIAL IVP SCH ×3 (05:13→22:26)
[2020-11-14] MEDS: DUONEB 0.5 MG/3 MG (3 mL) NEB SCH ×3 (05:23→21:38)
[2020-11-14 05:26] LABS: ABG BASE EXCESS 12.1 mmol/L (-2.0-2.0)
[2020-11-14 05:27] LABS: ABG ALLEN TEST POS; ABG HCO3 38.2 mmol/L (22-26)
[2020-11-14] MEDS: HumuLIN R SUBCUT PRN ×4 (05:36→20:07)
[2020-11-14 05:43] LABS: PLATELET MORPHOLOGY COMMENT NORMAL (NORMAL)
--- NOTE | 2020-11-14 06:00 | RAD ---
HISTORYcovidSTUDYPortable AP chestCOMPARISONFebruary 2020FINDINGSThere is at least partial re-expansion of the right lung; a small residual right apical pneumothorax may still be present. There is interval increase in bilateral airspace disease. Extrapulmonary air is noted in soft tissues of neck and probably mediastinum. ET tube remains in mid trachea well above the danelle. NG tube termination cannot be definitely visualized below the diaphragm.IMPRESSIONInterval improvement in right pneumothorax with suspect small right apical residual. Increasing bilateral airspace disease consistent with progression of pneumonia/atelectasis. Extrapulmonary air in cervical soft tissues and probably mediastinum consistent with barotrauma.Electronically signed by: KLEBER LONDON (Nov 14, 2020 05:58:48)
[2020-11-14] MEDS: NS 1/2 1000 ML IV 1,000 ML IV SCH ×2 (06:44→08:23)
[2020-11-14] MEDS ORDERED: LEXAPRO ONE (07:11)
[2020-11-14] MEDS: LEVEMIR SC SCH (08:23)
[2020-11-14] MEDS: COREG TAB 12.5 MG PO SCH ×2 (08:23→20:03)
[2020-11-14] MEDS: LIPITOR TAB 80 MG PO SCH (08:24)
[2020-11-14] MEDS: MAGIC MOUTHWASH MT SCH ×4 (08:24→20:04)
[2020-11-14] MEDS: LEXAPRO PO SCH (08:24)
[2020-11-14] MEDS: NYSTATIN POWDER TOP SCH ×2 (08:25→20:04)
[2020-11-14] MEDS: NYSTATIN SUSP PO SCH ×4 (08:25→20:04)
[2020-11-14] MEDS: PEPCID TAB 40 MG PO SCH (08:25)
[2020-11-14] MEDS: MILK OF MAGNESIA PO SCH (08:25)
[2020-11-14] MEDS: PROTONIX INJ 40 MG VIAL IVP SCH ×2 (08:26→20:04)
[2020-11-14] MEDS: TRICOR TAB 160 MG PO SCH (08:26)
[2020-11-14] MEDS: VITAMIN D3 125 mcg (5,000 UNITS) PO SCH (08:26)
[2020-11-14] MEDS: VITAMIN A PO SCH (08:26)
[2020-11-14] MEDS: VSL#3 PO SCH (08:26)
[2020-11-14] MEDS: VIBRAMYCIN 100 MG in D5W 250 ML IV 250 ML IV SCH ×2 (08:26→20:05)
[2020-11-14] MEDS: ZINC SULFATE PO SCH ×2 (08:27→20:05)
[2020-11-14] MEDS: ZYVOX 600MG IV 600 MG/300 ML BAG IV SCH ×2 (08:27→20:05)
[2020-11-14] MEDS: ZESTRIL TAB 5 MG PO SCH (08:27)
[2020-11-14] MEDS: ZITHROMAX TAB 250 MG PO SCH (08:28)
[2020-11-14] MEDS: VERSED IV PREMIX 100 MG/100 ML IV.SOLN IV PRN (10:03)
[2020-11-14] MEDS: LASIX IVP SCH (11:35)
--- NOTE | 2020-11-14 14:45 | RAD ---
HISTORYConstipationSTUDYPortable KUBCOMPARISONFebruary 2020FINDINGSIntestinal gas pattern is unremarkable. There is no evidence for obstruction or localized ileus. NG tube terminates in the proximal stomach. Right femoral catheter is present. Extensive bilateral airspace disease is noted in the lower lungs.IMPRESSIONNo acute intestinal abnormality demonstrated. See above.Electronically signed by: KLEBER LONDON (Nov 14, 2020 14:44:09)
[2020-11-14] MEDS: SNACK - Diabetic Appropriate PO SCH (18:59)
[2020-11-14] MEDS: ARTIFICIAL TEARS DROPS AFFEYE SCH (20:03)
[2020-11-15] MEDS: VERSED IV PREMIX 100 MG/100 ML IV.SOLN IV PRN ×2 (01:54→11:20)
[2020-11-15 04:54] LABS: BASOPHILS % (AUTO) 0.1 % (0.2-1.0); EOSINOPHILS % (AUTO) 0.1 % (0.9-2.9); HEMATOCRIT 35.9 % (42.0-54.0); HEMOGLOBIN 11.9 g/dL (13.5-18.0); LYMPHOCYTES # (AUTO) 0.7 X10^3/uL (1.3-2.9); LYMPHOCYTES % (AUTO) 4.8 % (21.0-51.0); MEAN CORPUSCULAR HEMOGLOBIN 30.7 pg (27.0-34.0); MEAN CORPUSCULAR HGB CONC 33.3 g/dL (33.0-35.0); MEAN CORPUSCULAR VOLUME 92.3 fL (80.0-100.0); MEAN PLATELET VOLUME 8.7 fL (7.4-11.0); MONOCYTES # (AUTO) 1.1 x10^3/uL (0.3-0.8); MONOCYTES % (AUTO) 7.6 % (0.0-13.0); NEUTROPHILS # (AUTO) 12.7 x10^3/uL (2.2-4.8); NEUTROPHILS % (AUTO) 87.4 % (42.0-75.0); PLATELET COUNT 94 X10^3/uL (150.0-450.0); RED BLOOD COUNT 3.89 X10^6/uL (4.7-6.0); RED CELL DISTRIBUTION WIDTH 13.1 % (11.6-16.5); WHITE BLOOD COUNT 14.5 X10^3/uL (3.6-10.0)
[2020-11-15 05:11] LABS: ALANINE AMINOTRANSFERASE 56 Units/L (12-78); ALBUMIN 1.6 g/dL (3.4-5.0); ALKALINE PHOSPHATASE 62 Units/L (46-116); ASPARTATE AMINO TRANSFERASE 26 Units/L (15-37); BLOOD UREA NITROGEN 29 mg/dL (7-18); CALCIUM 7.9 mg/dL (8.5-10.1); CARBON DIOXIDE 34.3 mmol/L (21-32); CHLORIDE 105 mmol/L (98-107); COR CA(FOR HYPOALB) 9.8 mg/dL (8.5-10.1); COR NA(FOR HYPERGLY) 145 mmol/L (136-145); CREATININE 0.65 mg/dL (0.70-1.30); SODIUM 142 mmol/L (136-145); TOTAL PROTEIN 4.5 g/dL (6.4-8.2); eGFR NON BLACK RACES > 60 (>60)
[2020-11-15] MEDS: SOLU-Medrol 125 MG VIAL IVP SCH ×3 (05:26→21:08)
[2020-11-15] MEDS: DIPRIVAN PREMIX 1 GRAM IV 1,000 MG/100 ML VIAL IV PRN ×4 (05:27→22:49)
[2020-11-15] MEDS: ZOSYN VIAL 4.5 GRAMS 4.5 G in NS 100 ML IV + SPIKE MINIBAG* 100 ML IV SCH ×3 (05:27→22:00)
[2020-11-15 05:29] LABS: PLATELET MORPHOLOGY COMMENT NORMAL (NORMAL)
[2020-11-15] MEDS: HumuLIN R SUBCUT PRN ×4 (05:32→21:08)
[2020-11-15 05:46] LABS: ABG BASE EXCESS 14.4 mmol/L (-2.0-2.0)
[2020-11-15 05:47] LABS: ABG ALLEN TEST POS; ABG HCO3 40.2 mmol/L (22-26)
[2020-11-15] MEDS: DUONEB 0.5 MG/3 MG (3 mL) NEB SCH ×3 (05:49→21:47)
--- NOTE | 2020-11-15 06:13 | RAD ---
HISTORYCOVID PNEUMONIA, RESPIRATORY DISTRESS, HYPOXIA FOLLOW UP ON PNEUMOTHORAXSTUDYCHEST, 1 [id number]/06/2021FINDINGSThe trachea is midline. Endotracheal tube tip above the danelle. NG tube tip in the proximal stomach. The side hole is at or near the GE junction. The tube should be further advanced into the stomach for more optimal placement. Left PICC line tip in distal SVC. The cardiac silhouette is stable. Bilateral airspace disease minimally improved. No pneumothorax.. The bony thorax is unremarkable.IMPRESSIONBilateral airspace disease minimally improved from previous 1Electronically signed by: Attila Burch (Nov 15, 2020 06:11:08)
[2020-11-15] MEDS: NS 1/2 1000 ML IV 1,000 ML IV SCH ×2 (07:08→11:18)
[2020-11-15] MEDS ORDERED: LEXAPRO ONE (07:27)
[2020-11-15] MEDS: LASIX IVP SCH (08:23)
[2020-11-15] MEDS: COREG TAB 12.5 MG PO SCH ×2 (08:23→21:05)
[2020-11-15] MEDS: LEVEMIR SC SCH (08:24)
[2020-11-15] MEDS: MAGIC MOUTHWASH MT SCH ×4 (08:24→20:03)
[2020-11-15] MEDS: LEXAPRO PO SCH (08:24)
[2020-11-15] MEDS: LIPITOR TAB 80 MG PO SCH (08:25)
[2020-11-15] MEDS: NYSTATIN POWDER TOP SCH ×2 (08:25→20:04)
[2020-11-15] MEDS: MILK OF MAGNESIA PO SCH (08:25)
[2020-11-15] MEDS: PEPCID TAB 40 MG PO SCH (08:25)
[2020-11-15] MEDS: NYSTATIN SUSP PO SCH ×4 (08:25→19:59)
[2020-11-15] MEDS: VITAMIN A PO SCH (08:26)
[2020-11-15] MEDS: VIBRAMYCIN 100 MG in D5W 250 ML IV 250 ML IV SCH ×2 (08:26→20:02)
[2020-11-15] MEDS: PROTONIX INJ 40 MG VIAL IVP SCH ×2 (08:26→20:03)
[2020-11-15] MEDS: TRICOR TAB 160 MG PO SCH (08:26)
[2020-11-15] MEDS: ZYVOX 600MG IV 600 MG/300 ML BAG IV SCH ×2 (08:27→22:48)
[2020-11-15] MEDS: VSL#3 PO SCH (08:27)
[2020-11-15] MEDS: VITAMIN D3 125 mcg (5,000 UNITS) PO SCH (08:27)
[2020-11-15] MEDS: ZITHROMAX TAB 250 MG PO SCH (08:27)
[2020-11-15] MEDS: ZINC SULFATE PO SCH ×2 (08:27→20:01)
[2020-11-15] MEDS: SNACK - Diabetic Appropriate PO SCH (19:59)
[2020-11-15] MEDS: ARTIFICIAL TEARS DROPS AFFEYE SCH (20:02)
[2020-11-16] MEDS: VERSED IV PREMIX 100 MG/100 ML IV.SOLN IV PRN ×2 (01:35→14:59)
[2020-11-16] MEDS: DIPRIVAN PREMIX 1 GRAM IV 1,000 MG/100 ML VIAL IV PRN ×4 (04:17→21:18)
[2020-11-16] MEDS: DUONEB 0.5 MG/3 MG (3 mL) NEB SCH ×3 (04:55→20:51)
[2020-11-16 05:13] LABS: ABG BASE EXCESS 18.4 mmol/L (-2.0-2.0)
[2020-11-16 05:15] LABS: ABG ALLEN TEST POS; ABG HCO3 45.5 mmol/L (22-26)
[2020-11-16] MEDS: NS 1/2 1000 ML IV 1,000 ML IV SCH ×2 (05:40→20:30)
[2020-11-16] MEDS: SOLU-Medrol 125 MG VIAL IVP SCH ×3 (05:40→21:17)
[2020-11-16] MEDS: ZOSYN VIAL 4.5 GRAMS 4.5 G in NS 100 ML IV + SPIKE MINIBAG* 100 ML IV SCH ×3 (05:40→21:19)
[2020-11-16] MEDS: HumuLIN R SUBCUT PRN ×4 (05:41→21:18)
[2020-11-16 06:06] LABS: BASOPHILS % (AUTO) 0.1 % (0.2-1.0); HEMATOCRIT 37.2 % (42.0-54.0); HEMOGLOBIN 12.5 g/dL (13.5-18.0); LYMPHOCYTES # (AUTO) 0.5 X10^3/uL (1.3-2.9); LYMPHOCYTES % (AUTO) 3.1 % (21.0-51.0); MEAN CORPUSCULAR HEMOGLOBIN 30.9 pg (27.0-34.0); MEAN CORPUSCULAR HGB CONC 33.6 g/dL (33.0-35.0); MEAN CORPUSCULAR VOLUME 91.9 fL (80.0-100.0); MEAN PLATELET VOLUME 8.8 fL (7.4-11.0); MONOCYTES # (AUTO) 0.9 x10^3/uL (0.3-0.8); MONOCYTES % (AUTO) 5.3 % (0.0-13.0); NEUTROPHILS # (AUTO) 16.1 x10^3/uL (2.2-4.8); NEUTROPHILS % (AUTO) 91.5 % (42.0-75.0); PLATELET COUNT 120 X10^3/uL (150.0-450.0); RED BLOOD COUNT 4.04 X10^6/uL (4.7-6.0); RED CELL DISTRIBUTION WIDTH 13.5 % (11.6-16.5); WHITE BLOOD COUNT 17.6 X10^3/uL (3.6-10.0)
[2020-11-16 06:25] LABS: ALANINE AMINOTRANSFERASE 65 Units/L (12-78); ALBUMIN 1.8 g/dL (3.4-5.0); ALKALINE PHOSPHATASE 79 Units/L (46-116); ASPARTATE AMINO TRANSFERASE 32 Units/L (15-37); BLOOD UREA NITROGEN 30 mg/dL (7-18); CALCIUM 8.2 mg/dL (8.5-10.1); CHLORIDE 105 mmol/L (98-107); COR NA(FOR HYPERGLY) 148 mmol/L (136-145); CREATININE 0.63 mg/dL (0.70-1.30); SODIUM 145 mmol/L (136-145); eGFR NON BLACK RACES > 60 (>60)
--- NOTE | 2020-11-16 06:52 | RAD ---
HISTORYPNEUMONIASTUDYCHEST, 1 VIEWCOMPARISONOne day prior.TECHNIQUEAP view of the chestFINDINGSET tube in good position. NG tube in good position. The cardiac silhouette is stably enlarged. Mediastinal contours appear stable. Left upper extremity PICC line with tip in the right atrium. Patient is rotated. Mildly worse appearance of diffuse bilateral airspace opacities. No discernible pleural effusion or pneumothorax.IMPRESSIONMildly worse appearance of diffuse bilateral airspace opacities. PICC line tip is just within the right atrium.Electronically signed by: David Ladd (Nov 16, 2020 06:50:23)
[2020-11-16 06:53] LABS: BAND NEUTROPHILS % 3 % (0-10); PLATELET MORPHOLOGY COMMENT NORMAL (NORMAL)
[2020-11-16] MEDS ORDERED: LEXAPRO ONE (07:22)
[2020-11-16] MEDS: ZITHROMAX TAB 250 MG PO SCH (08:30)
[2020-11-16] MEDS: LASIX IVP SCH (08:30)
[2020-11-16] MEDS: VITAMIN D3 125 mcg (5,000 UNITS) PO SCH (08:31)
[2020-11-16] MEDS: ZINC SULFATE PO SCH ×2 (08:31→20:30)
[2020-11-16] MEDS: VSL#3 PO SCH (08:31)
[2020-11-16] MEDS: VITAMIN A PO SCH (08:32)
[2020-11-16] MEDS: LEVEMIR SC SCH (08:33)
[2020-11-16] MEDS: TRICOR TAB 160 MG PO SCH (08:34)
[2020-11-16] MEDS: LEXAPRO PO SCH (08:34)
[2020-11-16] MEDS: VIBRAMYCIN 100 MG in D5W 250 ML IV 250 ML IV SCH ×2 (08:34→20:00)
[2020-11-16] MEDS: PROTONIX INJ 40 MG VIAL IVP SCH ×2 (08:34→20:31)
[2020-11-16] MEDS: PEPCID TAB 40 MG PO SCH (08:35)
[2020-11-16] MEDS: LIPITOR TAB 80 MG PO SCH (08:36)
[2020-11-16] MEDS: LOVENOX INJ 30 MG SYR SC SCH ×2 (09:12→20:28)
[2020-11-16] MEDS: NYSTATIN POWDER TOP SCH ×2 (09:13→20:32)
[2020-11-16] MEDS: MAGIC MOUTHWASH MT SCH ×4 (10:15→20:31)
[2020-11-16] MEDS: MILK OF MAGNESIA PO SCH (10:16)
[2020-11-16] MEDS: NYSTATIN SUSP PO SCH ×4 (10:16→20:31)
[2020-11-16] MEDS: ZYVOX 600MG IV 600 MG/300 ML BAG IV SCH ×2 (10:17→22:00)
[2020-11-16] MEDS: COREG TAB 12.5 MG PO SCH ×2 (14:38→20:32)
[2020-11-16] MEDS: SNACK - Diabetic Appropriate PO SCH (20:28)
[2020-11-16] MEDS: ARTIFICIAL TEARS DROPS AFFEYE SCH (20:33)
[2020-11-17] MEDS: NS 1/2 1000 ML IV 1,000 ML IV SCH ×2 (01:36→19:16)
[2020-11-17 05:08] LABS: ABG BASE EXCESS 20.6 mmol/L (-2.0-2.0)
[2020-11-17 05:09] LABS: ABG ALLEN TEST POS; ABG HCO3 47.7 mmol/L (22-26)
[2020-11-17] MEDS: DIPRIVAN PREMIX 1 GRAM IV 1,000 MG/100 ML VIAL IV PRN ×3 (05:14→17:27)
[2020-11-17] MEDS: SOLU-Medrol 125 MG VIAL IVP SCH ×3 (05:14→21:03)
[2020-11-17] MEDS: VERSED IV PREMIX 100 MG/100 ML IV.SOLN IV PRN ×2 (05:15→20:35)
[2020-11-17] MEDS: ZOSYN VIAL 4.5 GRAMS 4.5 G in NS 100 ML IV + SPIKE MINIBAG* 100 ML IV SCH ×3 (05:15→21:35)
[2020-11-17 05:27] LABS: BASOPHILS % (AUTO) 0.1 % (0.2-1.0); HEMATOCRIT 37.7 % (42.0-54.0); HEMOGLOBIN 12.6 g/dL (13.5-18.0); LYMPHOCYTES # (AUTO) 0.6 X10^3/uL (1.3-2.9); LYMPHOCYTES % (AUTO) 3.5 % (21.0-51.0); MEAN CORPUSCULAR HEMOGLOBIN 30.5 pg (27.0-34.0); MEAN CORPUSCULAR HGB CONC 33.3 g/dL (33.0-35.0); MEAN CORPUSCULAR VOLUME 91.4 fL (80.0-100.0); MEAN PLATELET VOLUME 8.2 fL (7.4-11.0); MONOCYTES # (AUTO) 0.7 x10^3/uL (0.3-0.8); MONOCYTES % (AUTO) 4.1 % (0.0-13.0); NEUTROPHILS # (AUTO) 15.6 x10^3/uL (2.2-4.8); NEUTROPHILS % (AUTO) 92.3 % (42.0-75.0); PLATELET COUNT 114 X10^3/uL (150.0-450.0); RED BLOOD COUNT 4.12 X10^6/uL (4.7-6.0); RED CELL DISTRIBUTION WIDTH 13.2 % (11.6-16.5); WHITE BLOOD COUNT 16.9 X10^3/uL (3.6-10.0)
[2020-11-17 05:46] LABS: ALANINE AMINOTRANSFERASE 71 Units/L (12-78); ALBUMIN 1.7 g/dL (3.4-5.0); ALKALINE PHOSPHATASE 82 Units/L (46-116); ASPARTATE AMINO TRANSFERASE 32 Units/L (15-37); BLOOD UREA NITROGEN 31 mg/dL (7-18); CALCIUM 7.9 mg/dL (8.5-10.1); CARBON DIOXIDE 38.2 mmol/L (21-32); CHLORIDE 102 mmol/L (98-107); COR CA(FOR HYPOALB) 9.7 mg/dL (8.5-10.1); COR NA(FOR HYPERGLY) 147 mmol/L (136-145); SODIUM 144 mmol/L (136-145); TOTAL PROTEIN 4.8 g/dL (6.4-8.2); eGFR NON BLACK RACES > 60 (>60)
[2020-11-17] MEDS: DUONEB 0.5 MG/3 MG (3 mL) NEB SCH ×3 (05:46→20:40)
[2020-11-17] MEDS: HumuLIN R SUBCUT PRN ×4 (05:49→20:34)
--- NOTE | 2020-11-17 06:18 | RAD ---
HISTORYFollow up respiratory failureSTUDYChest AP [id number]/08/2021FINDINGSExamination is somewhat underpenetrated. There is a nasogastric t ube coursing below the left hemidiaphragm with its tip within the stomach. There is an endotracheal t ube in good position. There is a left-sided PICC line with its tip in the right atrium. The lungs rem ain markedly hypoinflated accentuating the heart size. Bilateral airspace disease appears slightly im proved when compared to the prior examination. No pleural effusions are identified. Bony thorax is un remarkable.IMPRESSIONExam somewhat limited by underpenetrationPersistent hypo inflation unchangedImpr oving bilateral infiltratesElectronically signed by: HERNAN GALVIN (Nov 17, 2020 06:18:05)
[2020-11-17 06:48] LABS: BAND NEUTROPHILS % 2 % (0-10)
[2020-11-17 06:49] LABS: PLATELET MORPHOLOGY COMMENT NORMAL (NORMAL)
[2020-11-17] MEDS ORDERED: LEXAPRO ONE (07:24)
[2020-11-17] MEDS: LASIX IVP SCH (08:47)
[2020-11-17] MEDS: LIPITOR TAB 80 MG PO SCH (08:48)
[2020-11-17] MEDS: LEXAPRO PO SCH (08:48)
[2020-11-17] MEDS: LEVEMIR SC SCH (08:48)
[2020-11-17] MEDS: MAGIC MOUTHWASH MT SCH ×4 (08:49→20:38)
[2020-11-17] MEDS: PEPCID TAB 40 MG PO SCH (08:49)
[2020-11-17] MEDS: LOVENOX INJ 30 MG SYR SC SCH ×2 (08:49→20:36)
[2020-11-17] MEDS: ZITHROMAX TAB 250 MG PO SCH (08:50)
[2020-11-17] MEDS: PROTONIX INJ 40 MG VIAL IVP SCH ×2 (08:50→20:35)
[2020-11-17] MEDS: NYSTATIN POWDER TOP SCH ×2 (08:50→20:36)
[2020-11-17] MEDS: NYSTATIN SUSP PO SCH ×4 (08:51→20:37)
[2020-11-17] MEDS: TRICOR TAB 160 MG PO SCH (08:51)
[2020-11-17] MEDS: VIBRAMYCIN 100 MG in D5W 250 ML IV 250 ML IV SCH ×2 (08:51→20:36)
[2020-11-17] MEDS: VITAMIN A PO SCH (08:51)
[2020-11-17] MEDS: VITAMIN D3 125 mcg (5,000 UNITS) PO SCH (08:52)
[2020-11-17] MEDS: ZINC SULFATE PO SCH ×2 (08:52→20:36)
[2020-11-17] MEDS: VSL#3 PO SCH (08:52)
[2020-11-17] MEDS: ZYVOX 600MG IV 600 MG/300 ML BAG IV SCH ×2 (10:15→20:34)
[2020-11-17] MEDS ORDERED: COREG TAB 12.5 MG ONE (10:30)
[2020-11-17] MEDS: COREG TAB 12.5 MG PO SCH ×3 (10:40→20:35)
[2020-11-17] MEDS: MILK OF MAGNESIA PO SCH (13:42)
--- NOTE | 2020-11-17 18:29 | PCM.PROG ---
Progress Note - Progress Note for Day of Date of Exam: 11/17/20 - Subjective Subjective: Mr. Lopez is a 60-year-old white male suffering from COVID-19 pneumonia, hypoxia, and respiratory failure requiring mechanical ventilation. The patient remains on the ventilator with FIO2 at 90. His PO2 65. His oxygen saturation on the monitor was 92. He is on multi-medication regimen including Zyvox, Zithromax, and Zosyn. He is also on high-dose corticosteroid therapy. We did also order IV Lasix to be continued with strict I&Os. He does have a Zafar catheter. The patients blood pressure had been running a little low due to sedative mediations. We held his Lisinopril but continued Carvedilol. The Propofol and Versed had his blood pressure running on the low side. Renal f unction remained stable with a BUN of 30 and creatine of 0.63. His blood pressure has creeped back up, 150'S/ increased coreg to 25mg bid. Plan to repeat am labs and chest xray. - Past Medical Family Social History Past Med/Fam/Surg Hx: No changes since H&P Allergies: Allergies No Known Drug Allergies Allergy (Verified 10/19/20 06:47) - Review of Systems ROS: No change since H&P - Vital Signs and I&O's Vital Signs: Temperature 100.0 F Pulse Rate [Apical] 77 Pulse Rate 88 Respiratory Rate 21 Blood Pressure [Right Arm] 102/57 Blood Pressure [Right Radial 162/77 Artery] Blood Pressure [Left Arm] 189/98 Blood Pressure 134/67 O2 Sat by Pulse Oximetry 94 Intake and Output: Intake & Output 11/15/20 11/16/20 11/17/20 11/18/20 11:59 11:59 11:59 11:59 Intake Total 3773 / 3773 1401 / 1401 2841 / 2841 1410 / 1410 Output Total 4955 / 4955 3885 / 3885 2400 / 2400 1500 / 1500 Balance -1182 / -1182 -2484 / -2484 441 / 441 -90 / -90 - Physical Exam Oriented: Normal Eyes: Normal Ear: Normal Nose: Normal Throat: Normal Respiratory: Diminished Cardiovascular: Normal : Normal Auscultation: Bowel Sounds: Normal Tenderness: Normal Skin: Decreased Turgur Musculoskeletal: Motor Deficit (diffuse weakness, muscle atrophy) Psychiatric: Anxiety Affect: Anxious Speech Pattern: Artificially Ventilated - Laboratory and Diagnostics Result Diagrams: 11/17/20 04:40 11/17/20 04:40 Labs: 11/11/20 17:02 Blood Blood Culture - Preliminary 11/11/20 16:40 Blood Blood Culture - Final 11/11/20 16:09 Urine,Clean Catch Urine Culture - Final 10/28/20 14:45 Stool Stool Culture - Final 10/28/20 14:45 Stool - Final 10/19/20 06:50 Blood Blood Culture - Final 10/19/20 06:50 Blood Blood Culture - Final 10/20/20 13:30 Urine,Clean Catch Urine Culture - Final 10/21/20 04:05 Sputum - Expectorated Sputum Sputum Culture - Final 10/21/20 04:05 Sputum - Expectorated Sputum - Final Laboratory WBC 16.9 X10^3/uL (3.6-10.0) H 11/17/20 04:40 RBC 4.12 X10^6/uL (4.7-6.0) L 11/17/20 04:40 Hgb 12.6 g/dL (13.5-18.0) L 11/17/20 04:40 Hct 37.7 % (42.0-54.0) L 11/17/20 04:40 MCV 91.4 fL (80.0-100.0) 11/17/20 04:40 MCH 30.5 pg (27.0-34.0) 11/17/20 04:40 MCHC 33.3 g/dL (33.0-35.0) 11/17/20 04:40 RDW 13.2 % (11.6-16.5) 11/17/20 04:40 Plt Count 114 X10^3/uL (150.0-450.0) L 11/17/20 04:40 Plt Count Comment Decreased (ADEQUATE) 11/17/20 04:40 MPV 8.2 fL (7.4-11.0) 11/17/20 04:40 Neut % (Auto) 92.3 % (42.0-75.0) H 11/17/20 04:40 Lymph % (Auto) 3.5 % (21.0-51.0) L 11/17/20 04:40 [place] % (Auto) 4.1 % (0.0-13.0) 11/17/20 04:40 Eos % (Auto) 0.0 % (0.9-2.9) L 11/17/20 04:40 Baso % (Auto) 0.1 % (0.2-1.0) L 11/17/20 04:40 Neut # (Auto) 15.6 x10^3/uL (2.2-4.8) H 11/17/20 04:40 Lymph # (Auto) 0.6 X10^3/uL (1.3-2.9) L 11/17/20 04:40 [place] # (Auto) 0.7 x10^3/uL (0.3-0.8) 11/17/20 04:40 Eos # (Auto) 0.0 x10^3/uL (0.0-0.2) 11/17/20 04:40 Baso # (Auto) 0.0 X10^3/uL (0.0-0.1) 11/17/20 04:40 Absolute Nucleated RBC 0.0 /100WBC 11/17/20 04:40 Total Counted 100 11/17/20 04:40 Neutrophils % (Manual) 91 % (39-76) H 11/17/20 04:40 Band Neutrophils % 2 % (0-10) 11/17/20 04:40 Lymphocytes % (Manual) Not Reportable 11/17/20 04:40 Monocytes % (Manual) 5 % (4-9) 11/17/20 04:40 Basophils % (Manual) 1 % (0-1) 10/24/20 06:05 Myelocytes % 4 10/24/20 06:05 Plt Clumps, EDTA Few 10/23/20 05:35 Plt Morphology Comment Normal (NORMAL) 11/17/20 04:40 RBC Morphology Normal (NORMAL) 11/17/20 04:40 PT 16.1 SECONDS (11.8-14.3) 10/19/20 06:50 INR Target Range - 10/19/20 06:50 INR 1.33 (0.8-1.3) H 10/19/20 06:50 APTT 31.5 SECONDS (22.9-36.5) 10/19/20 06:50 PTT Comment - 10/19/20 06:50 D-Dimer 1.34 ug/ml (0.0-0.57) H* 11/17/20 04:35 Sample Site Lrad 11/17/20 05:06 ABG pH 7.480 (7.35-7.45) H 11/17/20 05:06 ABG pCO2 64.0 mmHg (35.0-45.0) H* 11/17/20 05:06 ABG pO2 65.0 mmHg (80.0-100.0) L 11/17/20 05:06 ABG HCO3 47.7 mmol/L (22-26) H* 11/17/20 05:06 ABG O2 Saturation 94.0 % (90-100) 11/17/20 05:06 ABG Base Excess 20.6 mmol/L (-2.0-2.0) H 11/17/20 05:06 Abad Test Pos 11/17/20 05:06 A-a Gradient 497.0 mmHg 11/17/20 05:06 FiO2 90.0 11/17/20 05:06 Blood Gas Comments Gail abg well-mtf 11/17/20 05:06 Sodium 144 mmol/L (136-145) 11/17/20 04:40 Corrected Sodium 147 mmol/L (136-145) H 11/17/20 04:40 Potassium 3.9 mmol/L (3.5-5.1) 11/17/20 04:40 Chloride 102 mmol/L (98-107) 11/17/20 04:40 Carbon Dioxide 38.2 mmol/L (21-32) H 11/17/20 04:40 BUN 31 mg/dL (7-18) H 11/17/20 04:40 Creatinine 0.60 mg/dL (0.70-1.30) L 11/17/20 04:40 Est GFR (MDRD) Af Amer > 60 (>60) 11/17/20 04:40 Est GFR (MDRD) Non-Af > 60 (>60) 11/17/20 04:40 Glucose 227 mg/dL (65-99) H 11/17/20 04:40 POC Glucose (mg/dL) 236 mg/dL (65-99) H 11/17/20 16:39 Hemoglobin A1c 6.7 % 10/21/20 08:40 Lactic Acid 1.4 mmol/L (0.4-2.0) 10/20/20 13:43 Calcium 7.9 mg/dL (8.5-10.1) L 11/17/20 04:40 Corrected Calcium 9.7 mg/dL (8.5-10.1) 11/17/20 04:40 Magnesium 2.2 mg/dL (1.7-2.9) 11/14/20 04:20 Ferritin 779 ng/mL (26-388) H 10/19/20 06:50 Total Bilirubin 0.60 mg/dL (0.2-1.0) 11/17/20 04:40 AST 32 Units/L (15-37) 11/17/20 04:40 ALT 71 Units/L (12-78) 11/17/20 04:40 Alkaline Phosphatase 82 Units/L (46-116) 11/17/20 04:40 Creatine Kinase 120 Units/L (39-308) 10/21/20 08:40 CK-MB (CK-2) < 1.0 ng/mL (0-4.0) 10/21/20 08:40 CK/CKMB % Calc 0.8 % (<4) 10/21/20 08:40 Troponin I 0.04 ng/mL (0-1.5) 10/21/20 08:40 C-Reactive Protein 2.50 mg/L (0-3.0) 11/04/20 05:00 B-Natriuretic Peptide 214 pg/mL (0-79) H 11/04/20 05:00 Total Protein 4.8 g/dL (6.4-8.2) L 11/17/20 04:40 Albumin 1.7 g/dL (3.4-5.0) L 11/17/20 04:40 Globulin 3.1 g/dL (2.5-4.5) 11/17/20 04:40 Albumin/Globulin Ratio 0.5 Ratio (1.1-2.1) L 11/17/20 04:40 Prealbumin 17.7 mg/dL (18-35.7) L 11/01/20 04:35 Specimen Type Cancelled 11/11/20 16:29 Specimen Type Clean catch urine 11/11/20 16:29 Urine Color Cancelled 11/11/20 16:29 Urine Color Yellow (YELLOW) 11/11/20 16:29 Urine Appearance Cancelled 11/11/20 16:29 Urine Appearance Clear (CLEAR) 11/11/20 16:29 Urine pH 5.0 (5.0 - 8.0) 11/11/20 16:29 Urine pH Cancelled 11/11/20 16:29 Ur Specific [place] 1.015 (1.000-1.030) 11/11/20 16:29 Ur Specific [place] Cancelled 11/11/20 16:29 Urine Protein 2+ (NEGATIVE) 11/11/20 16:29 Urine Protein Cancelled 11/11/20 16:29 Urine Glucose (UA) 3+ (NEGATIVE) 11/11/20 16:29 Urine Glucose (UA) Cancelled 11/11/20 16:29 Urine Ketones Cancelled 11/11/20 16:29 Urine Ketones Negative (NEGATIVE) 11/11/20 16:29 Urine Occult Blood 4+ (NEGATIVE) 11/11/20 16:29 Urine Occult Blood Cancelled 11/11/20 16:29 Urine Nitrite Cancelled 11/11/20 16:29 Urine Nitrite Negative (NEGATIVE) 11/11/20 16:29 Urine Bilirubin Cancelled 11/11/20 16:29 Urine Bilirubin Negative (NEGATIVE) 11/11/20 16:29 Urine Urobilinogen Cancelled 11/11/20 16:29 Urine Urobilinogen Normal (NORMAL) 11/11/20 16:29 Ur Leukocyte Esterase 1+ (NEGATIVE) 11/11/20 16:29 Ur Leukocyte Esterase Cancelled 11/11/20 16:29 Urine RBC 10-20 /HPF (0-3) A 11/11/20 16:29 Urine WBC 3-5 /HPF (0-5) 11/11/20 16:29 Ur Squamous Epith Cells Rare /HPF (NEGATIVE) 11/11/20 16:29 Amorphous Sediment 1+ /HPF (NEGATIVE) 10/20/20 13:30 Urine Bacteria Trace /HPF (NEGATIVE) 11/11/20 16:29 Urine Mucus Rare /HPF (NEGATIVE) 11/11/20 16:29 Urine Sperm Rare /HPF (NEGATIVE) 11/11/20 16:29 Ur Culture Indicated? Yes/culture set up 11/11/20 16:29 SARS CoV-2 RNA Rapid HARINDER Positive (NEGATIVE) A 10/19/20 12:28 Miscellaneous Test Covid 19 10/29/20 17:00 Blood Type B POSITIVE 10/21/20 08:40 - Plan (1) Pneumonia due to COVID-19 virus Status: Acute Plan: COVID-19 pneumonia with hypoxia. Continue IV antibiotics, respiratory th erapy, supplemental oxygen, and pulmonary toileting. Repeat a.m. labs, ABG, and a chest x-ray. (2) Hypertension Status: Acute (3) COVID-19 Status: Acute (4) Diabetes mellitus Status: Acute
[2020-11-17] MEDS: SNACK - Diabetic Appropriate PO SCH (19:16)
[2020-11-17] MEDS: ARTIFICIAL TEARS DROPS AFFEYE SCH (20:33)
[2020-11-18] MEDS: DIPRIVAN PREMIX 1 GRAM IV 1,000 MG/100 ML VIAL IV PRN (03:00)
[2020-11-18] MEDS ORDERED: NS 1/2 1000 ML IV 1,000 ML IV ONE (03:28)
[2020-11-18 04:43] LABS: BASOPHILS % (AUTO) 0.1 % (0.2-1.0); LYMPHOCYTES # (AUTO) 0.7 X10^3/uL (1.3-2.9); LYMPHOCYTES % (AUTO) 4.2 % (21.0-51.0); MEAN CORPUSCULAR HEMOGLOBIN 30.8 pg (27.0-34.0); MEAN CORPUSCULAR HGB CONC 33.3 g/dL (33.0-35.0); MEAN CORPUSCULAR VOLUME 92.3 fL (80.0-100.0); MEAN PLATELET VOLUME 8.3 fL (7.4-11.0); MONOCYTES % (AUTO) 6.1 % (0.0-13.0); NEUTROPHILS # (AUTO) 14.2 x10^3/uL (2.2-4.8); NEUTROPHILS % (AUTO) 89.6 % (42.0-75.0); PLATELET COUNT 106 X10^3/uL (150.0-450.0); WHITE BLOOD COUNT 15.8 X10^3/uL (3.6-10.0)
[2020-11-18] MEDS: NS 1/2 1000 ML IV 1,000 ML IV SCH (05:04)
[2020-11-18 05:05] LABS: ALANINE AMINOTRANSFERASE 67 Units/L (12-78); ALBUMIN 1.6 g/dL (3.4-5.0); ALKALINE PHOSPHATASE 73 Units/L (46-116); ASPARTATE AMINO TRANSFERASE 29 Units/L (15-37); BLOOD UREA NITROGEN 29 mg/dL (7-18); CALCIUM 7.9 mg/dL (8.5-10.1); CHLORIDE 105 mmol/L (98-107); COR CA(FOR HYPOALB) 9.8 mg/dL (8.5-10.1); COR NA(FOR HYPERGLY) 148 mmol/L (136-145); CREATININE 0.61 mg/dL (0.70-1.30); SODIUM 145 mmol/L (136-145); TOTAL PROTEIN 4.4 g/dL (6.4-8.2); eGFR NON BLACK RACES > 60 (>60)
[2020-11-18] MEDS: ZOSYN VIAL 4.5 GRAMS 4.5 G in NS 100 ML IV + SPIKE MINIBAG* 100 ML IV SCH ×2 (05:05→13:44)
[2020-11-18] MEDS: SOLU-Medrol 125 MG VIAL IVP SCH ×2 (05:05→13:44)
[2020-11-18 05:09] LABS: CARBON DIOXIDE 40.4 mmol/L (21-32)
[2020-11-18 05:31] LABS: ABG BASE EXCESS 21.2 mmol/L (-2.0-2.0)
[2020-11-18 05:32] LABS: ABG ALLEN TEST POS; ABG HCO3 48.4 mmol/L (22-26)
[2020-11-18] MEDS: HumuLIN R SUBCUT PRN ×2 (05:34→11:57)
[2020-11-18] MEDS: K-RIDER 10 MEQ/NS 100 ML 10 MEQ/100 ML BAG IV PRN (05:35)
[2020-11-18] MEDS: BUTT CREAM (COMPOUND) TOP PRN (06:00)
[2020-11-18 06:05] LABS: PLATELET MORPHOLOGY COMMENT NORMAL (NORMAL)
[2020-11-18] MEDS ORDERED: DOPAMINE IV PREMIX 400 MG/250 ML 0 MG/0 ML BAG IV ONE (06:08)
[2020-11-18] MEDS: DUONEB 0.5 MG/3 MG (3 mL) NEB SCH ×2 (06:45→13:35)
[2020-11-18] MEDS ORDERED: LEXAPRO ONE (09:15)
[2020-11-18] MEDS: LASIX IVP SCH (09:42)
[2020-11-18] MEDS: LEVEMIR SC SCH (09:42)
[2020-11-18] MEDS: MAGIC MOUTHWASH MT SCH ×2 (09:43→12:17)
[2020-11-18] MEDS: LOVENOX INJ 30 MG SYR SC SCH (09:43)
[2020-11-18] MEDS: PROTONIX INJ 40 MG VIAL IVP SCH (09:44)
[2020-11-18] MEDS: VIBRAMYCIN 100 MG in D5W 250 ML IV 250 ML IV SCH (09:44)
[2020-11-18] MEDS: COREG TAB 12.5 MG PO SCH (10:00)
[2020-11-18] MEDS: LEXAPRO PO SCH (10:00)
[2020-11-18] MEDS: LIPITOR TAB 80 MG PO SCH (10:00)
[2020-11-18] MEDS: PEPCID TAB 40 MG PO SCH (10:01)
[2020-11-18] MEDS: ZITHROMAX TAB 250 MG PO SCH (10:01)
[2020-11-18] MEDS: ZINC SULFATE PO SCH (10:02)
[2020-11-18] MEDS: VITAMIN D3 125 mcg (5,000 UNITS) PO SCH (10:02)
[2020-11-18] MEDS: TRICOR TAB 160 MG PO SCH (10:02)
[2020-11-18] MEDS: NYSTATIN SUSP PO SCH ×2 (10:03→12:17)
[2020-11-18] MEDS: VSL#3 PO SCH (10:03)
[2020-11-18] MEDS: VITAMIN A PO SCH (10:03)
[2020-11-18] MEDS: NYSTATIN POWDER TOP SCH (10:03)
[2020-11-18] MEDS: MILK OF MAGNESIA PO SCH (10:04)
[2020-11-18] MEDS: ZYVOX 600MG IV 600 MG/300 ML BAG IV SCH (10:07)
[2020-11-18] MEDS: VERSED IV PREMIX 100 MG/100 ML IV.SOLN IV PRN (10:32)
[2020-11-18 15:56] VITALS: BP 109/60
== END 2020-11-18 16:00 | disposition short-term general hospital (02) | DRG 207 ==
LOC: ER 06:39 → OBS 08:22 → MED/SURG 10-20 15:09 → ICU 10-25 16:50
PROVIDERS: ADMIT Internal Medicine; ATTEND Internal Medicine
DX: M62.50 Muscle wasting and atrophy, not elsewhere classified, unspecified site; J12.81 Pneumonia due to SARS-associated coronavirus; E11.65 Type 2 diabetes mellitus with hyperglycemia; J93.83 Other pneumothorax; J96.01 Acute respiratory failure with hypoxia; R07.89 Other chest pain; I95.9 Hypotension, unspecified; F41.1 Generalized anxiety disorder; I10 Essential (primary) hypertension; U07.1 COVID-19